=== PATIENT | female | born 1975 | race Caucasian/White ===

== ENCOUNTER → 2018-06-30 | Outpatient (CLI) | payer MEDICAID ==
--- NOTE | 2018-06-30 08:45 | MM ---
Reason for exam: clinical finding. Last mammogram was performed 3 years ago. History: Took hormonal contraceptives for 8 years. Indicated problem(s): lump or thickening in the left breast. Physical Findings: Nurse did not find any significant physical abnormalities on exam. MG 3D Diag Mammo W/Cad PHILLY Bilateral CC, MLO, and XCCL view(s) were taken. Prior study comparison: July 12, 2015, bilateral MG 3d screening mammo w/cad. December 19, 2010, right diagnostic mammogram w/CAD. The breast tissue is heterogeneously dense. This may lower the sensitivity of mammography. There are benign appearing round calcifications bilaterally. There is no discrete abnormality. These results were verbally communicated with the patient and result sheet given to the patient on 06/30/18. ASSESSMENT: Incomplete: need additional imaging evaluation, BI-RAD 0 RECOMMENDATION: Ultrasound of the left breast. (palpable by doctor)
--- NOTE | 2018-06-30 08:47 | USB ---
Reason for exam: clinical finding. History: Took hormonal contraceptives for 8 years. US Breast Limited LT Left limited breast ultrasound including focal area of concern, retroareolar and axilla demonstrates no cystic or solid lesion seen. These results were verbally communicated with the patient and result sheet given to the patient on 06/30/18. ASSESSMENT: Negative, BI-RAD 1 RECOMMENDATION: Routine screening mammogram of both breasts in 1 year. Manage on a clinical basis with regard to left palpable.
== END ==
LOC: RADMAMWWP 06:58
PROVIDERS: ATTEND Family Medicine
DX: N63.10 Unspecified lump in the right breast, unspecified quadrant (principal); N63.20 Unspecified lump in the left breast, unspecified quadrant; R92.8 Other abnormal and inconclusive findings on diagnostic imaging of breast
CPT/HCPCS: 77062; 77066

== ENCOUNTER 2020-04-17 10:20 | Inpatient (IN) | payer MEDICAID, OTHER ==
[2020-04-17] MEDS ORDERED: DEXAMETHASONE SOD PHOSPHATE 10 MG/ML 1 ML VIAL IV STA (10:42)
--- NOTE | 2020-04-17 10:42 | ED ---
General Adult HPI - General Chief complaint: Shortness of Breath Stated complaint: Fever, MAIDA, Chest Pain Time Seen by Provider: 04/17/20 10:29 Source: patient Mode of arrival: ambulatory Limitations: no limitations - History of Present Illness Initial comments: Dictation was produced using [employer] dictation software. please excuse any grammatical, word or spelling errors. This patient was cared for during a federal and state declared state of e mergency secondary to Covid 19 Chief Complaint: 44-year-old female presents to the emergency department for dyspnea History of Present Illness: Is a 44-year-old female. She is in the emergency department for dyspnea. Patient believes that she has Covid. Patient recently returned from [place] where she spent several days in [place]. She has increased fatigue and weakness. She also has fever and shortness of breath. Patient does also complain of palpitations. Patient's past medical history dyslipidemia and hypertension. She does have history of tobacco use. History is limited due to patient's acute dyspnea. She denies any leg pain. No history of DVT. The ROS documented in this emergency department record has been reviewed and confirmed by me. Those systems with pertinent positive or negative responses have been documented in the HPI. All other systems are other negative and/or noncontributory. PHYSICAL EXAM: General Impression: Alert and oriented x3, respiratory distress, tachypneic HEENT: Normocephalic atraumatic, extra-ocular movements intact, pupils equal and reactive to light bilaterally, mucous membranes moist. Cardiovascular: Tachycardic Chest: 2 word sentences, mild retractions, tachypneic, diffuse lung crackles with auscultation of the lungs Abdomen: abdomen soft, non-tender, non-distended, no organomegaly Musculoskeletal: Pulses present and equal in all extremities, no peripheral edema Motor: no focal deficits noted Neurological: CN II-XII grossly intact, no focal motor or sensory deficits noted Skin: Intact with no visualized rashes Psych: Normal affect and mood ED course: 44-year-old female presents to the emergency department for dyspnea. Signs upon arrival shows heart rate of 135, oxygen saturation of 76% on room air. Patient does not use home O2. Patient is toxic appearing due to respiratory distress. She has severe crackles diffusely with auscultation to the lungs. Chest x-ray shows dictation of the complete right hemithorax and left inferior hemithorax. Patient based on BiPAP for respiratory support. suspect covid 19 with ARDS. Laboratory evaluation obtained. Leukocytosis 23.2, neutrophils of 20.8. Coag panel is negative. Metabolic panel obtained. Mild hyponatremia 131, anion gap of 17 with a bicarb of 16. Elevated renal markers. Slight elevation in liver markers. Arterial blood gas shows pH of 7.34, pCO2 of 33, pO2 of 77 with a FiO2 of 60. No lactic acidosis. Troponin is negative. Patient started on broad- spectrum antibiotics. Case is discussed with director prospect Dr. Zarco who is willing to accept patients care to the ICU. Case was also discussed with Dr. Jordan was willing to accept patient's care on behalf of [facility] hospitalist group.Physical concern of sepsis however patient does not have lactic acidosis noted that she have hypertension. Nonetheless given patient's respiratory status she'll be admitted to ICU. EKG interpretation: Ventricular rate 133, sinus tachycardia,. Interval 124, QRS 84, QTC 449. No UT prolongation, no QTC prolongation, no ST or T-wave changes noted. - Related Data Home Medications Medication Instructions Recorded Confirmed Ibuprofen [Motrin] 800 mg PO TID PRN 08/15/18 04/17/20 Montelukast [Singulair] 10 mg PO HS 08/15/18 04/17/20 Simvastatin [Zocor] 20 mg PO HS 08/15/18 04/17/20 Albuterol Sulfate [Albuterol 2 puff PO Q4H PRN 04/17/20 04/17/20 Sulfate Hfa] Fluticasone Nasal [place] [Flonase 1 spray EA NOSTRIL BID 04/17/20 04/17/20 Nasal [place]] Irbesartan [Avapro] 300 mg PO DAILY 04/17/20 04/17/20 Triamterene/Hydrochlorothiazid 1 cap PO DAILY 04/17/20 04/17/20 [Dyazide 37.5-25 Capsule] amLODIPine [Norvasc] 5 mg PO DAILY 04/17/20 04/17/20 Allergies Allergy/AdvReac Type Severity Reaction Status Date / Time codeine AdvReac night Verified 04/17/20 11:44 sweats Review of Systems ROS Statement: Those systems with pertinent positive or pertinent negative responses have been documented in the HPI. ROS Other: All systems not noted in ROS Statement are negative. Past Medical History Past Medical History: Hyperlipidemia, Hypertension Additional Past Medical History / Comment(s): PCOS History of Any Multi-Drug Resistant Organisms: None Reported Past Surgical History: Section, Tubal Ligation Additional Past Surgical History / Comment(s): cyst removal, Past Psychological History: No Psychological Hx Reported Smoking Status: Current every day smoker Past Alcohol Use History: Daily Past Drug Use History: None Reported - Past Family History Father Family Medical History: Diabetes Mellitus Mother Additional Family Medical History / Comment(s): Mother of ETOH abuse at the age of 61 yrs. General Exam Limitations: no limitations Course Vital Signs 04/17/20 04/17/20 04/17/20 10:23 11:09 12:50 Temperature 98.7 F 99.0 F Pulse Rate 135 H 129 H Respiratory 18 22 Rate Blood Pressure 117/71 102/58 O2 Sat by Pulse 76 L 93 L 93 L Oximetry Medical Decision Making - Lab Data Result diagrams: 04/17/20 11:02 04/17/20 11:02 Lab Results 04/17/20 04/17/20 04/17/20 Range/Units 11:02 11:02 11:02 WBC 23.2 H (3.8-10.6) k/uL RBC 4.31 (3.80-5.40) m/uL Hgb 13.6 (11.4-16.0) gm/dL Hct 39.5 (34.0-46.0) % MCV 91.7 (80.0-100.0) fL MCH 31.6 (25.0-35.0) pg MCHC 34.4 (31.0-37.0) g/dL RDW 14.6 (11.5-15.5) % Plt Count 213 (150-450) k/uL MPV 10.7 Neutrophils % (Manual) 59 % Band Neuts % (Manual) 31 % Lymphocytes % (Manual) 1 % Monocytes % (Manual) 3 % Eosinophils % (Manual) 1 % Metamyelocytes % 5 % Myelocytes % 2 % Neutrophils # (Manual) 20.80 H (1.3-7.7) k/uL Lymphocytes # (Manual) 0.23 L (1.0-4.8) k/uL Monocytes # (Manual) 0.70 (0-1.0) k/uL Eosinophils # (Manual) 0.23 (0-0.7) k/uL Metamyelocytes # (Man) 1.16 H (0) k/uL Myelocytes # (Manual) 0.46 H (0) k/uL Nucleated RBCs 0 (0-0) /100 WBC Manual Slide Review Performed Toxic Granulation Present Toxic Vacuolation Present PT (9.0-12.0) sec INR (<1.2) APTT (22.0-30.0) sec Sodium 131 L (137-145) mmol/L Potassium 4.0 (3.5-5.1) mmol/L Chloride 98 (98-107) mmol/L Carbon Dioxide 16 L (22-30) mmol/L Anion Gap 17 mmol/L BUN 42 H (7-17) mg/dL Creatinine 1.65 H (0.52-1.04) mg/dL Est GFR (CKD-EPI)AfAm 43 (>60 ml/min/1.73 sqM) Est GFR (CKD-EPI)NonAf 37 (>60 ml/min/1.73 sqM) Glucose 90 (74-99) mg/dL POC Glucose (mg/dL) (75-99) mg/dL POC Glu Brusher ID Plasma Lactic Acid Abr[place] 1.8 (0.7-2.0) mmol/L Calcium 8.1 L (8.4-10.2) mg/dL Magnesium 1.9 (1.6-2.3) mg/dL Total Bilirubin 0.8 (0.2-1.3) mg/dL AST 150 H (14-36) U/L ALT 57 H (4-34) U/L Alkaline Phosphatase 136 H (38-126) U/L Troponin I (0.000-0.034) ng/mL NT-Pro-B Natriuret Pep pg/mL Total Protein 6.0 L (6.3-8.2) g/dL Albumin 3.1 L (3.5-5.0) g/dL Coronavirus (PCR) (Not Detectd) 04/17/20 04/17/20 04/17/20 Range/Units 11:02 11:02 11:02 WBC (3.8-10.6) k/uL RBC (3.80-5.40) m/uL Hgb (11.4-16.0) gm/dL Hct (34.0-46.0) % MCV (80.0-100.0) fL MCH (25.0-35.0) pg MCHC (31.0-37.0) g/dL RDW (11.5-15.5) % Plt Count (150-450) k/uL MPV Neutrophils % (Manual) % Band Neuts % (Manual) % Lymphocytes % (Manual) % Monocytes % (Manual) % Eosinophils % (Manual) % Metamyelocytes % % Myelocytes % % Neutrophils # (Manual) (1.3-7.7) k/uL Lymphocytes # (Manual) (1.0-4.8) k/uL Monocytes # (Manual) (0-1.0) k/uL Eosinophils # (Manual) (0-0.7) k/uL Metamyelocytes # (Man) (0) k/uL Myelocytes # (Manual) (0) k/uL Nucleated RBCs (0-0) /100 WBC Manual Slide Review Toxic Granulation Toxic Vacuolation PT (9.0-12.0) sec INR (<1.2) APTT (22.0-30.0) sec Sodium (137-145) mmol/L Potassium (3.5-5.1) mmol/L Chloride (98-107) mmol/L Carbon Dioxide (22-30) mmol/L Anion Gap mmol/L BUN (7-17) mg/dL Creatinine (0.52-1.04) mg/dL Est GFR (CKD-EPI)AfAm (>60 ml/min/1.73 sqM) Est GFR (CKD-EPI)NonAf (>60 ml/min/1.73 sqM) Glucose (74-99) mg/dL POC Glucose (mg/dL) (75-99) mg/dL POC Glu Brusher ID Plasma Lactic Acid Abran (0.7-2.0) mmol/L Calcium (8.4-10.2) mg/dL Magnesium (1.6-2.3) mg/dL Total Bilirubin (0.2-1.3) mg/dL AST (14-36) U/L ALT (4-34) U/L Alkaline Phosphatase (38-126) U/L Troponin I <0.012 (0.000-0.034) ng/mL NT-Pro-B Natriuret Pep 275 pg/mL Total Protein (6.3-8.2) g/dL Albumin (3.5-5.0) g/dL Coronavirus (PCR) Not Detected (Not Detectd) 04/17/20 04/17/20 Range/Units 11:33 11:33 WBC (3.8-10.6) k/uL RBC (3.80-5.40) m/uL Hgb (11.4-16.0) gm/dL Hct (34.0-46.0) % MCV (80.0-100.0) fL MCH (25.0-35.0) pg MCHC (31.0-37.0) g/dL RDW (11.5-15.5) % Plt Count (150-450) k/uL MPV Neutrophils % (Manual) % Band Neuts % (Manual) % Lymphocytes % (Manual) % Monocytes % (Manual) % Eosinophils % (Manual) % Metamyelocytes % % Myelocytes % % Neutrophils # (Manual) (1.3-7.7) k/uL Lymphocytes # (Manual) (1.0-4.8) k/uL Monocytes # (Manual) (0-1.0) k/uL Eosinophils # (Manual) (0-0.7) k/uL Metamyelocytes # (Man) (0) k/uL Myelocytes # (Manual) (0) k/uL Nucleated RBCs (0-0) /100 WBC Manual Slide Review Toxic Granulation Toxic Vacuolation PT 10.3 (9.0-12.0) sec INR 1.0 (<1.2) APTT 26.8 (22.0-30.0) sec Sodium (137-145) mmol/L Potassium (3.5-5.1) mmol/L Chloride (98-107) mmol/L Carbon Dioxide (22-30) mmol/L Anion Gap mmol/L BUN (7-17) mg/dL Creatinine (0.52-1.04) mg/dL Est GFR (CKD-EPI)AfAm (>60 ml/min/1.73 sqM) Est GFR (CKD-EPI)NonAf (>60 ml/min/1.73 sqM) Glucose (74-99) mg/dL POC Glucose (mg/dL) 98 (75-99) mg/dL POC Glu Brusher ID Simran Vincent Plasma Lactic Acid Abran (0.7-2.0) mmol/L Calcium (8.4-10.2) mg/dL Magnesium (1.6-2.3) mg/dL Total Bilirubin (0.2-1.3) mg/dL AST (14-36) U/L ALT (4-34) U/L Alkaline Phosphatase (38-126) U/L Troponin I (0.000-0.034) ng/mL NT-Pro-B Natriuret Pep pg/mL Total Protein (6.3-8.2) g/dL Albumin (3.5-5.0) g/dL Coronavirus (PCR) (Not Detectd) Critical Care Time Critical Care Time: Yes Total Critical Care Time: 33 Disposition Clinical Impression: Hypoxia, Respiratory failure Disposition: ADMITTED IP TO THIS [facility] Condition: Critical Decision Time: 13:07
--- NOTE | 2020-04-17 10:45 | XR ---
EXAMINATION TYPE: XR chest 1V portable DATE OF EXAM: 04/17/2020 COMPARISON: NONE HISTORY: Shortness of breath TECHNIQUE: Single frontal view of the chest is obtained. FINDINGS: There is diffuse bilateral airspace disease with near complete opacification of the right and significant consolidation on the left. No sizable pneumothorax. No obvious pleural effusion. IMPRESSION: Bilateral diffuse opacification. Pneumonia favored over pulmonary edema correlate clinic ally.
[2020-04-17] MEDS ORDERED: CEFEPIME 2 GM in SODIUM CHLORIDE 0.9% 100 ML IVPB STA (11:13)
[2020-04-17 11:33] LABS: HCT 39.5 % (34.0-46.0); HGB 13.6 gm/dL (11.4-16.0); MCH 31.6 pg (25.0-35.0); MCHC 34.4 g/dL (31.0-37.0); MCV 91.7 fL (80.0-100.0); Mean Platelet Volume 10.7; Platelet Count 213 k/uL (150-450); RBC 4.31 m/uL (3.80-5.40); RDW 14.6 % (11.5-15.5); WBC 23.2 k/uL (3.8-10.6)
[2020-04-17 11:34] LABS: Glucose,Whole Blood 98 mg/dL (75-99)
[2020-04-17 11:42] LABS: Albumin 3.1 g/dL (3.5-5.0); Calcium 8.1 mg/dL (8.4-10.2); Magnesium 1.9 mg/dL (1.6-2.3); Total Bilirubin 0.8 mg/dL (0.2-1.3)
[2020-04-17 11:46] LABS: Band Neutrophils % 31 %; Eosinophils # (M) 0.23 k/uL (0-0.7); Lymphocytes # (M) 0.23 k/uL (1.0-4.8); Metamyelocytes # (M) 1.16 k/uL (0); Metamyelocytes % 5 %; Myelocytes # (M) 0.46 k/uL (0); Myelocytes % 2 %; Neutrophils % (M) 59 %; Nucleated Red Blood Cells 0 /100 WBC (0-0); Total Cells Counted 200; Toxic Granulation Present; Toxic Vacuolation Present
--- NOTE | 2020-04-17 11:48 | CT ---
EXAMINATION TYPE: CT angio chest DATE OF EXAM: 04/17/2020 11:34 AM COMPARISON: None HISTORY: Shortness of breath and cough for [address] DLP: 414.5 mGycm Automated exposure control for dose reduction was used. CONTRAST: CTA scan of the thorax is performed with IV Contrast, patient injected with 100 mL of Isovue 370, pul monary embolism protocol. . FINDINGS: LUNGS: Diffuse bilateral consolidation greater on the right. Significant artifact limits assessment o f the pulmonary arteries. No pleural effusion or pneumothorax. MEDIASTINUM: There is limited assessment of the pulmonary arteries with extensive artifacts especiall y centrally. Cannot exclude central pulmonary embolism. Numerous areas of artifact are seen. Aorta of normal caliber. Heart size normal. OTHER: Deformity of the sternum on the sagittal image likely related to motion artifact rather than fracture correlate with point tenderness. Hypertrophic and degenerative changes of the spine. IMPRESSION: 1. Near complete consolidation of the right lung and extensive consolidation of the left lung correla te for pneumonia. 2. Severe artifacts results in nondiagnostic assessment for pulmonary embolism centrally. Could not e xclude pulmonary embolism on this exam. Correlate clinically. 3. Deformity of the sternum on the sagittal image most likely related to motion artifact rather than fracture correlate with point tenderness.
[2020-04-17] MEDS ORDERED: SODIUM CHLORIDE 0.9% 1,000 ML IV STA (11:51)
[2020-04-17] MEDS ORDERED: NALOXONE 0.4 MG/ML 1 ML VIAL IV PRN (12:01)
[2020-04-17 12:06] LABS: Partial Thromboplastin Time 26.8 sec (22.0-30.0); Prothrombin Time 10.3 sec (9.0-12.0)
[2020-04-17 12:17] LABS: ABG Base Excess -8.1 mmol/L; ABG HCO3 18 mmol/L (21-25); ABG PCO2 33 mmHg (35-45); ABG PH 7.34 (7.35-7.45); ABG PO2 77 mmHg (83-108); ABG TCO2 19 mmol/L (19-24); Allen Test Performed? Yes
--- NOTE | 2020-04-17 12:34 | P.HPIM ---
History of Present Illness 44-year-old the pleasant female came in with compensative for shortness of breath. General his body aches and fever chills patient symptoms has been going on for about a week patient recently returned from [place] from [place] patient is a unaware of any exposure to sick people although patient was exposed to many people when she visited a [place]. Patient had a chest x-ray and a computed tomography scan of the chest which showed extensive consolidation of the right lung and some consolidation and infiltrate consistent with "on the left side. Covid 19 PCR is still pending. Patient is presently on BiPAP patient is being admitted to intensive care unit Review of Systems REVIEW OF SYSTEMS: CONSTITUTIONAL: As mentioned in HPI HEENT: No recent visual problems or hearing problems. Denied any sore throat. CARDIOVASCULAR: No chest pain, orthopnea, PND, no palpitations, no syncope. PULMONARY: As mentioned in HPI GASTROINTESTINAL: No diarrhea, no nausea, no vomiting, no abdominal pain. NEUROLOGICAL: No headaches, no weakness, no numbness. HEMATOLOGICAL: Denies any bleeding or petechiae. GENITOURINARY: Denies any burning micturition, frequency, or urgency. MUSCULOSKELETAL/RHEUMATOLOGICAL: Denies any joint pain, swelling, or any muscle pain. ENDOCRINE: Denies any polyuria or polydipsia. The rest of the 14-point review of systems is negative. Past Medical History Past Medical History: Hyperlipidemia, Hypertension Additional Past Medical History / Comment(s): PCOS History of Any Multi-Drug Resistant Organisms: None Reported Past Surgical History: Section, Tubal Ligation Additional Past Surgical History / Comment(s): cyst removal, Past Psychological History: No Psychological Hx Reported Smoking Status: Current every day smoker Past Alcohol Use History: Daily Past Drug Use History: None Reported Medications and Allergies Home Medications Medication Instructions Recorded Confirmed Type Ibuprofen [Motrin] 800 mg PO TID PRN 08/15/18 04/17/20 History Montelukast [Singulair] 10 mg PO HS 08/15/18 04/17/20 History Simvastatin [Zocor] 20 mg PO HS 08/15/18 04/17/20 History Albuterol Sulfate [Albuterol 2 puff PO Q4H PRN 04/17/20 04/17/20 History Sulfate Hfa] Fluticasone Nasal [place] [Flonase 1 spray EA NOSTRIL BID 04/17/20 04/17/20 History Nasal [place]] Irbesartan [Avapro] 300 mg PO DAILY 04/17/20 04/17/20 History Triamterene/Hydrochlorothiazid 1 cap PO DAILY 04/17/20 04/17/20 History [Dyazide 37.5-25 Capsule] amLODIPine [Norvasc] 5 mg PO DAILY 04/17/20 04/17/20 History Allergies Allergy/AdvReac Type Severity Reaction Status Date / Time codeine AdvReac night Verified 04/17/20 11:44 sweats Physical Exam Vitals: Vital Signs Temp Pulse Resp BP Pulse Ox 04/17/20 11:09 93 L 04/17/20 10:23 98.7 F 135 H 18 117/71 76 L Intake and Output 04/16/20 04/17/20 04/17/20 22:59 06:59 14:59 Other: Weight 90.718 kg PHYSICAL EXAMINATION: GENERAL: The patient is alert and oriented x3, patient is still in acute distress in spite of her BiPAP. Well developed, well nourished. HEENT: Pupils are round and equally reacting to light. EOMI. No scleral icterus. No conjunctival pallor. Normocephalic, atraumatic. No pharyngeal erythema. No thyromegaly. CARDIOVASCULAR: S1 and S2 present. No murmurs, rubs, or gallops. PULMONARY: Good air entry into bilateral lung morales crackles on entire right p osterior lung morales. ABDOMEN: Soft, nontender, nondistended, normoactive bowel sounds. No palpable organomegaly. MUSCULOSKELETAL: No joint swelling or deformity. EXTREMITIES: No cyanosis, clubbing, or pedal edema. NEUROLOGICAL: Gross neurological examination did not reveal any focal deficits. SKIN: No rashes. Results CBC & Chem 7: 04/17/20 11:02 Labs: Abnormal Lab Results - Last 24 Hours (Table) 04/17/20 04/17/20 Range/Units 11:02 12:10 WBC 23.2 H (3.8-10.6) k/uL Neutrophils # (Manual) 20.80 H (1.3-7.7) k/uL Lymphocytes # (Manual) 0.23 L (1.0-4.8) k/uL Metamyelocytes # (Man) 1.16 H (0) k/uL Myelocytes # (Manual) 0.46 H (0) k/uL ABG pH 7.34 L (7.35-7.45) ABG pCO2 33 L (35-45) mmHg ABG pO2 77 L (83-108) mmHg ABG HCO3 18 L (21-25) mmol/L Assessment and Plan Plan: -Acute hypoxic respiratory failure: Secondary to sepsis and pneumonia which is again secondary to possible Covid 19 infection. Patient was given Decadron patient was also given empiric antibiotics as a secondary bacterial pneumonia cannot be ruled out and considering the severity of her hypoxemia and it's probably reasonable to continue with empiric antibiotics. Patient will be transferred to ICU user experience architect was notified. -Leukocytosis secondary to severe sepsis next and-hypertension hold off antiemesis medications with concerns of hypotension secondary to sepsis -DVT prophylaxis: D-dimer is pending depending on the d-dimer, will decide on the dose of Lovenox. I do not have any basic volley profile available at this time either -Tachycardia secondary to severe sepsis.
[2020-04-17 13:22] LABS: Glucose,Whole Blood 110 mg/dL (75-99)
[2020-04-17] MEDS ORDERED: ALBUTEROL NEBULIZED 2.5 MG/3 ML INHALATION PRN (13:55)
--- NOTE | 2020-04-17 14:10 | P.CNPUL ---
History of Present Illness Consult date: 04/17/20 Requesting physician: Thai Csatro Reason for consult: dyspnea, cough, asthma, hypoxemia, pneumonia, abnormal CXR/CT Chief complaint: Shortness of breath. History of present illness: This is a 44-year-old female that we were asked to see in consultation. The patient has a history of chronic bronchial asthma, hypertension, hyperlipidemia, and palpitations. The patient sees Dr. Jenkins as a primary. The patient has been smoking for about 32 years, and CHF 14. Anyway, the patient went down to [place] recently on vacation. She was irritable right around mid March. She was healthy down there without any major issues. She went down there with her and I note a couple. Nobody was sick or subsequently has gotten sick. In addition, no family members have been held. The patient states that last , she started getting symptoms. This included weakness and fatigu e, shortness of breath, cough, chest tightness, and generally just not feeling well. The shortness of breath got so bad, that she decided to come into the emergency room to be evaluated. There she was seen by Dr. Forbes. The patient initially came in with a heart rate of 135, and saturations on room air was 76%. The patient was placed on oxygen therapy there, had a chest x-ray, I CAT scan, blood work, and was given antibiotics. He call me on the phone because he thought the patient would be best served in the intensive care unit and I agreed. The patient's chest x-ray shows near complete opacification of the right hemithorax, as well as some infiltrate in the left midlung and left lower lobe. The computed tomography scan is very impressive as well. Her rapid antigen test for coronaavirus was negative. A PCR test was ordered. The CAT scan doesn't really look like COVID 19 but rather looks more consolidative like somebody with bacterial pneumonia. The patient was placed on Rocephin, and we added azithromycin. Currently, the patient's in the intensive care unit on BiPAP with settings of IPAP 12, EPAP 6, and 60%. The patient also has a basic IV. We will make sure that she has appropriate orders including albuterol inhaler, and Symbicort 160/4.5, 2 puffs twice a day. If her caronavirus PCR comes back negative, we'll switch her to Pulmicort 1 mg along with formoterol, 20 g, twice a day. We'll also place her on some corticosteroids. We'll add vitamin C, vitamin D3, and zinc. We'll also make sure that she has proper GI and DVT prophylaxis. Finally, we'll make sure that she has blood urine and sputum cultures, and, we will go ahead and order inflammatory markers, as well as mycoplasma IgM antibodies, and a urinary Legionella antigen. Review of Systems REVIEW OF SYSTEMS: CONSTITUTIONAL: Weakness and fatigue CONSTITUTIONAL: Slight fever NEUROLOGIC: [ Negative.] HEENT: [ Negative.] CARDIAC: [Negative.] PULMONARY: Shortness of breath, chest tightness, cough, without phlegm production. GI: [Negative.] : [Negative.] RHEUMATOLOGIC: [ Negative.] IMMUNOLOGIC: [ Negative.] ENDOCRINE: [Negative. ] DERMATOLOGIC: [Negative.] Past Medical History Past Medical History: Hyperlipidemia, Hypertension Additional Past Medical History / Comment(s): PCOS History of Any Multi-Drug Resistant Organisms: None Reported Past Surgical History: Section, Tubal Ligation Additional Past Surgical History / Comment(s): cyst removal, Past Anesthesia/Blood Transfusion Reactions: No Reported Reaction Past Psychological History: No Psychological Hx Reported Smoking Status: Current every day smoker Past Alcohol Use History: Daily Past Drug Use History: None Reported - Past Family History Father Family Medical History: Diabetes Mellitus Mother Additional Family Medical History / Comment(s): Mother of ETOH abuse at the age of 61 yrs. Medications and Allergies Home Medications Medication Instructions Recorded Confirmed Type Ibuprofen [Motrin] 800 mg PO TID PRN 08/15/18 04/17/20 History Montelukast [Singulair] 10 mg PO HS 08/15/18 04/17/20 History Simvastatin [Zocor] 20 mg PO HS 08/15/18 04/17/20 History Albuterol Sulfate [Albuterol 2 puff PO Q4H PRN 04/17/20 04/17/20 History Sulfate Hfa] Fluticasone Nasal [place] [Flonase 1 spray EA NOSTRIL BID 04/17/20 04/17/20 History Nasal [place]] Irbesartan [Avapro] 300 mg PO DAILY 04/17/20 04/17/20 History Triamterene/Hydrochlorothiazid 1 cap PO DAILY 04/17/20 04/17/20 History [Dyazide 37.5-25 Capsule] amLODIPine [Norvasc] 5 mg PO DAILY 04/17/20 04/17/20 History Allergies Allergy/AdvReac Type Severity Reaction Status Date / Time codeine AdvReac night Verified 04/17/20 11:44 sweats Physical Exam Osteopathic Statement: *. No significant issues noted on an osteopathic structural exam other than those noted in the History and Physical/Consult. Vitals: Vital Signs Temp Pulse Resp BP Pulse Ox 04/17/20 12:50 99.0 F 129 H 22 102/58 93 L 04/17/20 11:09 93 L 04/17/20 10:23 98.7 F 135 H 18 117/71 76 L Intake and Output 04/16/20 04/17/20 04/17/20 22:59 06:59 14:59 Other: Weight 90.718 kg Currently on BiPAP, conversational dyspnea present, no audible wheezing, no use of accessory muscles. Patient able to speak in full sentences. HEENT examination is grossly unremarkable. Mucous membranes are moist. BiPAP mask in place. Neck supple. Full range of motion. No adenopathy thyromegaly or neck vein distention. Cardiovascular examination reveals regular rhythm rate. S1-S2 normal. No S3 or S4. No discernible murmur noted. Heart sounds distant. Heart rate about 124 bpm. Lungs reveal diffuse coarse rhonchi. No wheezes or crackles. Breath sounds equal but diminished throughout. Abdomen soft bowel sounds are heard. No masses or tenderness. Extremities are intact. No cyanosis clubbing or edema. Skin is without rash or lesion. Neurologic examination is brief but nonfocal. Results - Laboratory Findings CBC and BMP: 04/17/20 11:02 04/17/20 11:02 ABG ABG pH 7.34 (7.35-7.45) L 04/17/20 12:10 ABG pCO2 33 mmHg (35-45) L 04/17/20 12:10 ABG pO2 77 mmHg (83-108) L 04/17/20 12:10 ABG O2 Saturation 95.0 % (94-97) 04/17/20 12:10 PT/INR, D-dimer PT 10.3 sec (9.0-12.0) 04/17/20 11:33 INR 1.0 (<1.2) 04/17/20 11:33 Abnormal lab findings: Abnormal Labs 04/17/20 04/17/20 04/17/20 11:02 11:02 12:10 WBC 23.2 H Neutrophils # (Manual) 20.80 H Lymphocytes # (Manual) 0.23 L Metamyelocytes # (Man) 1.16 H Myelocytes # (Manual) 0.46 H ABG pH 7.34 L ABG pCO2 33 L ABG pO2 77 L ABG HCO3 18 L Sodium 131 L Carbon Dioxide 16 L BUN 42 H Creatinine 1.65 H POC Glucose (mg/dL) Calcium 8.1 L AST 150 H ALT 57 H Alkaline Phosphatase 136 H C-Reactive Protein 608.0 H Total Protein 6.0 L Albumin 3.1 L 04/17/20 13:20 WBC Neutrophils # (Manual) Lymphocytes # (Manual) Metamyelocytes # (Man) Myelocytes # (Manual) ABG pH ABG pCO2 ABG pO2 ABG HCO3 Sodium Carbon Dioxide BUN Creatinine POC Glucose (mg/dL) 110 H Calcium AST ALT Alkaline Phosphatase C-Reactive Protein Total Protein Albumin - Diagnostic Findings Chest x-ray: image reviewed CT scan - chest: image reviewed Assessment and Plan Assessment: Extensive bilateral, right greater than left, pneumonia, thought to be community acquired. COVID 19 not ruled out at this point. Acute hypoxemic respiratory failure secondary to extensive consolidative pneumonia bilaterally. History of asthma. History of hypertension. History of hyperlipidemia. History of chronic tobacco use with nicotine addiction, having smoked for 32 years, rule out COPD. Mild metabolic acidosis. Rule out acute kidney injury. History of palpitations. Plan: Plan dated 04/17/2020. The patient is being maintained on BiPAP, with IPAP of 12, EPAP 6, and 60%. With that, her saturations are in the low 90s. The patient also has a basic IV in place. The patient was started on Rocephin and azithromycin for community- acquired pneumonia. Her rapid COVID test was negative. The confirmatory PCR test was also ordered. We will get blood urine and sputum sampling on her. In addition, she is given an albuterol inhaler, and Symbicort 160/4.5, 2 puffs twice a day. If her PCR comes back negative, we will switch her to DuoNeb, along with Pulmicort 1 mg, and formoterol 20 g twice a day. In addition, we will give her vitamin C, vitamin D3, and zinc a usual doses, and order inflammatory markers. We also order pro-calcitonin level. Her labs are reviewed. I count 23.2, he will 13.6, hematocrit 39.5, and platelet count 213,000. PT/INR and PTT are normal. A d-dimer will be ordered. Arterial blood gases on 60% show a PaO2 of 77, PaCO2 of 33, and a pH of 7.34. His blood gases consistent with hypoxemia, and a mild metabolic acidosis. The acidosis is an anion gap metabolic acidosis. Sodium 131, potassium 4, chloride 98, CO2 16, anion gap 17, BUN 42, and creatinine 1.65. Lactic acid initially was 1.8. Alkaline phosphatase 136, ALT was 57. Albumin 3.1. C-reactive protein 608. The patient will also have a urine antigen for Legionella, as well as mycoplasma IgM antibodies. Additional recommendations and suggestions are forthcoming. Prognosis is guarded. We are hoping that she responds to therapy and does not e nd up on mechanical ventilation. Time with Patient: Greater than 30
[2020-04-17] MEDS: SODIUM CHLORIDE 0.9% 1,000 ML IV SCH ×2 (16:03→20:49)
[2020-04-17] MEDS: ENOXAPARIN 40 MG/0.4 ML SYRINGE SQ SCH (16:04)
[2020-04-17] MEDS: methylPREDNISolone SOD SUCCI 40 MG/ML 1 ML VIAL IV SCH ×2 (16:05→23:36)
[2020-04-17] MEDS: FAMOTIDINE 20 MG/2 ML VIAL IV SCH (16:06)
[2020-04-17] MEDS: AZITHROMYCIN 500 MG in SODIUM CHLORIDE 0.9% 250 ML IVPB SCH (16:06)
[2020-04-17] MEDS: SYMBICORT 160-4.5 MCG INHALER INHALATION SCH (20:25)
[2020-04-17] MEDS: MONTELUKAST 10 MG TAB PO SCH (20:40)
[2020-04-17] MEDS: MELATONIN 5 MG TABLET PO SCH (20:40)
[2020-04-17] MEDS: ATORVASTATIN 10 MG TAB PO SCH (20:40)
[2020-04-17] MEDS: ASCORBIC ACID 500 MG TAB PO SCH (20:40)
[2020-04-17] MEDS: ACETAMINOPHEN TAB 325 MG TAB PO PRN (23:36)
[2020-04-18 04:27] LABS: Basophils # (A) 0.1 k/uL (0-0.2); Basophils % (A) 0 %; Eosinophils % (A) 0 %; HCT 35.4 % (34.0-46.0); HGB 11.9 gm/dL (11.4-16.0); Lymphocytes % (A) 4 %; MCH 31.5 pg (25.0-35.0); MCHC 33.7 g/dL (31.0-37.0); MCV 93.5 fL (80.0-100.0); Mean Platelet Volume 9.4; Monocytes # (A) 0.3 k/uL (0-1.0); Monocytes % (A) 2 %; Neutrophils # (A) 20.6 k/uL (1.3-7.7); Neutrophils % (A) 93 %; Platelet Count 179 k/uL (150-450); RBC 3.79 m/uL (3.80-5.40); RDW 14.1 % (11.5-15.5); WBC 22.1 k/uL (3.8-10.6)
[2020-04-18 04:41] LABS: Albumin 2.6 g/dL (3.5-5.0); Calcium 7.5 mg/dL (8.4-10.2); Potassium 3.6 mmol/L (3.5-5.1); Total Bilirubin 0.4 mg/dL (0.2-1.3); Total Protein 5.1 g/dL (6.3-8.2)
[2020-04-18] MEDS ORDERED: Potassium Replacement Protocol 1 EACH MISC MISCELLANE PRN (04:52)
[2020-04-18] MEDS: POTASSIUM CHLORIDE 10 MEQ in WATER FOR INJECTION 1 100ML.BAG IVPB SCH ×2 (04:56→06:03)
[2020-04-18] MEDS: SODIUM CHLORIDE 0.9% 1,000 ML IV SCH ×2 (06:03→14:24)
--- NOTE | 2020-04-18 06:51 | XR ---
EXAMINATION TYPE: XR chest 1V portable DATE OF EXAM: 04/18/2020 CLINICAL HISTORY: Difficulty breathing and pneumonia progress study. TECHNIQUE: Single AP portable upright view of the chest is obtained. COMPARISON: Chest x-ray and CTA chest from one day earlier and older studies. FINDINGS: Diffuse right lung opacity with central air bronchograms is redemonstrated. There is left mid to lower lung probably peripheral opacity/consolidation redemonstrated mostly localized to the li ngula. No mediastinal shift. Cardiac silhouette size remains within normal limits. Osseous structures are intact. IMPRESSION: Multiple focal right lung consolidations and peripheral left lingular consolidation consi stent with bilateral multifocal pneumonia. No significant change from one day earlier.
[2020-04-18] MEDS: SYMBICORT 160-4.5 MCG INHALER INHALATION SCH ×2 (08:47→19:42)
[2020-04-18] MEDS: ALBUTEROL HFA INHALER INHALATION PRN ×3 (08:47→19:42)
[2020-04-18] MEDS ORDERED: DEXAMETHASONE SOD PHOSPHATE 10 MG/ML 1 ML VIAL IV SCH (09:00)
[2020-04-18] MEDS: ACETAMINOPHEN TAB 325 MG TAB PO PRN ×4 (09:41→23:52)
[2020-04-18] MEDS: ZINC SULFATE 220 MG CAP PO SCH (09:41)
[2020-04-18] MEDS: CHOLECALCIFEROL 25 MCG (1000 IU) TABLET PO SCH (09:41)
[2020-04-18] MEDS: ASCORBIC ACID 500 MG TAB PO SCH ×2 (09:41→20:49)
[2020-04-18] MEDS: methylPREDNISolone SOD SUCCI 40 MG/ML 1 ML VIAL IV SCH ×3 (09:41→23:52)
[2020-04-18] MEDS: FAMOTIDINE 20 MG/2 ML VIAL IV SCH (09:42)
[2020-04-18] MEDS: amLODIPine 5 MG TAB PO SCH (09:42)
[2020-04-18] MEDS: ENOXAPARIN 40 MG/0.4 ML SYRINGE SQ SCH (09:42)
[2020-04-18 09:49] LABS: Ferritin 1720.2 ng/mL (10.0-291.0)
--- NOTE | 2020-04-18 09:51 | P.PN ---
Subjective Progress Note Date: 04/18/20 Principal diagnosis: Dyspnea, fever This is a 44-year-old female that we were asked to see in consultation. The patient has a history of chronic bronchial asthma, hypertension, hyperlipidemia, and palpitations. The patient sees Dr. Jenkins as a primary. The patient has been smoking for about 32 years, and CHF 14. Anyway, the patient went down to [place] recently on vacation. She was irritable right around mid March. She was healthy down there without any major issues. She went down there with her and I note a couple. Nobody was sick or subsequently has gotten sick. In addition, no family members have been held. The patient states that last , she started getting symptoms. This included weakness and fatigue, shortness of breath, cough, chest tightness, and generally just not feeling well. The shortness of breath got so bad, that she decided to come into the emergency room to be evaluated. There she was seen by Dr. Forbes. The patient initially came in with a heart rate of 135, and saturations on room air was 76%. The patient was placed on oxygen therapy there, had a chest x-ray, I CAT scan, blood work, and was given antibiotics. He call me on the phone because he thought the patient would be best served in the intensive care unit and I agreed. The patient's chest x-ray shows near complete opacification of the right hemithorax, as well as some infiltrate in the left midlung and left lower lobe. The computed tomography scan is very impressive as well. Her rapid antigen test for coronaavirus was negative. A PCR test was ordered. The CAT scan doesn't really look like COVID 19 but rather looks more consolidative like somebody with bacterial pneumonia. The patient was placed on Rocephin, and we added azithromycin. Currently, the patient's in the intensive care unit on BiPAP with settings of IPAP 12, EPAP 6, and 60%. The patient also has a basic IV. We will make sure that she has appropriate orders including albuterol inhaler, and Symbicort 160/4.5, 2 puffs twice a day. If her caronavirus PCR comes back negative, we'll switch her to Pulmicort 1 mg along with formoterol, 20 g, twice a day. We'll also place her on some corticosteroids. We'll add vitamin C, vitamin D3, and zinc. We'll also make sure that she has proper GI and DVT prophylaxis. Finally, we'll make sure that she has blood urine and spu geri cultures, and, we will go ahead and order inflammatory markers, as well as mycoplasma IgM antibodies, and a urinary Legionella antigen. On 04/18/2020 patient seen in follow-up in intensive care unit, she has remained on BiPAP support most of the night, currently with pressures of 12 and 6 and F iO2 of 60%. Her pulse ox is 88-89%, patient is tachycardic, with a rate of 117, in sinus mechanism, she was febrile last night, and the T-max in the last 24 hours was 101.5F. She is on antibiotics in the form of azithromycin and Rocephin. Repeat COVID PCR was negative. Repeat chest x-ray today showed multiple focal right lung consolidations in peripheral left lingular consolidation consistent with bilateral multifocal pneumonia. Today's labs have been reviewed, showing leukocytosis, neutrophilic, with a white blood cell count of 22.1, sodium is 136, potassium 3.6, CO2 was 18, BUN is 33 and creatinine is 1.04. Renal profile has improved since yesterday. Blood and sputum cultures have been sent, and are pending at this time. She is on GI and DVT prophylaxis, her maintenance IV fluids are infusing at a rate of 110/h, she is on inhaled bronchodilators, and IV steroids 40 mg every 8 hours. Patient is short of breath at rest, but no acute distress, no chest pain or hemoptysis. No altered mentation, she is answering questions appropriately. Lung sounds reveal diminished breath sounds. Objective - Vital Signs Vital signs: Vital Signs Temp 98.9 F 04/18/20 04:00 Pulse 117 H 04/18/20 07:00 Resp 32 H 04/18/20 07:00 BP 121/80 04/18/20 07:00 Pulse Ox 89 L 04/18/20 07:00 Intake & Output 04/17/20 04/18/20 04/18/20 18:59 06:59 18:59 Intake Total 1190 110 Output Total 1900 1350 100 Balance -1900 -160 10 Weight 90.718 kg 92.6 kg Intake: IV 1190 110 Potassium Chloride 10 meq 200 In Water For Injection 1 100ml.bag @ 100 mls/hr IVPB Q1H [facility] Rx#: [id number] Sodium Chloride 0.9% 1, 990 110 000 ml @ 110 mls/hr IV . Q9H6M [facility] Rx#:[id number] Output: Urine 1900 1350 100 Other: Voiding Method Bedside Commode Indwelling Catheter - Exam GENERAL EXAM: Alert, very pleasant, 44-year-old white female, on BiPAP support with pressures of 12/6-60%, tachypnea, satting about 80-89% comfortable in no apparent distress. HEAD: Normocephalic/atraumatic. EYES: Normal reaction of pupils, equal size. Conjunctiva pink, sclera white. NOSE: Clear with pink turbinates. THROAT: No erythema or exudates. NECK: No masses, no JVD, no thyroid enlargement, no adenopathy. CHEST: No chest wall deformity. Symmetrical expansion. LUNGS: Equal air entry with no crackles, wheeze, rhonchi or dullness. CVS: Regular rate and rhythm, normal S1 and S2, no gallops, no murmurs, no rubs ABDOMEN: Soft, nontender. No hepatosplenomegaly, normal bowel sounds, no guarding or rigidity. EXTREMITIES: No clubbing, no edema, no cyanosis, 2+ pulses and upper and lower extremities. MUSCULOSKELETAL: Muscle strength and tone normal. SPINE: No scoliosis or deformity SKIN: No rashes CENTRAL NERVOUS SYSTEM: Alert and oriented -3. No focal deficits, tone is normal in all 4 extremities. PSYCHIATRIC: Alert and oriented -3. Appropriate affect. Intact judgment and insight. - Labs CBC & Chem 7: 04/18/20 03:54 04/18/20 03:54 Labs: Abnormal Lab Results - Last 24 Hours (Table) 04/17/20 04/17/20 04/17/20 Range/Units 11:02 11:02 11:33 WBC 23.2 H (3.8-10.6) k/uL RBC (3.80-5.40) m/uL Neutrophils # (1.3-7.7) k/uL Neutrophils # (Manual) 20.80 H (1.3-7.7) k/uL Lymphocytes # (Manual) 0.23 L (1.0-4.8) k/uL Metamyelocytes # (Man) 1.16 H (0) k/uL Myelocytes # (Manual) 0.46 H (0) k/uL D-Dimer 5.24 H (<0.60) mg/L FEU ABG pH (7.35-7.45) ABG pCO2 (35-45) mmHg ABG pO2 (83-108) mmHg ABG HCO3 (21-25) mmol/L Sodium 131 L (137-145) mmol/L Carbon Dioxide 16 L (22-30) mmol/L BUN 42 H (7-17) mg/dL Creatinine 1.65 H (0.52-1.04) mg/dL Glucose (74-99) mg/dL POC Glucose (mg/dL) (75-99) mg/dL Calcium 8.1 L (8.4-10.2) mg/dL AST 150 H (14-36) U/L ALT 57 H (4-34) U/L Alkaline Phosphatase 136 H (38-126) U/L Lactate Dehydrogenase (313-618) U/L C-Reactive Protein 608.0 H (<10.0) mg/L Total Protein 6.0 L (6.3-8.2) g/dL Albumin 3.1 L (3.5-5.0) g/dL 04/17/20 04/17/20 04/17/20 Range/Units 12:10 13:20 16:03 WBC (3.8-10.6) k/uL RBC (3.80-5.40) m/uL Neutrophils # (1.3-7.7) k/uL Neutrophils # (Manual) (1.3-7.7) k/uL Lymphocytes # (Manual) (1.0-4.8) k/uL Metamyelocytes # (Man) (0) k/uL Myelocytes # (Manual) (0) k/uL D-Dimer (<0.60) mg/L FEU ABG pH 7.34 L (7.35-7.45) ABG pCO2 33 L (35-45) mmHg ABG pO2 77 L (83-108) mmHg ABG HCO3 18 L (21-25) mmol/L Sodium (137-145) mmol/L Carbon Dioxide (22-30) mmol/L BUN (7-17) mg/dL Creatinine (0.52-1.04) mg/dL Glucose (74-99) mg/dL POC Glucose (mg/dL) 110 H (75-99) mg/dL Calcium (8.4-10.2) mg/dL AST (14-36) U/L ALT (4-34) U/L Alkaline Phosphatase (38-126) U/L Lactate Dehydrogenase 1169 H (313-618) U/L C-Reactive Protein (<10.0) mg/L Total Protein (6.3-8.2) g/dL Albumin (3.5-5.0) g/dL 04/18/20 04/18/20 Range/Units 03:54 03:54 WBC 22.1 H (3.8-10.6) k/uL RBC 3.79 L (3.80-5.40) m/uL Neutrophils # 20.6 H (1.3-7.7) k/uL Neutrophils # (Manual) (1.3-7.7) k/uL Lymphocytes # (Manual) (1.0-4.8) k/uL Metamyelocytes # (Man) (0) k/uL Myelocytes # (Manual) (0) k/uL D-Dimer (<0.60) mg/L FEU ABG pH (7.35-7.45) ABG pCO2 (35-45) mmHg ABG pO2 (83-108) mmHg ABG HCO3 (21-25) mmol/L Sodium 136 L (137-145) mmol/L Carbon Dioxide 18 L (22-30) mmol/L BUN 33 H (7-17) mg/dL Creatinine (0.52-1.04) mg/dL Glucose 164 H (74-99) mg/dL POC Glucose (mg/dL) (75-99) mg/dL Calcium 7.5 L (8.4-10.2) mg/dL AST 123 H (14-36) U/L ALT 55 H (4-34) U/L Alkaline Phosphatase (38-126) U/L Lactate Dehydrogenase (313-618) U/L C-Reactive Protein (<10.0) mg/L Total Protein 5.1 L (6.3-8.2) g/dL Albumin 2.6 L (3.5-5.0) g/dL Microbiology - Last 24 Hours (Table) 04/17/20 19:00 Sputum Culture - Preliminary Sputum 04/17/20 14:46 Urine Culture - Preliminary Urine,Voided Assessment and Plan Plan: Assessment: Extensive bilateral, right greater than left, pneumonia, thought to be community acquired. COVID 19 PCR was negative 2, COVID 19 is thought to be less likely at this time to be the cause of pneumonia Acute hypoxemic respiratory failure secondary to extensive consolidative pneumonia bilaterally. History of asthma. History of hypertension. History of hyperlipidemia. History of chronic tobacco use with nicotine addiction, having smoked for 32 years, rule out COPD. Mild metabolic acidosis. Rule out acute kidney injury. History of palpitations. Elevated liver enzymes possibly related to Legionella pneumonia Plan: Continue current medical treatment, will give the patient and break off the BiPAP and place her on high flow oxygen airflow per [employer], awaiting results of the women's sputum cultures, Legionella urine antigen, mycoplasma pneumonia titers, continue steroids, breathing treatments, COVID 19 PCR came back nega tive, and COVID 19 infection is thought to be unlikely at this time. Continue GI and DVT prophylaxis, continue IV fluids, renal profile and liver enzymes have improved on today's labs. We'll continue to closely follow the patient in the intensive care unit. I performed a history & physical examination of the patient and discussed their management with my nurse practitioner, Damaris Sheldon. I reviewed the nurse practitioner's note and agree with the documented findings and plan of care. Lung sounds are positive for diminished breath sounds The findings and the impression was discussed with the patient. I attest to the documentation by the nurse practitioner. Time with Patient: Greater than 30
--- NOTE | 2020-04-18 12:13 | P.PN ---
Subjective 44-year-old the pleasant female came in with compensative for shortness of breath. General his body aches and fever chills patient symptoms has been going on for about a week patient recently returned from [place] from [place] patient is a unaware of any exposure to sick people although patient was exposed to many people when she visited a [place]. Patient had a chest x-ray and a computed tomography scan of the chest which showed extensive consolidation of the right lung and some consolidation and infiltrate consistent with "on the left side. Covid 19 PCR is still pending. Patient is presently on BiPAP patient is being admitted to intensive care unit 04/18/2020 Patient is negative for Covid. Patient appears to have come in today quite pneumonia extensive pneumonia on the right side. Patient Covid 19 PCR was negative. Patient is presently on Airvo, can use to have fevers of 101.5 patient is presently on Rocephin and azithromycin. Constitutional: Denied any fatigue denied any fever. Cardio vascular: denied any chest pain, palpitations Gastrointestinal denied any nausea vomiting Pulmonary: Not short of breath on aivo Neurologic denied any new focal deficits All inpatient medications were reviewed and appropriate changes in these medications as dictated in the interval history and assessment and plan. Objective - Vital Signs Vital signs: Vital Signs Temp 98.9 F 04/18/20 09:00 Pulse 128 H 04/18/20 10:00 Resp 34 H 04/18/20 10:00 BP 127/77 04/18/20 10:00 Pulse Ox 90 L 04/18/20 10:00 Intake & Output 04/17/20 04/18/20 04/18/20 18:59 06:59 18:59 Intake Total 1190 330 Output Total 1900 1350 350 Balance -1900 -160 -20 Weight 90.718 kg 92.6 kg Intake: IV 1190 330 Potassium Chloride 10 meq 200 In Water For Injection 1 100ml.bag @ 100 mls/hr IVPB Q1H [facility] Rx#: [id number] Sodium Chloride 0.9% 1, 990 330 000 ml @ 110 mls/hr IV . Q9H6M [facility] Rx#:[id number] Output: Urine 1900 1350 350 Other: Voiding Method Bedside Commode Indwelling Catheter Indwelling Catheter - Exam PHYSICAL EXAMINATION: GENERAL: The patient is alert and oriented x3, patient is on Airvo. Well developed, well nourished. HEENT: Pupils are round and equally reacting to light. EOMI. No scleral icterus. No conjunctival pallor. Normocephalic, atraumatic. No pharyngeal erythema. No thyromegaly. CARDIOVASCULAR: S1 and S2 present. No murmurs, rubs, or gallops. PULMONARY: Good air entry into bilateral lung morales crackles on entire right posterior lung morales. ABDOMEN: Soft, nontender, nondistended, normoactive bowel sounds. No palpable organomegaly. MUSCULOSKELETAL: No joint swelling or deformity. EXTREMITIES: No cyanosis, clubbing, or pedal edema. NEUROLOGICAL: Gross neurological examination did not reveal any focal deficits. SKIN: No rashes. - Labs CBC & Chem 7: 04/18/20 03:54 04/18/20 03:54 Labs: Abnormal Lab Results - Last 24 Hours (Table) 04/17/20 04/17/20 04/17/20 Range/Units 11:02 11:33 12:10 WBC (3.8-10.6) k/uL RBC (3.80-5.40) m/uL Neutrophils # (1.3-7.7) k/uL D-Dimer 5.24 H (<0.60) mg/L FEU ABG pH 7.34 L (7.35-7.45) ABG pCO2 33 L (35-45) mmHg ABG pO2 77 L (83-108) mmHg ABG HCO3 18 L (21-25) mmol/L Sodium 131 L (137-145) mmol/L Carbon Dioxide 16 L (22-30) mmol/L BUN 42 H (7-17) mg/dL Creatinine 1.65 H (0.52-1.04) mg/dL Glucose (74-99) mg/dL POC Glucose (mg/dL) (75-99) mg/dL Calcium 8.1 L (8.4-10.2) mg/dL Ferritin (10.0-291.0) ng/mL AST 150 H (14-36) U/L ALT 57 H (4-34) U/L Alkaline Phosphatase 136 H (38-126) U/L Lactate Dehydrogenase (313-618) U/L C-Reactive Protein 608.0 H (<10.0) mg/L Total Protein 6.0 L (6.3-8.2) g/dL Albumin 3.1 L (3.5-5.0) g/dL 04/17/20 04/17/20 04/18/20 Range/Units 13:20 16:03 03:54 WBC 22.1 H (3.8-10.6) k/uL RBC 3.79 L (3.80-5.40) m/uL Neutrophils # 20.6 H (1.3-7.7) k/uL D-Dimer (<0.60) mg/L FEU ABG pH (7.35-7.45) ABG pCO2 (35-45) mmHg ABG pO2 (83-108) mmHg ABG HCO3 (21-25) mmol/L Sodium (137-145) mmol/L Carbon Dioxide (22-30) mmol/L BUN (7-17) mg/dL Creatinine (0.52-1.04) mg/dL Glucose (74-99) mg/dL POC Glucose (mg/dL) 110 H (75-99) mg/dL Calcium (8.4-10.2) mg/dL Ferritin 1720.2 H (10.0-291.0) ng/mL AST (14-36) U/L ALT (4-34) U/L Alkaline Phosphatase (38-126) U/L Lactate Dehydrogenase 1169 H (313-618) U/L C-Reactive Protein (<10.0) mg/L Total Protein (6.3-8.2) g/dL Albumin (3.5-5.0) g/dL 04/18/20 Range/Units 03:54 WBC (3.8-10.6) k/uL RBC (3.80-5.40) m/uL Neutrophils # (1.3-7.7) k/uL D-Dimer (<0.60) mg/L FEU ABG pH (7.35-7.45) ABG pCO2 (35-45) mmHg ABG pO2 (83-108) mmHg ABG HCO3 (21-25) mmol/L Sodium 136 L (137-145) mmol/L Carbon Dioxide 18 L (22-30) mmol/L BUN 33 H (7-17) mg/dL Creatinine (0.52-1.04) mg/dL Glucose 164 H (74-99) mg/dL POC Glucose (mg/dL) (75-99) mg/dL Calcium 7.5 L (8.4-10.2) mg/dL Ferritin (10.0-291.0) ng/mL AST 123 H (14-36) U/L ALT 55 H (4-34) U/L Alkaline Phosphatase (38-126) U/L Lactate Dehydrogenase (313-618) U/L C-Reactive Protein (<10.0) mg/L Total Protein 5.1 L (6.3-8.2) g/dL Albumin 2.6 L (3.5-5.0) g/dL Microbiology - Last 24 Hours (Table) 04/17/20 19:00 Gram Stain - Final Sputum Sputum Culture - Final 04/17/20 14:46 Urine Culture - Preliminary Urine,Voided Assessment and Plan Plan: -Acute hypoxic respiratory failure: Secondary to pneumonia come in today quite extensive consolidation of right lung, patient will be continued on present antibiotics. Patient is negative for Covid 19 and has pneumonia on the left side as well -Sepsis secondary to community-acquired pneumonia -Leukocytosis secondary to severe sepsis next and-hypertension hold off antiemesis medications with concerns of hypotension secondary to sepsis --Hypertension -Hyperlipidemia -Tachycardia secondary to severe sepsis. Continue with IV fluids
[2020-04-18] MEDS: AZITHROMYCIN 500 MG in SODIUM CHLORIDE 0.9% 250 ML IVPB SCH (14:24)
[2020-04-18] MEDS: MELATONIN 5 MG TABLET PO SCH (20:49)
[2020-04-18] MEDS: MONTELUKAST 10 MG TAB PO SCH (20:49)
[2020-04-18] MEDS: ATORVASTATIN 10 MG TAB PO SCH (20:49)
[2020-04-19] MEDS: SODIUM CHLORIDE 0.9% 1,000 ML IV SCH ×3 (02:30→17:18)
[2020-04-19 04:06] LABS: HCT 36.9 % (34.0-46.0); MCH 31.1 pg (25.0-35.0); MCHC 32.5 g/dL (31.0-37.0); MCV 95.8 fL (80.0-100.0); Mean Platelet Volume 9.9; Platelet Count 194 k/uL (150-450); RBC 3.85 m/uL (3.80-5.40); RDW 14.5 % (11.5-15.5)
[2020-04-19 04:18] LABS: ALT 47 U/L (4-34); AST 100 U/L (14-36); African American GFR (CKD) >90 (>60 ml/min/1.73 sqM); Albumin 2.8 g/dL (3.5-5.0); Alkaline Phosphatase 148 U/L (38-126); Anion Gap 13 mmol/L; Blood Urea Nitrogen 25 mg/dL (7-17); Calcium 7.8 mg/dL (8.4-10.2); Carbon Dioxide 20 mmol/L (22-30); Chloride 108 mmol/L (98-107); Glucose 151 mg/dL (74-99); Non-African American GFR(CKD) 85 (>60 ml/min/1.73 sqM); Potassium 4.1 mmol/L (3.5-5.1); Sodium 141 mmol/L (137-145); Total Bilirubin 0.4 mg/dL (0.2-1.3); Total Protein 5.6 g/dL (6.3-8.2)
[2020-04-19 04:27] LABS: Band Neutrophils % 11 %; Lymphocytes # (M) 1.02 k/uL (1.0-4.8); Metamyelocytes # (M) 0.34 k/uL (0); Metamyelocytes % 1 %; Monocytes # (M) 0.68 k/uL (0-1.0); Neutrophils % (M) 84 %; Nucleated Red Blood Cells 0 /100 WBC (0-0); Total Cells Counted 200
[2020-04-19 04:28] LABS: Toxic Granulation Present
[2020-04-19 05:23] LABS: Mycoplasma IgG Antibody (EIA) 1.55 INDEX (<=0.90); Mycoplasma IgM Antibody 0.28 INDEX (<=0.90)
--- NOTE | 2020-04-19 07:14 | XR ---
EXAMINATION TYPE: XR chest 1V portable DATE OF EXAM: 04/19/2020 COMPARISON: 04/18/2020 HISTORY: Pneumonia TECHNIQUE: Single frontal view of the chest is obtained. FINDINGS: Diffuse airspace disease persists without significant interval change. The cardiac silhouette size is within normal limits. The osseous structures are intact. IMPRESSION: 1. Diffuse airspace disease persists without significant interval change.
[2020-04-19 08:10] LABS: ABG Base Excess -4.5 mmol/L; ABG HCO3 24 mmol/L (21-25); ABG Oxygen Saturation 87.2 % (94-97); ABG PCO2 65 mmHg (35-45); ABG PO2 65 mmHg (83-108); ABG TCO2 26 mmol/L (19-24); Allen Test Performed? Yes
[2020-04-19] MEDS ORDERED: propofoL 100 ML IV ONE (08:18)
[2020-04-19] MEDS ORDERED: SUCCINYLCHOLINE CHLORIDE VIAL 200 MG/10 ML VIAL IV ONE (08:30)
[2020-04-19] MEDS ORDERED: PROPOFOL 10 MG/ML 20 ML VIAL IV ONE (08:30)
[2020-04-19] MEDS ORDERED: CISATRACURIUM 2 MG/ML 5 ML VIAL IV ONE (08:56)
[2020-04-19 09:01] LABS: ABG PH 7.17 (7.35-7.45)
[2020-04-19 09:56] LABS: ABG HCO3 24 mmol/L (21-25); ABG TCO2 26 mmol/L (19-24); Allen Test Performed? Yes
[2020-04-19 10:00] LABS: ABG PH 7.14 (7.35-7.45)
[2020-04-19 10:01] LABS: ABG PCO2 71 mmHg (35-45); ABG PO2 56 mmHg (83-108)
[2020-04-19] MEDS: methylPREDNISolone SOD SUCCI 40 MG/ML 1 ML VIAL IV SCH ×3 (10:22→23:52)
[2020-04-19] MEDS: ENOXAPARIN 40 MG/0.4 ML SYRINGE SQ SCH (10:22)
[2020-04-19] MEDS: CHLORHEXIDINE GLUCONATE 15 ML CUP MUCOUS MEM SCH ×2 (10:22→22:33)
[2020-04-19] MEDS: amLODIPine 5 MG TAB PO SCH (10:23)
[2020-04-19] MEDS: CHOLECALCIFEROL 25 MCG (1000 IU) TABLET PO SCH (10:23)
[2020-04-19] MEDS: ASCORBIC ACID 500 MG TAB PO SCH ×2 (10:23→22:33)
[2020-04-19] MEDS: ZINC SULFATE 220 MG CAP PO SCH (10:23)
--- NOTE | 2020-04-19 10:39 | XR ---
EXAMINATION TYPE: XR chest 1V portable DATE OF EXAM: 04/19/2020 COMPARISON: Earlier in the day HISTORY: Line placement TECHNIQUE: Single frontal view of the chest is obtained. FINDINGS: Endotracheal tube is approximately 4.7 cm from the corrine. Left IJ central venous line is within the SVC. No evidence for pneumothorax. NG tube is seen coursing into the stomach. Diffuse airspace infiltrates right greater than left persist without significant change. Cardiomediastinal silhouette is unremarkable. IMPRESSION: 1. Indwelling tubes and catheters as noted. 2. Diffuse bilateral pneumonia is stable.
--- NOTE | 2020-04-19 10:42 | P.PN ---
Subjective Progress Note Date: 04/19/20 Principal diagnosis: Pneumonia. This is a 44-year-old female that we were asked to see in consultation. The patient has a history of chronic bronchial asthma, hypertension, hyperlipidemia, and palpitations. The patient sees Dr. Jenkins as a primary. The patient has been smoking for about 32 years, and CHF 14. Anyway, the patient went down to [place] recently on vacation. She was irritable right around mid March. She was healthy down there without any major issues. She went down there with her and I note a couple. Nobody was sick or subsequently has gotten sick. In addition, no family members have been held. The patient states that last , she started getting symptoms. This included weakness and fatigue, shortness of breath, cough, chest tightness, and generally just not feeling well. The shortness of breath got so bad, that she decided to come into the emergency room to be evaluated. There she was seen by Dr. Forbes. The patient initially came in with a heart rate of 135, and saturations on room air was 76%. The patient was placed on oxygen therapy there, had a chest x-ray, I CAT scan, blood work, and was given antibiotics. He call me on the phone because he thought the patient would be best served in the intensive care unit and I agreed. The patient's chest x-ray shows near complete opacification of the right hemithorax, as well as some infiltrate in the left midlung and left lower lobe. The computed tomography scan is very impressive as well. Her rapid antigen test for coronaavirus was negative. A PCR test was ordered. The CAT scan doesn't really look like COVID 19 but rather looks more consolidative like somebody with bacterial pneumonia. The patient was placed on Rocephin, and we added azithromycin. Currently, the patient's in the intensive care unit on BiPAP with settings of IPAP 12, EPAP 6, and 60%. The patient also has a basic IV. We will make sure that she has appropriate orders including albuterol inhaler, and Symbicort 160/4.5, 2 puffs twice a day. If her caronavirus PCR comes back negative, we'll switch her to Pulmicort 1 mg along with formoterol, 20 g, twice a day. We'll also place her on some corticosteroids. We'll add vitamin C, vitamin D3, and zinc. We'll also make sure that she has proper GI and DVT prophylaxis. Finally, we'll make sure that she has blood urine and sputum cultures, and, we will go ahead and order inflammatory markers, as well as mycoplasma IgM antibodies, and a urinary Legionella antigen. On 04/18/2020 patient seen in follow-up in intensive care unit, she has remained on BiPAP support most of the night, currently with pressures of 12 and 6 and FiO2 of 60%. Her pulse ox is 88-89%, patient is tachycardic, with a rate of 117, in sinus mechanism, she was febrile last night, and the T-max in the last 24 hours was 101.5F. She is on antibiotics in the form of azithromycin and Rocephin. Repeat COVID PCR was negative. Repeat chest x-ray today showed multiple focal right lung consolidations in peripheral left lingular consolidation consistent with bilateral multifocal pneumonia. Today's labs have been reviewed, showing leukocytosis, neutrophilic, with a white blood cell count of 22.1, sodium is 136, potassium 3.6, CO2 was 18, BUN is 33 and creatinine is 1.04. Renal profile has improved since yesterday. Blood and sputum cultures have been sent, and are pending at this time. She is on GI and DVT prophylaxis, her maintenance IV fluids are infusing at a rate of 110/h, she is on inhaled bronchodilators, and IV steroids 40 mg every 8 hours. Patient is short of breath at rest, but no acute distress, no chest pain or hemoptysis. No altered mentation, she is answering questions appropriately. Lung sounds reveal diminished breath sounds. Progress note dated 04/19/2020. 44-year-old female seen in consultation 2 days ago. The patient was admitted with a diagnosis of bilateral pneumonia, right greater than left. The patient was on BiPAP yesterday. Her BiPAP settings were IPAP 12, EPAP 6, and 60%. Somewhere last night, early in the morning, her saturations and respiratory status worsened, and she was increased up to 100% on the BiPAP. I was not informed. This morning, she was found to be in significant distress. We had anesthesia intubate the patient after a blood gas was obtained. Next, we put in a right radial arterial line, and a left internal jugular triple-lumen catheter. She tolerated both procedures well. Her current vent settings are volume assist control, rate is 30, tidal volume 350, FiO2 100%, and PEEP of 15. A repeat blood gas will be done. One of the ports of the central line will be used for a CVP monitor. The patient's on Rocephin and azithromycin. Also, her urinary antigen for Legionella and quinolones are the drugs of choice. She has been on azithromycin and ceftriaxone from the beginning. Today's white blood count is 34,000, hemoglobin 12, hematocrit 36.9, and platelet count 194,000. Her blood gases, before intubation, had a PaO2 of 65, a pCO2 of 65, pH 7.17. After intubation, on the same settings as before, but only a PEEP of 8, her pO2 was 56, PaCO2 of 71, pH was 7.14. After these second blood gases, the PEEP was increased to 15. She is also heavily sedated on propofol, and we did give her some Nimbex. She may need to be paralyzed over the next few days. Currently, she's getting propofol at 75 mcg/kg/m. We gave her 15 mg of Nimbex for the central line and art line. Sodium is 141, potassium 4.1, chlorides 108, CO2 20, anion gap is 13, BUN is 25, and creatinine 0.83. Cultures, blood urine and sputum, thus far all negative for pending. Mycoplasma IgM antibodies are negative. Chest x-ray shows worsening bilateral infiltrates. Objective - Vital Signs Vital signs: Vital Signs Temp 98.7 F 04/19/20 08:00 Pulse 112 H 04/19/20 10:00 Resp 30 H 04/19/20 10:00 BP 115/74 04/19/20 10:00 Pulse Ox 80 L 04/19/20 10:00 Intake & Output 04/18/20 04/19/20 04/19/20 18:59 06:59 18:59 Intake Total 1380 1210 476.426 Output Total 1200 1125 485 Balance 180 85 -8.574 Weight 93.4 kg Intake: IV 1180 1210 440 Sodium Chloride 0.9% 1, 1180 1210 440 000 ml @ 110 mls/hr IV . Q9H6M [facility] Rx#:[id number] Intake, IV Titration 36.426 Amount propofoL 500 mg In Empty 36.426 Bag 1 bag @ Titrate IV . Q0M [facility] Rx#:[id number] Oral 200 Output: Urine 1200 1125 485 Other: Voiding Method Indwelling Catheter Indwelling Catheter ABP, PAP, CO, CI - Last Documented Arterial Blood Pressure 116/57 - Exam GENERAL EXAM: Currently sedated and paralyzed, with an orally placed endotrac heal tube and NG tube. HEAD: Normocephalic/atraumatic. EYES: Normal reaction of pupils, equal size. Conjunctiva pink, sclera white. NOSE: Clear with pink turbinates. THROAT: An orally placed endotracheal tube has been inserted. NECK: No masses, no JVD, no thyroid enlargement, no adenopathy. CHEST: No chest wall deformity. Symmetrical expansion. LUNGS: Diffuse bilateral coarse rhonchi are noted. Rest sounds equal bilaterally. No crackles or wheezes. CVS: Regular rate and rhythm, normal S1 and S2, no gallops, no murmurs, no rubs. Heart rate is 112 bpm. ABDOMEN: Soft, nontender. No hepatosplenomegaly, no bowel sounds, no guarding or rigidity. EXTREMITIES: No clubbing, no edema, no cyanosis, 2+ pulses and upper and lower extremities. MUSCULOSKELETAL: Muscle strength and tone normal. SPINE: No scoliosis or deformity SKIN: No rashes CENTRAL NERVOUS SYSTEM: Sedated and paralyzed. PSYCHIATRIC: Could not be evaluated appropriately. - Labs CBC & Chem 7: 04/19/20 03:13 04/19/20 03:13 Labs: Abnormal Lab Results - Last 24 Hours (Table) 04/17/20 04/17/20 04/17/20 Range/Units 11:33 11:33 14:46 WBC (3.8-10.6) k/uL Neutrophils # (Manual) (1.3-7.7) k/uL Metamyelocytes # (Man) (0) k/uL ABG pH (7.35-7.45) ABG pCO2 (35-45) mmHg ABG pO2 (83-108) mmHg ABG Total CO2 (19-24) mmol/L ABG O2 Saturation (94-97) % Chloride (98-107) mmol/L Carbon Dioxide (22-30) mmol/L BUN (7-17) mg/dL Glucose (74-99) mg/dL Calcium (8.4-10.2) mg/dL AST (14-36) U/L ALT (4-34) U/L Alkaline Phosphatase (38-126) U/L Total Protein (6.3-8.2) g/dL Albumin (3.5-5.0) g/dL Procalcitonin 7.28 H (0.02-0.09) ng/mL Urine Legionella Ag Positive A (Negative) Mycoplasma pneumon IgG 1.55 H (<=0.90) INDEX 04/19/20 04/19/20 04/19/20 Range/Units 03:13 03:13 08:08 WBC 34.0 H (3.8-10.6) k/uL Neutrophils # (Manual) 32.30 H (1.3-7.7) k/uL Metamyelocytes # (Man) 0.34 H (0) k/uL ABG pH 7.17 L* (7.35-7.45) ABG pCO2 65 H (35-45) mmHg ABG pO2 65 L (83-108) mmHg ABG Total CO2 26 H (19-24) mmol/L ABG O2 Saturation 87.2 L (94-97) % Chloride 108 H (98-107) mmol/L Carbon Dioxide 20 L (22-30) mmol/L BUN 25 H (7-17) mg/dL Glucose 151 H (74-99) mg/dL Calcium 7.8 L (8.4-10.2) mg/dL AST 100 H (14-36) U/L ALT 47 H (4-34) U/L Alkaline Phosphatase 148 H (38-126) U/L Total Protein 5.6 L (6.3-8.2) g/dL Albumin 2.8 L (3.5-5.0) g/dL Procalcitonin (0.02-0.09) ng/mL Urine Legionella Ag (Negative) Mycoplasma pneumon IgG (<=0.90) INDEX 04/19/20 Range/Units 09:54 WBC (3.8-10.6) k/uL Neutrophils # (Manual) (1.3-7.7) k/uL Metamyelocytes # (Man) (0) k/uL ABG pH 7.14 L* (7.35-7.45) ABG pCO2 71 H* (35-45) mmHg ABG pO2 56 L* (83-108) mmHg ABG Total CO2 26 H (19-24) mmol/L ABG O2 Saturation 80.0 L (94-97) % Chloride (98-107) mmol/L Carbon Dioxide (22-30) mmol/L BUN (7-17) mg/dL Glucose (74-99) mg/dL Calcium (8.4-10.2) mg/dL AST (14-36) U/L ALT (4-34) U/L Alkaline Phosphatase (38-126) U/L Total Protein (6.3-8.2) g/dL Albumin (3.5-5.0) g/dL Procalcitonin (0.02-0.09) ng/mL Urine Legionella Ag (Negative) Mycoplasma pneumon IgG (<=0.90) INDEX Microbiology - Last 24 Hours (Table) 04/17/20 14:46 Urine Culture - Final Urine,Voided 04/17/20 10:58 Blood Culture - Preliminary Blood No Growth after 24 hours 04/17/20 11:02 Blood Culture - Preliminary Blood No Growth after 24 hours 04/17/20 19:00 Gram Stain - Final Sputum Sputum Culture - Final Assessment and Plan Assessment: Acute hypoxemic respiratory failure, with intubation and mechanical ventilation on 04/19/2020. Extensive bilateral, right greater than left, pneumonia, thought to be community acquired. Legionnaires' disease. Acute hypoxemic respiratory failure secondary to extensive consolidative pneumonia bilaterally. History of asthma. History of hypertension. History of hyperlipidemia. History of chronic tobacco use with nicotine addiction, having smoked for 32 years, rule out COPD. Mild metabolic acidosis. Rule out acute kidney injury. History of palpitations. Plan: Plan dated 04/19/2020. The patient tested positive for Legionnaires disease. Her urine Legionella antigen test was positive. She has been on azithromycin, and ceftriaxone from the very beginning. Unfortunately, today, she developed acute hypoxemic respiratory failure, which required intubation and mechanical ventilation. The patient's currently sedated and may need paralysis. A right radial arterial line was placed as well as a left internal jugular triple-lumen catheter. Her overall prognosis remains very guarded at this point. Medications are reviewed. Adjustments will be made. Additional recommendations and suggestions are forthcoming. Her coronavirus testing was negative 2. Currently, she is on the volume assist control mode, rate is 30, tidal volume is 350, FiO2 100%, and PEEP is 15. Repeat blood gases pending. We will continue to follow. Additional recommendations are pending Time with Patient: Greater than 30
[2020-04-19] MEDS ORDERED: IPRATROPIUM-ALBUTEROL 3 ML NEB INHALATION PRN (10:46)
--- NOTE | 2020-04-19 10:48 | PCN ---
PROCEDURE NOTE PULMONARY/CRITICAL CARE PROCEDURE: PROCEDURE: Right radial arterial line. PREOPERATIVE DIAGNOSIS: Frequent blood draws and blood gas monitoring. POSTOPERATIVE DIAGNOSIS: Frequent blood draws and blood gas monitoring. OPERATORS: Dr. Zarco and Dr. Hull. ARTERIAL LINE PLACEMENT: Indications: Hemodynamic monitoring. A time-out was completed verifying correct patient, procedure, site, positioning, and implant(s) or special equipment if applicable. Ole's test was performed to ensure adequate perfusion. The patient's right wrist was prepped and draped in sterile fashion. 1% Lidocaine was used to anesthetize the area. An 18G Arrow arterial line was introduced into the right radial artery. The catheter was threaded over the guide wire and the needle was removed with appropriate pulsatile blood return. Blood loss was minimal. The catheter was then sutured in place to the skin and a sterile dressing applied. Perfusion to the extremity distal to the point of catheter insertion was checked and found to be adequate. The patient tolerated the procedure well and there were no complications. There was informed consent and universal timeout. The right radial art line was done. The patient tolerated the procedure well. There was good waveform and blood pressure reading. The catheter was sutured in place. There was no immediate complication. A sterile dressing was applied by the nurse. We used a right radial arterial site. MMODL / IJN: [id number] /
--- NOTE | 2020-04-19 10:48 | PCN ---
PROCEDURE NOTE PULMONARY/CRITICAL CARE PROCEDURE: PROCEDURE: Left internal jugular triple lumen catheter. OPERATORS: Dr. Zarco and Dr. Hull. TRIPLE LUMEN CATHETER PLACEMENT: Indication: Hemodynamic monitoring/Intravenous access. A time-out was completed verifying correct patient, procedure, site, positioning, and implant(s) or special equipment if applicable. The patient was placed in a dependent position appropriate for triple lumen catheter placement based on the vein to be cannulated. The patient's left neck was prepped and draped in sterile fashion. 1% Lidocaine was used to anesthetize the surrounding skin area. A triple lumen 9F Cordis catheter was introduced into the left internal jugular vein using Seldinger technique. The catheter was threaded smoothly over the guide wire and appropriate blood return was obtained. Each lumen of the catheter was evacuated of air and flushed with sterile saline. The catheter was then sutured in place to the skin and a sterile dressing applied. Perfusion to the extremity distal to the point of catheter insertion was checked and found to be adequate. There was no immediate complication. We used a posterior approach on the left internal jugular vein. There was good blood return from all 3 ports. The patient tolerated the procedure well. The catheter was sutured in place. Sterile dressing was applied by the nurse. The tip of the catheter was seen in the right atrium. There was no immediate complication. Sterile dressing was applied by the nurse. The chest x-ray was ordered. MMODL / IJN: [id number] /
[2020-04-19 11:20] LABS: Glucose,Whole Blood 173 mg/dL (75-99)
[2020-04-19 11:21] LABS: ABG Base Excess -4.5 mmol/L; ABG HCO3 23 mmol/L (21-25); ABG Oxygen Saturation 89.5 % (94-97); ABG PCO2 55 mmHg (35-45); ABG PH 7.23 (7.35-7.45); ABG PO2 64 mmHg (83-108); ABG TCO2 25 mmol/L (19-24); Allen Test Performed? Yes
[2020-04-19] MEDS: SYMBICORT 160-4.5 MCG INHALER INHALATION SCH (11:29)
[2020-04-19] MEDS: IPRATROPIUM-ALBUTEROL 3 ML NEB INHALATION SCH ×3 (11:30→22:01)
[2020-04-19] MEDS: CISATRACURIUM 200 MG in SODIUM CHLORIDE 0.9% 180 ML IV SCH (12:06)
[2020-04-19] MEDS: ARTIFICIAL TEARS-HYPROMELLOSE DROPS 15 ML BTL BOTH EYES SCH ×4 (12:58→23:51)
[2020-04-19 13:03] LABS: Glucose,Whole Blood 156 mg/dL (75-99)
[2020-04-19] MEDS: INSULIN ASPART (NovoLOG) 100 UNIT/ML VIAL SQ SCH ×3 (13:12→23:52)
[2020-04-19 14:16] LABS: Magnesium 2.4 mg/dL (1.6-2.3)
[2020-04-19 15:24] LABS: C Reactive Protein 346.3 mg/L (<10.0)
--- NOTE | 2020-04-19 16:25 | P.PN ---
Subjective 44-year-old the pleasant female came in with compensative for shortness of breath. General his body aches and fever chills patient symptoms has been going on for about a week patient recently returned from [place] from [place] patient is a unaware of any exposure to sick people although patient was exposed to many people when she visited a [place]. Patient had a chest x-ray and a computed tomography scan of the chest which showed extensive consolidation of the right lung and some consolidation and infiltrate consistent with "on the left side. Covid 19 PCR is still pending. Patient is presently on BiPAP patient is being admitted to intensive care unit 04/18/2020 Patient is negative for Covid. Patient appears to have come in today quite pneumonia extensive pneumonia on the right side. Patient Covid 19 PCR was negative. Patient is presently on Airvo, can use to have fevers of 101.5 patient is presently on Rocephin and azithromycin. 04/19/2020 Patient was pretty status worsened was intubated patient is a presently on 100% FiO2 patient had hypoxic as well as hypercapnic respiratory failure with the extremely low pH. Patient is on propofol very high-dose at this time. Patient remains on ceftriaxone and azithromycin and has central venous line right radial arterial line Review of systems: Unable to obtain due to her clinical condition patient is intubated All inpatient medications were reviewed and appropriate changes in these medications as dictated in the interval history and assessment and plan. Objective - Vital Signs Vital signs: Vital Signs Temp 98.7 F 04/19/20 12:00 Pulse 100 04/19/20 15:42 Resp 34 H 04/19/20 15:00 BP 87/56 04/19/20 15:00 Pulse Ox 95 04/19/20 15:00 Intake & Output 04/18/20 04/19/20 04/19/20 18:59 06:59 18:59 Intake Total 1380 1210 1232.665 Output Total 1200 1125 780 Balance 180 85 452.665 Weight 93.4 kg 93.4 kg Intake: IV 1180 1210 1040 Sodium Chloride 0.9% 1, 1180 1210 990 000 ml @ 110 mls/hr IV . Q9H6M [facility] Rx#:[id number] cefTRIAXone 2 gm In 50 Sodium Chloride 0.9% 50 ml @ 100 mls/hr IVPB Q24HR [facility] Rx#:[id number] Intake, IV Titration 172.665 Amount Cisatracurium 200 mg In 8.686 Sodium Chloride 0.9% 180 ml @ 2 MCG/KG/MIN 11.208 mls/hr IV .[id number] [facility] Rx #:[id number] propofoL 500 mg In Empty 163.979 Bag 1 bag @ Titrate IV . Q0M [facility] Rx#:[id number] Oral 200 Tube Feeding 20 Output: Urine 1200 1125 780 Other: Voiding Method Indwelling Catheter Indwelling Catheter Indwelling Catheter ABP, PAP, CO, CI - Last Documented Arterial Blood Pressure 83/48 - Exam PHYSICAL EXAMINATION: GENERAL: Intubated sedated HEENT: Pupils are round and equally reacting to light. EOMI. No scleral icterus. No conjunctival pallor. Normocephalic, atraumatic. No pharyngeal erythema. No thyromegaly. CARDIOVASCULAR: S1 and S2 present. No murmurs, rubs, or gallops. PULMONARY: Good air entry into bilateral lung morales crackles on entire right posterior lung morales. ABDOMEN: Soft, nontender, nondistended, normoactive bowel sounds. No palpable organomegaly. MUSCULOSKELETAL: No joint swelling or deformity. EXTREMITIES: No cyanosis, clubbing, or pedal edema. NEUROLOGICAL: Patient is sedated SKIN: No rashes. - Labs CBC & Chem 7: 04/19/20 03:13 04/19/20 03:13 Labs: Abnormal Lab Results - Last 24 Hours (Table) 04/17/20 04/17/20 04/17/20 Range/Units 11:33 11:33 14:46 WBC (3.8-10.6) k/uL Neutrophils # (Manual) (1.3-7.7) k/uL Metamyelocytes # (Man) (0) k/uL D-Dimer (<0.60) mg/L FEU ABG pH (7.35-7.45) ABG pCO2 (35-45) mmHg ABG pO2 (83-108) mmHg ABG Total CO2 (19-24) mmol/L ABG O2 Saturation (94-97) % Chloride (98-107) mmol/L Carbon Dioxide (22-30) mmol/L BUN (7-17) mg/dL Glucose (74-99) mg/dL POC Glucose (mg/dL) (75-99) mg/dL Calcium (8.4-10.2) mg/dL Magnesium (1.6-2.3) mg/dL AST (14-36) U/L ALT (4-34) U/L Alkaline Phosphatase (38-126) U/L Lactate Dehydrogenase (313-618) U/L C-Reactive Protein (<10.0) mg/L Total Protein (6.3-8.2) g/dL Albumin (3.5-5.0) g/dL Procalcitonin 7.28 H (0.02-0.09) ng/mL Urine Legionella Ag Positive A (Negative) Mycoplasma pneumon IgG 1.55 H (<=0.90) INDEX 04/19/20 04/19/20 04/19/20 Range/Units 03:13 03:13 08:08 WBC 34.0 H (3.8-10.6) k/uL Neutrophils # (Manual) 32.30 H (1.3-7.7) k/uL Metamyelocytes # (Man) 0.34 H (0) k/uL D-Dimer (<0.60) mg/L FEU ABG pH 7.17 L* (7.35-7.45) ABG pCO2 65 H (35-45) mmHg ABG pO2 65 L (83-108) mmHg ABG Total CO2 26 H (19-24) mmol/L ABG O2 Saturation 87.2 L (94-97) % Chloride 108 H (98-107) mmol/L Carbon Dioxide 20 L (22-30) mmol/L BUN 25 H (7-17) mg/dL Glucose 151 H (74-99) mg/dL POC Glucose (mg/dL) (75-99) mg/dL Calcium 7.8 L (8.4-10.2) mg/dL Magnesium (1.6-2.3) mg/dL AST 100 H (14-36) U/L ALT 47 H (4-34) U/L Alkaline Phosphatase 148 H (38-126) U/L Lactate Dehydrogenase (313-618) U/L C-Reactive Protein (<10.0) mg/L Total Protein 5.6 L (6.3-8.2) g/dL Albumin 2.8 L (3.5-5.0) g/dL Procalcitonin (0.02-0.09) ng/mL Urine Legionella Ag (Negative) Mycoplasma pneumon IgG (<=0.90) INDEX 04/19/20 04/19/20 04/19/20 Range/Units 09:54 11:19 11:19 WBC (3.8-10.6) k/uL Neutrophils # (Manual) (1.3-7.7) k/uL Metamyelocytes # (Man) (0) k/uL D-Dimer (<0.60) mg/L FEU ABG pH 7.14 L* 7.23 L (7.35-7.45) ABG pCO2 71 H* 55 H (35-45) mmHg ABG pO2 56 L* 64 L (83-108) mmHg ABG Total CO2 26 H 25 H (19-24) mmol/L ABG O2 Saturation 80.0 L 89.5 L (94-97) % Chloride (98-107) mmol/L Carbon Dioxide (22-30) mmol/L BUN (7-17) mg/dL Glucose (74-99) mg/dL POC Glucose (mg/dL) 173 H (75-99) mg/dL Calcium (8.4-10.2) mg/dL Magnesium (1.6-2.3) mg/dL AST (14-36) U/L ALT (4-34) U/L Alkaline Phosphatase (38-126) U/L Lactate Dehydrogenase (313-618) U/L C-Reactive Protein (<10.0) mg/L Total Protein (6.3-8.2) g/dL Albumin (3.5-5.0) g/dL Procalcitonin (0.02-0.09) ng/mL Urine Legionella Ag (Negative) Mycoplasma pneumon IgG (<=0.90) INDEX 04/19/20 04/19/20 04/19/20 Range/Units 13:01 13:10 13:10 WBC (3.8-10.6) k/uL Neutrophils # (Manual) (1.3-7.7) k/uL Metamyelocytes # (Man) (0) k/uL D-Dimer 2.99 H (<0.60) mg/L FEU ABG pH (7.35-7.45) ABG pCO2 (35-45) mmHg ABG pO2 (83-108) mmHg ABG Total CO2 (19-24) mmol/L ABG O2 Saturation (94-97) % Chloride (98-107) mmol/L Carbon Dioxide (22-30) mmol/L BUN (7-17) mg/dL Glucose (74-99) mg/dL POC Glucose (mg/dL) 156 H (75-99) mg/dL Calcium (8.4-10.2) mg/dL Magnesium 2.4 H (1.6-2.3) mg/dL AST (14-36) U/L ALT (4-34) U/L Alkaline Phosphatase (38-126) U/L Lactate Dehydrogenase 1908 H (313-618) U/L C-Reactive Protein 346.3 H (<10.0) mg/L Total Protein (6.3-8.2) g/dL Albumin (3.5-5.0) g/dL Procalcitonin (0.02-0.09) ng/mL Urine Legionella Ag (Negative) Mycoplasma pneumon IgG (<=0.90) INDEX Microbiology - Last 24 Hours (Table) 04/19/20 08:55 Sputum Culture - Preliminary Sputum 04/19/20 08:55 Legionella Culture - Preliminary Sputum 04/17/20 10:58 Blood Culture - Preliminary Blood No Growth after 48 hours 04/17/20 11:02 Blood Culture - Preliminary Blood No Growth after 48 hours 04/17/20 14:46 Urine Culture - Final Urine,Voided Assessment and Plan Plan: -Acute hypoxic respiratory failure: Secondary to pneumonia come in today quite extensive consolidation of right lung, patient will be continued on present antibiotics. Patient is negative for Covid 19 and has pneumonia on the left side as well. Patient is intubated now -Sepsis secondary to community-acquired pneumonia -Leukocytosis secondary to severe sepsis next and-hypertension hold off antiemesis medications with concerns of hypotension secondary to sepsis --Hypertension -Hyperlipidemia -Tachycardia secondary to severe sepsis. Continue with IV fluids
[2020-04-19] MEDS: AZITHROMYCIN 500 MG in SODIUM CHLORIDE 0.9% 250 ML IVPB SCH (16:28)
[2020-04-19 17:08] LABS: Glucose,Whole Blood 146 mg/dL (75-99)
[2020-04-19 17:10] LABS: ABG Base Excess -5.4 mmol/L; ABG HCO3 22 mmol/L (21-25); ABG Oxygen Saturation 98.9 % (94-97); ABG PCO2 53 mmHg (35-45); ABG PH 7.23 (7.35-7.45); ABG PO2 124 mmHg (83-108); ABG TCO2 24 mmol/L (19-24); Allen Test Performed? Yes
[2020-04-19] MEDS: BUDESONIDE 1 MG/2 ML NEBU INHALATION SCH (22:01)
[2020-04-19] MEDS: FORMOTEROL FUMARATE 20 MCG/2 ML NEBU INHALATION SCH (22:01)
[2020-04-19] MEDS: ATORVASTATIN 10 MG TAB PO SCH (22:33)
[2020-04-19] MEDS: MONTELUKAST 10 MG TAB PO SCH (22:34)
[2020-04-19 23:49] LABS: Glucose,Whole Blood 168 mg/dL (75-99)
[2020-04-20] MEDS: IPRATROPIUM-ALBUTEROL 3 ML NEB INHALATION SCH ×6 (00:19→20:39)
[2020-04-20 02:37] LABS: Ferritin 2931.2 ng/mL (10.0-291.0)
[2020-04-20] MEDS: SODIUM CHLORIDE 0.9% 1,000 ML IV SCH (03:44)
[2020-04-20] MEDS: ARTIFICIAL TEARS-HYPROMELLOSE DROPS 15 ML BTL BOTH EYES SCH ×6 (03:44→23:45)
[2020-04-20 03:58] LABS: HCT 33.4 % (34.0-46.0); MCH 31.6 pg (25.0-35.0); MCV 95.7 fL (80.0-100.0); Platelet Count 190 k/uL (150-450); RBC 3.49 m/uL (3.80-5.40); RDW 15.3 % (11.5-15.5); WBC 32.2 k/uL (3.8-10.6)
[2020-04-20 04:23] LABS: ALT 39 U/L (4-34); AST 78 U/L (14-36); African American GFR (CKD) >90 (>60 ml/min/1.73 sqM); Albumin 2.4 g/dL (3.5-5.0); Alkaline Phosphatase 137 U/L (38-126); Anion Gap 6 mmol/L; Blood Urea Nitrogen 25 mg/dL (7-17); Calcium 7.8 mg/dL (8.4-10.2); Carbon Dioxide 25 mmol/L (22-30); Chloride 115 mmol/L (98-107); Glucose 186 mg/dL (74-99); Non-African American GFR(CKD) >90 (>60 ml/min/1.73 sqM); Potassium 4.4 mmol/L (3.5-5.1); Sodium 146 mmol/L (137-145); Total Bilirubin 0.3 mg/dL (0.2-1.3); Total Protein 4.8 g/dL (6.3-8.2)
[2020-04-20 05:32] LABS: Band Neutrophils % 11 %; Lymphocytes # (M) 0.64 k/uL (1.0-4.8); Metamyelocytes # (M) 0.32 k/uL (0); Metamyelocytes % 1 %; Monocytes # (M) 0.64 k/uL (0-1.0); Myelocytes # (M) 0.32 k/uL (0); Myelocytes % 1 %; Neutrophils % (M) 85 %; Nucleated Red Blood Cells 0 /100 WBC (0-0); Total Cells Counted 200; Toxic Granulation Present
[2020-04-20 05:42] LABS: Glucose,Whole Blood 185 mg/dL (75-99)
[2020-04-20 05:43] LABS: ABG Base Excess -4.4 mmol/L; ABG HCO3 23 mmol/L (21-25); ABG Oxygen Saturation 99.1 % (94-97); ABG PCO2 53 mmHg (35-45); ABG PH 7.24 (7.35-7.45); ABG PO2 141 mmHg (83-108); ABG TCO2 25 mmol/L (19-24); Allen Test Performed? Yes
[2020-04-20] MEDS: INSULIN ASPART (NovoLOG) 100 UNIT/ML VIAL SQ SCH ×4 (05:45→23:44)
[2020-04-20] MEDS: CISATRACURIUM 200 MG in SODIUM CHLORIDE 0.9% 180 ML IV SCH ×2 (05:46→23:17)
--- NOTE | 2020-04-20 06:42 | XR ---
EXAMINATION TYPE: XR chest 1V portable DATE OF EXAM: 04/20/2020 CLINICAL HISTORY: Difficulty breathing progress study. TECHNIQUE: Single AP portable upright view of the chest is obtained. COMPARISON: Chest x-ray from one day earlier and older studies. FINDINGS: Stable endotracheal and orogastric tubes. Stable left internal jugular central venous cath eter. Multifocal increased opacities bilaterally remain present. Some improved aeration upper lungs i s thought product of change in technique from semiupright upright positioning. Most dense consolidati on right mid to lower lung remains present silhouetting the right hemidiaphragm. Cardiac silhouette s ize stable and within normal limits. Osseous structures are intact. IMPRESSION: Persistent bilateral multifocal multilobar infiltrates. No significant change from one da y earlier.
[2020-04-20] MEDS: amLODIPine 5 MG TAB PO SCH (08:34)
[2020-04-20] MEDS: CHLORHEXIDINE GLUCONATE 15 ML CUP MUCOUS MEM SCH ×2 (08:34→20:17)
[2020-04-20] MEDS: methylPREDNISolone SOD SUCCI 40 MG/ML 1 ML VIAL IV SCH ×3 (08:34→23:44)
[2020-04-20] MEDS: ENOXAPARIN 40 MG/0.4 ML SYRINGE SQ SCH (08:34)
[2020-04-20] MEDS: FAMOTIDINE 20 MG TAB PO SCH (08:34)
[2020-04-20] MEDS: ASCORBIC ACID 500 MG TAB PO SCH ×2 (08:34→20:17)
[2020-04-20] MEDS: ZINC SULFATE 220 MG CAP PO SCH (08:34)
[2020-04-20] MEDS: CHOLECALCIFEROL 25 MCG (1000 IU) TABLET PO SCH (08:34)
--- NOTE | 2020-04-20 08:54 | P.PN ---
Subjective Progress Note Date: 04/20/20 Principal diagnosis: Pneumonia. This is a 44-year-old female that we were asked to see in consultation. The patient has a history of chronic bronchial asthma, hypertension, hyperlipidemia, and palpitations. The patient sees Dr. Jenkins as a primary. The patient has been smoking for about 32 years, and CHF 14. Anyway, the patient went down to [place] recently on vacation. She was irritable right around mid March. She was healthy down there without any major issues. She went down there with her and I note a couple. Nobody was sick or subsequently has gotten sick. In addition, no family members have been held. The patient states that last , she started getting symptoms. This included weakness and fatigue, shortness of breath, cough, chest tightness, and generally just not feeling well. The shortness of breath got so bad, that she decided to come into the emergency room to be evaluated. There she was seen by Dr. Forbes. The patient initially came in with a heart rate of 135, and saturations on room air was 76%. The patient was placed on oxygen therapy there, had a chest x-ray, I CAT scan, blood work, and was given antibiotics. He call me on the phone because he thought the patient would be best served in the intensive care unit and I agreed. The patient's chest x-ray shows near complete opacification of the right hemithorax, as well as some infiltrate in the left midlung and left lower lobe. The computed tomography scan is very impressive as well. Her rapid antigen test for coronaavirus was negative. A PCR test was ordered. The CAT scan doesn't really look like COVID 19 but rather looks more consolidative like somebody with bacterial pneumonia. The patient was placed on Rocephin, and we added azithromycin. Currently, the patient's in the intensive care unit on BiPAP with settings of IPAP 12, EPAP 6, and 60%. The patient also has a basic IV. We will make sure that she has appropriate orders including albuterol inhaler, and Symbicort 160/4.5, 2 puffs twice a day. If her caronavirus PCR comes back negative, we'll switch her to Pulmicort 1 mg along with formoterol, 20 g, twice a day. We'll also place her on some corticosteroids. We'll add vitamin C, vitamin D3, and zinc. We'll also make sure that she has proper GI and DVT prophylaxis. Finally, we'll make sure that she has blood urine and sputum cultures, and, we will go ahead and order inflammatory markers, as well as mycoplasma IgM antibodies, and a urinary Legionella antigen. On 04/18/2020 patient seen in follow-up in intensive care unit, she has remained on BiPAP support most of the night, currently with pressures of 12 and 6 and FiO2 of 60%. Her pulse ox is 88-89%, patient is tachycardic, with a rate of 117, in sinus mechanism, she was febrile last night, and the T-max in the last 24 hours was 101.5F. She is on antibiotics in the form of azithromycin and Rocephin. Repeat COVID PCR was negative. Repeat chest x-ray today showed multiple focal right lung consolidations in peripheral left lingular consolidation consistent with bilateral multifocal pneumonia. Today's labs have been reviewed, showing leukocytosis, neutrophilic, with a white blood cell count of 22.1, sodium is 136, potassium 3.6, CO2 was 18, BUN is 33 and creatinine is 1.04. Renal profile has improved since yesterday. Blood and sputum cultures have been sent, and are pending at this time. She is on GI and DVT prophylaxis, her maintenance IV fluids are infusing at a rate of 110/h, she is on inhaled bronchodilators, and IV steroids 40 mg every 8 hours. Patient is short of breath at rest, but no acute distress, no chest pain or hemoptysis. No altered mentation, she is answering questions appropriately. Lung sounds reveal diminished breath sounds. Progress note dated 04/19/2020. 44-year-old female seen in consultation 2 days ago. The patient was admitted with a diagnosis of bilateral pneumonia, right greater than left. The patient was on BiPAP yesterday. Her BiPAP settings were IPAP 12, EPAP 6, and 60%. Somewhere last night, early in the morning, her saturations and respiratory status worsened, and she was increased up to 100% on the BiPAP. I was not informed. This morning, she was found to be in significant distress. We had anesthesia intubate the patient after a blood gas was obtained. Next, we put in a right radial arterial line, and a left internal jugular triple-lumen catheter. She tolerated both procedures well. Her current vent settings are volume assist control, rate is 30, tidal volume 350, FiO2 100%, and PEEP of 15. A repeat blood gas will be done. One of the ports of the central line will be used for a CVP monitor. The patient's on Rocephin and azithromycin. Also, her urinary antigen for Legionella and quinolones are the drugs of choice. She has been on azithromycin and ceftriaxone from the beginning. Today's white blood count is 34,000, hemoglobin 12, hematocrit 36.9, and platelet count 194,000. Her blood gases, before intubation, had a PaO2 of 65, a pCO2 of 65, pH 7.17. After intubation, on the same settings as before, but only a PEEP of 8, her pO2 was 56, PaCO2 of 71, pH was 7.14. After these second blood gases, the PEEP was increased to 15. She is also heavily sedated on propofol, and we did give her some Nimbex. She may need to be paralyzed over the next few days. Currently, she's getting propofol at 75 mcg/kg/m. We gave her 15 mg of Nimbex for the central line and art line. Sodium is 141, potassium 4.1, chlorides 108, CO2 20, anion gap is 13, BUN is 25, and creatinine 0.83. Cultures, blood urine and sputum, thus far all negative for pending. Mycoplasma IgM antibodies are negative. Chest x-ray shows worsening bilateral infiltrates. Progress note dated 04/20/2020. 44-year-old female seen in consultation 3 days ago. She was admitted with a diagnosis of community-acquired pneumonia. Her urinary test for Legionella was positive. The patient has been on azithromycin and Rocephin from the beginning. Unfortunately, yesterday, she developed worsening hypoxemic respiratory failure and required intubation and mechanical ventilation. Currently, she is on the volume assist control mode, rate 34, tidal volume 350, FiO2 70%, and a PEEP of 18. Blood gases on 80%, show a PaO2 of 141, PaCO2 of 53, and a pH of 7.24. I told her respiratory therapist to continue to wean the FiO2, as long as his saturations are 90% or higher. The patient is on IV of half normal saline at 75 mL an hour, Nimbex at 1 mcg/kg/m, propofol at 25 mcg/kg/m, and vital high protein at goal, which is 20 mL an hour. Her prior IV was saline at 110 mL an hour. Her chest x-ray today shows improvement. White count is 32.2, hemoglobin 11, hematocrit 33.4, and platelet count 190,000. Sodium is 146, potassium 4.4, chlorides 1:15, CO2 25, anion gap 6, BUN 25, and creatinine 0.73. AST is 78, ALT is 39, and alkaline phosphatase is 137. Coronavirus testing 2 was negative. Thus far, all microbiology including blood urine and sputum are negative. A central line and arterial line were placed yesterday. Objective - Vital Signs Vital signs: Vital Signs Temp 98.0 F 04/20/20 04:00 Pulse 88 04/20/20 07:00 Resp 34 H 04/20/20 07:00 BP 99/63 04/20/20 07:00 Pulse Ox 96 04/20/20 07:00 Intake & Output 04/19/20 04/20/20 04/20/20 18:59 06:59 18:59 Intake Total 2411.924 1961.879 116 Output Total 949 1160 60 Balance 1462.924 801.879 56 Weight 92.7 kg 91.6 kg Intake: IV 2120 1386 116 Azithromycin 500 mg In 250 Sodium Chloride 0.9% 250 ml @ 250 mls/hr IVPB Q24H [facility] Rx#:[id number] Pressure bag 66 6 Sodium Chloride 0.9% 1, 1820 1320 110 000 ml @ 110 mls/hr IV . Q9H6M [facility] Rx#:[id number] cefTRIAXone 2 gm In 50 Sodium Chloride 0.9% 50 ml @ 100 mls/hr IVPB Q24HR [facility] Rx#:[id number] Intake, IV Titration 211.924 315.879 Amount Cisatracurium 200 mg In 8.686 98.537 Sodium Chloride 0.9% 180 ml @ 2 MCG/KG/MIN 11.208 mls/hr IV .[id number] [facility] Rx #:[id number] propofoL 500 mg In Empty 203.238 217.342 Bag 1 bag @ Titrate IV . Q0M [facility] Rx#:[id number] Tube Feeding 50 170 Other 30 90 Output: Gastric Drainage 250 Urine 949 910 60 Other: Voiding Method Indwelling Catheter Indwelling Catheter ABP, PAP, CO, CI - Last Documented Arterial Blood Pressure 105/53 - Exam GENERAL EXAM: Currently sedated and paralyzed, with an orally placed endotracheal tube and NG tube. HEAD: Normocephalic/atraumatic. EYES: Normal reaction of pupils, equal size. Conjunctiva pink, sclera white. NOSE: Clear with pink turbinates. THROAT: An orally placed endotracheal tube has been inserted. NECK: No masses, no JVD, no thyroid enlargement, no adenopathy. CHEST: No chest wall deformity. Symmetrical expansion. LUNGS: Diffuse bilateral coarse rhonchi are noted. Rest sounds equal bilateral ly. No crackles or wheezes. CVS: Regular rate and rhythm, normal S1 and S2, no gallops, no murmurs, no rubs. Heart rate is 88 bpm. ABDOMEN: Soft, nontender. No hepatosplenomegaly, no bowel sounds, no guarding or rigidity. EXTREMITIES: No clubbing, no edema, no cyanosis, 2+ pulses and upper and lower extremities. MUSCULOSKELETAL: Muscle strength and tone normal. SPINE: No scoliosis or deformity SKIN: No rashes CENTRAL NERVOUS SYSTEM: Sedated and paralyzed. PSYCHIATRIC: Could not be evaluated appropriately. - Labs CBC & Chem 7: 04/20/20 03:45 04/20/20 03:45 Labs: Abnormal Lab Results - Last 24 Hours (Table) 04/19/20 04/19/20 04/19/20 Range/Units 08:08 09:54 11:19 WBC (3.8-10.6) k/uL RBC (3.80-5.40) m/uL Hgb (11.4-16.0) gm/dL Hct (34.0-46.0) % Neutrophils # (Manual) (1.3-7.7) k/uL Lymphocytes # (Manual) (1.0-4.8) k/uL Metamyelocytes # (Man) (0) k/uL Myelocytes # (Manual) (0) k/uL D-Dimer (<0.60) mg/L FEU ABG pH 7.17 L* 7.14 L* 7.23 L (7.35-7.45) ABG pCO2 65 H 71 H* 55 H (35-45) mmHg ABG pO2 65 L 56 L* 64 L (83-108) mmHg ABG Total CO2 26 H 26 H 25 H (19-24) mmol/L ABG O2 Saturation 87.2 L 80.0 L 89.5 L (94-97) % Sodium (137-145) mmol/L Chloride (98-107) mmol/L BUN (7-17) mg/dL Glucose (74-99) mg/dL POC Glucose (mg/dL) (75-99) mg/dL Calcium (8.4-10.2) mg/dL Magnesium (1.6-2.3) mg/dL Ferritin (10.0-291.0) ng/mL AST (14-36) U/L ALT (4-34) U/L Alkaline Phosphatase (38-126) U/L Lactate Dehydrogenase (313-618) U/L C-Reactive Protein (<10.0) mg/L Total Protein (6.3-8.2) g/dL Albumin (3.5-5.0) g/dL 04/19/20 04/19/20 04/19/20 Range/Units 11:19 13:01 13:10 WBC (3.8-10.6) k/uL RBC (3.80-5.40) m/uL Hgb (11.4-16.0) gm/dL Hct (34.0-46.0) % Neutrophils # (Manual) (1.3-7.7) k/uL Lymphocytes # (Manual) (1.0-4.8) k/uL Metamyelocytes # (Man) (0) k/uL Myelocytes # (Manual) (0) k/uL D-Dimer 2.99 H (<0.60) mg/L FEU ABG pH (7.35-7.45) ABG pCO2 (35-45) mmHg ABG pO2 (83-108) mmHg ABG Total CO2 (19-24) mmol/L ABG O2 Saturation (94-97) % Sodium (137-145) mmol/L Chloride (98-107) mmol/L BUN (7-17) mg/dL Glucose (74-99) mg/dL POC Glucose (mg/dL) 173 H 156 H (75-99) mg/dL Calcium (8.4-10.2) mg/dL Magnesium (1.6-2.3) mg/dL Ferritin (10.0-291.0) ng/mL AST (14-36) U/L ALT (4-34) U/L Alkaline Phosphatase (38-126) U/L Lactate Dehydrogenase (313-618) U/L C-Reactive Protein (<10.0) mg/L Total Protein (6.3-8.2) g/dL Albumin (3.5-5.0) g/dL 04/19/20 04/19/20 04/19/20 Range/Units 13:10 17:07 17:08 WBC (3.8-10.6) k/uL RBC (3.80-5.40) m/uL Hgb (11.4-16.0) gm/dL Hct (34.0-46.0) % Neutrophils # (Manual) (1.3-7.7) k/uL Lymphocytes # (Manual) (1.0-4.8) k/uL Metamyelocytes # (Man) (0) k/uL Myelocytes # (Manual) (0) k/uL D-Dimer (<0.60) mg/L FEU ABG pH 7.23 L (7.35-7.45) ABG pCO2 53 H (35-45) mmHg ABG pO2 124 H (83-108) mmHg ABG Total CO2 (19-24) mmol/L ABG O2 Saturation 98.9 H (94-97) % Sodium (137-145) mmol/L Chloride (98-107) mmol/L BUN (7-17) mg/dL Glucose (74-99) mg/dL POC Glucose (mg/dL) 146 H (75-99) mg/dL Calcium (8.4-10.2) mg/dL Magnesium 2.4 H (1.6-2.3) mg/dL Ferritin 2931.2 H (10.0-291.0) ng/mL AST (14-36) U/L ALT (4-34) U/L Alkaline Phosphatase (38-126) U/L Lactate Dehydrogenase 1908 H (313-618) U/L C-Reactive Protein 346.3 H (<10.0) mg/L Total Protein (6.3-8.2) g/dL Albumin (3.5-5.0) g/dL 04/19/20 04/20/20 04/20/20 Range/Units 23:47 03:45 03:45 WBC 32.2 H (3.8-10.6) k/uL RBC 3.49 L (3.80-5.40) m/uL Hgb 11.0 L (11.4-16.0) gm/dL Hct 33.4 L (34.0-46.0) % Neutrophils # (Manual) 30.90 H (1.3-7.7) k/uL Lymphocytes # (Manual) 0.64 L (1.0-4.8) k/uL Metamyelocytes # (Man) 0.32 H (0) k/uL Myelocytes # (Manual) 0.32 H (0) k/uL D-Dimer (<0.60) mg/L FEU ABG pH (7.35-7.45) ABG pCO2 (35-45) mmHg ABG pO2 (83-108) mmHg ABG Total CO2 (19-24) mmol/L ABG O2 Saturation (94-97) % Sodium 146 H (137-145) mmol/L Chloride 115 H (98-107) mmol/L BUN 25 H (7-17) mg/dL Glucose 186 H (74-99) mg/dL POC Glucose (mg/dL) 168 H (75-99) mg/dL Calcium 7.8 L (8.4-10.2) mg/dL Magnesium (1.6-2.3) mg/dL Ferritin (10.0-291.0) ng/mL AST 78 H (14-36) U/L ALT 39 H (4-34) U/L Alkaline Phosphatase 137 H (38-126) U/L Lactate Dehydrogenase (313-618) U/L C-Reactive Protein (<10.0) mg/L Total Protein 4.8 L (6.3-8.2) g/dL Albumin 2.4 L (3.5-5.0) g/dL 04/20/20 04/20/20 Range/Units 05:39 05:39 WBC (3.8-10.6) k/uL RBC (3.80-5.40) m/uL Hgb (11.4-16.0) gm/dL Hct (34.0-46.0) % Neutrophils # (Manual) (1.3-7.7) k/uL Lymphocytes # (Manual) (1.0-4.8) k/uL Metamyelocytes # (Man) (0) k/uL Myelocytes # (Manual) (0) k/uL D-Dimer (<0.60) mg/L FEU ABG pH 7.24 L (7.35-7.45) ABG pCO2 53 H (35-45) mmHg ABG pO2 141 H (83-108) mmHg ABG Total CO2 25 H (19-24) mmol/L ABG O2 Saturation 99.1 H (94-97) % Sodium (137-145) mmol/L Chloride (98-107) mmol/L BUN (7-17) mg/dL Glucose (74-99) mg/dL POC Glucose (mg/dL) 185 H (75-99) mg/dL Calcium (8.4-10.2) mg/dL Magnesium (1.6-2.3) mg/dL Ferritin (10.0-291.0) ng/mL AST (14-36) U/L ALT (4-34) U/L Alkaline Phosphatase (38-126) U/L Lactate Dehydrogenase (313-618) U/L C-Reactive Protein (<10.0) mg/L Total Protein (6.3-8.2) g/dL Albumin (3.5-5.0) g/dL Microbiology - Last 24 Hours (Table) 04/19/20 08:55 Gram Stain - Preliminary Sputum Sputum Culture - Preliminary 04/19/20 08:55 Legionella Culture - Preliminary Sputum 04/17/20 10:58 Blood Culture - Preliminary Blood No Growth after 48 hours 04/17/20 11:02 Blood Culture - Preliminary Blood No Growth after 48 hours Assessment and Plan Assessment: Acute hypoxemic respiratory failure, with intubation and mechanical ventilation on 04/19/2020. Extensive bilateral, right greater than left, pneumonia, thought to be community acquired. Legionnaires' disease (Legionella pneumophila pneumonia). Acute hypoxemic respiratory failure secondary to extensive consolidative pneumonia bilaterally. History of asthma. History of hypertension. History of hyperlipidemia. History of chronic tobacco use with nicotine addiction, having smoked for 32 years, rule out COPD. Mild metabolic acidosis. Rule out acute kidney injury. History of palpitations. Plan: Plan dated 04/20/2020. The patient will be sedated and paralyzed for additional 24 hours. We will continue to wean down the FiO2. As long as his saturations are 90% or higher, the FiO2 can be reduced. Currently, the IVs changed from saline at 110 mL an hour to half normal saline at 75 mL an hour. This is because of the hypernatremia and hyperchloremia that is developing. In addition, the patient's paralyzed with Nimbex at 1 mcg/kg/m, aostw-ri-oihn monitoring, propofol 25 g kilogram per minute, and vital high protein at goal which is 20 mL an hour. The patient remains on good antibiotics. She's getting albuterol sulfate ipratropium bromide every 4 hours. Microbiology is as far negative. Chest x- rays improved. We will continue to follow make recommendations were appropriate. Time with Patient: Greater than 30
[2020-04-20] MEDS: FORMOTEROL FUMARATE 20 MCG/2 ML NEBU INHALATION SCH ×2 (09:06→20:39)
[2020-04-20] MEDS: BUDESONIDE 1 MG/2 ML NEBU INHALATION SCH ×2 (09:06→20:39)
--- NOTE | 2020-04-20 12:06 | P.PN ---
Subjective 44-year-old the pleasant female came in with compensative for shortness of breath. General his body aches and fever chills patient symptoms has been going on for about a week patient recently returned from [place] from [place] patient is a unaware of any exposure to sick people although patient was exposed to many people when she visited a [place]. Patient had a chest x-ray and a computed tomography scan of the chest which showed extensive consolidation of the right lung and some consolidation and infiltrate consistent with "on the left side. Covid 19 PCR is still pending. Patient is presently on BiPAP patient is being admitted to intensive care unit 04/18/2020 Patient is negative for Covid. Patient appears to have come in today quite pneumonia extensive pneumonia on the right side. Patient Covid 19 PCR was negative. Patient is presently on Airvo, can use to have fevers of 101.5 patient is presently on Rocephin and azithromycin. 04/19/2020 Patient was pretty status worsened was intubated patient is a presently on 100% FiO2 patient had hypoxic as well as hypercapnic respiratory failure with the extremely low pH. Patient is on propofol very high-dose at this time. Patient remains on ceftriaxone and azithromycin and has central venous line right radial arterial line 04/20/2020 Patient remains on ventilator support on propofol. Not on pressors at this time Review of systems: Unable to obtain due to her clinical condition patient is intubated All inpatient medications were reviewed and appropriate changes in these medications as dictated in the interval history and assessment and plan. Objective - Vital Signs Vital signs: Vital Signs Temp 98.2 F 04/20/20 08:00 Pulse 87 04/20/20 11:25 Resp 34 H 04/20/20 11:00 BP 116/59 04/20/20 11:00 Pulse Ox 93 L 04/20/20 11:00 Intake & Output 04/19/20 04/20/20 04/20/20 18:59 06:59 18:59 Intake Total 2411.924 1961.879 730 Output Total 949 1160 435 Balance 1462.924 801.879 295 Weight 92.7 kg 91.6 kg Intake: IV 2120 1386 510 0.45 150 Azithromycin 500 mg In 250 Sodium Chloride 0.9% 250 ml @ 250 mls/hr IVPB Q24H [facility] Rx#:[id number] Pressure bag 66 30 Sodium Chloride 0.9% 1, 1820 1320 330 000 ml @ 110 mls/hr IV . Q9H6M [facility] Rx#:[id number] cefTRIAXone 2 gm In 50 Sodium Chloride 0.9% 50 ml @ 100 mls/hr IVPB Q24HR [facility] Rx#:[id number] Intake, IV Titration 211.924 315.879 50 Amount Cisatracurium 200 mg In 8.686 98.537 Sodium Chloride 0.9% 180 ml @ 2 MCG/KG/MIN 11.208 mls/hr IV .[id number] [facility] Rx #:[id number] propofoL 500 mg In Empty 203.238 217.342 50 Bag 1 bag @ Titrate IV . Q0M [facility] Rx#:[id number] Tube Feeding 50 170 80 Other 30 90 90 Output: Gastric Drainage 250 Urine 949 910 435 Other: Voiding Method Indwelling Catheter Indwelling Catheter Indwelling Catheter ABP, PAP, CO, CI - Last Documented Arterial Blood Pressure 102/54 - Exam PHYSICAL EXAMINATION: GENERAL: Intubated sedated HEENT: Pupils are round and equally reacting to light. EOMI. No scleral icterus. No conjunctival pallor. Normocephalic, atraumatic. No pharyngeal erythema. No thyromegaly. CARDIOVASCULAR: S1 and S2 present. No murmurs, rubs, or gallops. PULMONARY: Good air entry into bilateral lung morales crackles on entire right posterior lung morales. ABDOMEN: Soft, nontender, nondistended, normoactive bowel sounds. No palpable organomegaly. MUSCULOSKELETAL: No joint swelling or deformity. EXTREMITIES: No cyanosis, clubbing, or pedal edema. NEUROLOGICAL: Patient is sedated SKIN: No rashes. - Labs CBC & Chem 7: 04/20/20 03:45 04/20/20 03:45 Labs: Abnormal Lab Results - Last 24 Hours (Table) 04/19/20 04/19/20 04/19/20 Range/Units 13:01 13:10 13:10 WBC (3.8-10.6) k/uL RBC (3.80-5.40) m/uL Hgb (11.4-16.0) gm/dL Hct (34.0-46.0) % Neutrophils # (Manual) (1.3-7.7) k/uL Lymphocytes # (Manual) (1.0-4.8) k/uL Metamyelocytes # (Man) (0) k/uL Myelocytes # (Manual) (0) k/uL D-Dimer 2.99 H (<0.60) mg/L FEU ABG pH (7.35-7.45) ABG pCO2 (35-45) mmHg ABG pO2 (83-108) mmHg ABG Total CO2 (19-24) mmol/L ABG O2 Saturation (94-97) % Sodium (137-145) mmol/L Chloride (98-107) mmol/L BUN (7-17) mg/dL Glucose (74-99) mg/dL POC Glucose (mg/dL) 156 H (75-99) mg/dL Calcium (8.4-10.2) mg/dL Magnesium 2.4 H (1.6-2.3) mg/dL Ferritin 2931.2 H (10.0-291.0) ng/mL AST (14-36) U/L ALT (4-34) U/L Alkaline Phosphatase (38-126) U/L Lactate Dehydrogenase 1908 H (313-618) U/L C-Reactive Protein 346.3 H (<10.0) mg/L Total Protein (6.3-8.2) g/dL Albumin (3.5-5.0) g/dL 04/19/20 04/19/20 04/19/20 Range/Units 17:07 17:08 23:47 WBC (3.8-10.6) k/uL RBC (3.80-5.40) m/uL Hgb (11.4-16.0) gm/dL Hct (34.0-46.0) % Neutrophils # (Manual) (1.3-7.7) k/uL Lymphocytes # (Manual) (1.0-4.8) k/uL Metamyelocytes # (Man) (0) k/uL Myelocytes # (Manual) (0) k/uL D-Dimer (<0.60) mg/L FEU ABG pH 7.23 L (7.35-7.45) ABG pCO2 53 H (35-45) mmHg ABG pO2 124 H (83-108) mmHg ABG Total CO2 (19-24) mmol/L ABG O2 Saturation 98.9 H (94-97) % Sodium (137-145) mmol/L Chloride (98-107) mmol/L BUN (7-17) mg/dL Glucose (74-99) mg/dL POC Glucose (mg/dL) 146 H 168 H (75-99) mg/dL Calcium (8.4-10.2) mg/dL Magnesium (1.6-2.3) mg/dL Ferritin (10.0-291.0) ng/mL AST (14-36) U/L ALT (4-34) U/L Alkaline Phosphatase (38-126) U/L Lactate Dehydrogenase (313-618) U/L C-Reactive Protein (<10.0) mg/L Total Protein (6.3-8.2) g/dL Albumin (3.5-5.0) g/dL 04/20/20 04/20/20 04/20/20 Range/Units 03:45 03:45 05:39 WBC 32.2 H (3.8-10.6) k/uL RBC 3.49 L (3.80-5.40) m/uL Hgb 11.0 L (11.4-16.0) gm/dL Hct 33.4 L (34.0-46.0) % Neutrophils # (Manual) 30.90 H (1.3-7.7) k/uL Lymphocytes # (Manual) 0.64 L (1.0-4.8) k/uL Metamyelocytes # (Man) 0.32 H (0) k/uL Myelocytes # (Manual) 0.32 H (0) k/uL D-Dimer (<0.60) mg/L FEU ABG pH 7.24 L (7.35-7.45) ABG pCO2 53 H (35-45) mmHg ABG pO2 141 H (83-108) mmHg ABG Total CO2 25 H (19-24) mmol/L ABG O2 Saturation 99.1 H (94-97) % Sodium 146 H (137-145) mmol/L Chloride 115 H (98-107) mmol/L BUN 25 H (7-17) mg/dL Glucose 186 H (74-99) mg/dL POC Glucose (mg/dL) (75-99) mg/dL Calcium 7.8 L (8.4-10.2) mg/dL Magnesium (1.6-2.3) mg/dL Ferritin (10.0-291.0) ng/mL AST 78 H (14-36) U/L ALT 39 H (4-34) U/L Alkaline Phosphatase 137 H (38-126) U/L Lactate Dehydrogenase (313-618) U/L C-Reactive Protein (<10.0) mg/L Total Protein 4.8 L (6.3-8.2) g/dL Albumin 2.4 L (3.5-5.0) g/dL 04/20/20 Range/Units 05:39 WBC (3.8-10.6) k/uL RBC (3.80-5.40) m/uL Hgb (11.4-16.0) gm/dL Hct (34.0-46.0) % Neutrophils # (Manual) (1.3-7.7) k/uL Lymphocytes # (Manual) (1.0-4.8) k/uL Metamyelocytes # (Man) (0) k/uL Myelocytes # (Manual) (0) k/uL D-Dimer (<0.60) mg/L FEU ABG pH (7.35-7.45) ABG pCO2 (35-45) mmHg ABG pO2 (83-108) mmHg ABG Total CO2 (19-24) mmol/L ABG O2 Saturation (94-97) % Sodium (137-145) mmol/L Chloride (98-107) mmol/L BUN (7-17) mg/dL Glucose (74-99) mg/dL POC Glucose (mg/dL) 185 H (75-99) mg/dL Calcium (8.4-10.2) mg/dL Magnesium (1.6-2.3) mg/dL Ferritin (10.0-291.0) ng/mL AST (14-36) U/L ALT (4-34) U/L Alkaline Phosphatase (38-126) U/L Lactate Dehydrogenase (313-618) U/L C-Reactive Protein (<10.0) mg/L Total Protein (6.3-8.2) g/dL Albumin (3.5-5.0) g/dL Microbiology - Last 24 Hours (Table) 04/19/20 08:55 Gram Stain - Preliminary Sputum Sputum Culture - Preliminary 04/19/20 08:55 Legionella Culture - Preliminary Sputum 04/17/20 10:58 Blood Culture - Preliminary Blood No Growth after 48 hours 04/17/20 11:02 Blood Culture - Preliminary Blood No Growth after 48 hours Assessment and Plan Plan: -Acute hypoxic respiratory failure: Secondary to pneumonia come in today quite extensive consolidation of right lung, patient will be continued on present antibiotics. Patient is negative for Covid 19 and has pneumonia on the left side as well. Patient is intubated now -Sepsis secondary to community-acquired pneumonia -Leukocytosis secondary to severe sepsis next and-hypertension hold off antiemesis medications with concerns of hypotension secondary to sepsis --Hypertension -Hyperlipidemia -Tachycardia secondary to severe sepsis. Continue with IV fluids
[2020-04-20 12:23] LABS: Glucose,Whole Blood 172 mg/dL (75-99)
[2020-04-20] MEDS: SODIUM CHLORIDE 0.45% 1,000 ML IV SCH (13:20)
[2020-04-20] MEDS: AZITHROMYCIN 500 MG in SODIUM CHLORIDE 0.9% 250 ML IVPB SCH (16:15)
[2020-04-20 17:19] LABS: Glucose,Whole Blood 224 mg/dL (75-99)
[2020-04-20] MEDS: HYDROmorphone 1 MG/ML 1 ML SYRINGE IVP PRN (18:55)
[2020-04-20] MEDS: MONTELUKAST 10 MG TAB PO SCH (20:17)
[2020-04-20] MEDS: ATORVASTATIN 10 MG TAB PO SCH (20:17)
[2020-04-20 23:42] LABS: Glucose,Whole Blood 197 mg/dL (75-99)
[2020-04-20] MEDS: HYDROmorphone 0.5 MG/0.5 ML SYRINGE IVP PRN (23:45)
[2020-04-21] MEDS: IPRATROPIUM-ALBUTEROL 3 ML NEB INHALATION SCH ×6 (00:23→19:46)
[2020-04-21] MEDS: SODIUM CHLORIDE 0.45% 1,000 ML IV SCH ×2 (02:30→15:49)
[2020-04-21] MEDS: ARTIFICIAL TEARS-HYPROMELLOSE DROPS 15 ML BTL BOTH EYES SCH ×6 (04:15→23:35)
[2020-04-21] MEDS: HYDROmorphone 0.5 MG/0.5 ML SYRINGE IVP PRN ×3 (04:19→22:55)
[2020-04-21 04:34] LABS: Basophils # (A) 0.1 k/uL (0-0.2); Basophils % (A) 0 %; Eosinophils % (A) 0 %; HGB 10.7 gm/dL (11.4-16.0); Lymphocytes # (A) 0.9 k/uL (1.0-4.8); Lymphocytes % (A) 3 %; MCH 30.7 pg (25.0-35.0); MCHC 32.5 g/dL (31.0-37.0); MCV 94.5 fL (80.0-100.0); Mean Platelet Volume 10.6; Monocytes # (A) 0.7 k/uL (0-1.0); Monocytes % (A) 3 %; Neutrophils # (A) 24.7 k/uL (1.3-7.7); Neutrophils % (A) 93 %; Platelet Count 214 k/uL (150-450); Poikilocytosis Slight; RBC 3.49 m/uL (3.80-5.40); RDW 15.5 % (11.5-15.5); WBC 26.5 k/uL (3.8-10.6)
[2020-04-21 04:38] LABS: ABG Base Excess -0.3 mmol/L; ABG HCO3 25 mmol/L (21-25); ABG Oxygen Saturation 94.3 % (94-97); ABG PCO2 47 mmHg (35-45); ABG PH 7.35 (7.35-7.45); ABG PO2 73 mmHg (83-108); ABG TCO2 27 mmol/L (19-24); Allen Test Performed? Yes
[2020-04-21 04:39] LABS: ALT 34 U/L (4-34); AST 51 U/L (14-36); African American GFR (CKD) >90 (>60 ml/min/1.73 sqM); Albumin 2.5 g/dL (3.5-5.0); Alkaline Phosphatase 135 U/L (38-126); Anion Gap 5 mmol/L; Blood Urea Nitrogen 29 mg/dL (7-17); Calcium 8.2 mg/dL (8.4-10.2); Carbon Dioxide 25 mmol/L (22-30); Chloride 115 mmol/L (98-107); Glucose 215 mg/dL (74-99); Non-African American GFR(CKD) >90 (>60 ml/min/1.73 sqM); Potassium 4.5 mmol/L (3.5-5.1); Sodium 145 mmol/L (137-145); Total Bilirubin 0.3 mg/dL (0.2-1.3); Total Protein 4.8 g/dL (6.3-8.2)
[2020-04-21 05:41] LABS: Glucose,Whole Blood 229 mg/dL (75-99)
[2020-04-21] MEDS: INSULIN ASPART (NovoLOG) 100 UNIT/ML VIAL SQ SCH ×4 (05:44→23:36)
--- NOTE | 2020-04-21 06:45 | XR ---
EXAMINATION TYPE: XR chest 1V portable DATE OF EXAM: 04/21/2020 CLINICAL HISTORY: Difficulty breathing and pneumonia progress study. TECHNIQUE: Single AP portable semiupright view of the chest is obtained. COMPARISON: Chest x-ray from one day earlier and older studies. FINDINGS: Stable endotracheal and orogastric tubes. Stable left internal jugular central venous cath eter. Multifocal increased opacities bilaterally remain present. Redemonstration of silhouetting the right hemidiaphragm. Cardiac silhouette size stable and within normal limits. Osseous structures are intact . IMPRESSION: Persistent bilateral multifocal multilobar infiltrates. No significant change from one da y earlier.
[2020-04-21] MEDS: BUDESONIDE 1 MG/2 ML NEBU INHALATION SCH ×2 (07:52→19:46)
[2020-04-21] MEDS: FORMOTEROL FUMARATE 20 MCG/2 ML NEBU INHALATION SCH ×2 (07:52→19:46)
[2020-04-21] MEDS: CHLORHEXIDINE GLUCONATE 15 ML CUP MUCOUS MEM SCH ×2 (09:11→20:01)
[2020-04-21] MEDS: ENOXAPARIN 40 MG/0.4 ML SYRINGE SQ SCH (09:11)
[2020-04-21] MEDS: ZINC SULFATE 220 MG CAP PO SCH (09:11)
[2020-04-21] MEDS: methylPREDNISolone SOD SUCCI 40 MG/ML 1 ML VIAL IV SCH ×3 (09:11→23:36)
[2020-04-21] MEDS: amLODIPine 5 MG TAB PO SCH (09:11)
[2020-04-21] MEDS: FAMOTIDINE 20 MG TAB PO SCH (09:11)
[2020-04-21] MEDS: CHOLECALCIFEROL 25 MCG (1000 IU) TABLET PO SCH (09:11)
[2020-04-21] MEDS: ASCORBIC ACID 500 MG TAB PO SCH ×2 (09:11→20:01)
--- NOTE | 2020-04-21 12:00 | P.PN ---
Subjective Progress Note Date: 04/21/20 44-year-old the pleasant female came in with compensative for shortness of breath. General his body aches and fever chills patient symptoms has been going on for about a week patient recently returned from [place] from [place] patient is a unaware of any exposure to sick people although patient was exposed to many people when she visited a [place]. Patient had a chest x-ray and a computed tomography scan of the chest which showed extensive consolidation of the right lung and some consolidation and infiltrate consistent with "on the left side. Covid 19 PCR is still pending. Patient is presently on BiPAP patient is being admitted to intensive care unit 04/18/2020 Patient is negative for Covid. Patient appears to have come in today quite pneumonia extensive pneumonia on the right side. Patient Covid 19 PCR was negative. Patient is presently on Airvo, can use to have fevers of 101.5 pa tient is presently on Rocephin and azithromycin. 04/19/2020 Patient was pretty status worsened was intubated patient is a presently on 100% FiO2 patient had hypoxic as well as hypercapnic respiratory failure with the extremely low pH. Patient is on propofol very high-dose at this time. Patient remains on ceftriaxone and azithromycin and has central venous line right radial arterial line 04/20/2020 Patient remains on ventilator support on propofol. Not on pressors at this time 04/21/2020 Patient is seen in the ICU and being closely monitored. Patient remains on ventilator support and paralytics are on hold at this time. Per nursing staff patient is maintained on tube feedings along with IV steroids and blood sugars have been elevated. Will add low-dose long-acting 10 units daily and continue sliding scale. Review of systems: Unable to obtain due to her clinical condition patient is intubated All inpatient medications were reviewed and appropriate changes in these medications as dictated in the interval history and assessment and plan. Objective - Vital Signs Vital signs: Vital Signs Temp 98.6 F 04/21/20 08:00 Pulse 73 04/21/20 11:00 Resp 34 H 04/21/20 11:00 BP 107/61 04/21/20 11:00 Pulse Ox 92 L 04/21/20 11:00 Intake & Output 04/20/20 04/21/20 04/21/20 18:59 06:59 18:59 Intake Total 1483.606 2557.310 654.950 Output Total 1217 800 375 Balance 618.470 638.310 279.950 Weight 94.3 kg Intake: IV 1315 891 324 0.45 675 825 300 Azithromycin 500 mg In 250 Sodium Chloride 0.9% 250 ml @ 250 mls/hr IVPB Q24H [facility] Rx#:[id number] Pressure bag 60 66 24 Sodium Chloride 0.9% 1, 330 000 ml @ 110 mls/hr IV . Q9H6M [facility] Rx#:[id number] Intake, IV Titration 130.470 257.310 160.950 Amount Cisatracurium 200 mg In 92.777 66.968 Sodium Chloride 0.9% 180 ml @ 2 MCG/KG/MIN 11.208 mls/hr IV .[id number] [facility] Rx #:[id number] propofoL 1,000 mg In 15.709 164.533 93.982 Empty Bag 1 bag @ Titrate IV .Q0M [facility] Rx#: [id number] propofoL 500 mg In Empty 114.761 Bag 1 bag @ Titrate IV . Q0M [facility] Rx#:[id number] Tube Feeding 240 200 80 Other 150 90 90 Output: Urine 1217 800 375 Other: Voiding Method Indwelling Catheter Indwelling Catheter Indwelling Catheter ABP, PAP, CO, CI - Last Documented Arterial Blood Pressure 128/61 - Exam GENERAL: Intubated sedated HEENT: Pupils are round and equally reacting to light. EOMI. No scleral icterus. No conjunctival pallor. Normocephalic, atraumatic. No pharyngeal erythema. No thyromegaly. CARDIOVASCULAR: S1 and S2 present. No murmurs, rubs, or gallops. PULMONARY: Good air entry into bilateral lung morales crackles on entire right posterior lung morales. ABDOMEN: Soft, nontender, nondistended, normoactive bowel sounds. No palpable organomegaly. MUSCULOSKELETAL: No joint swelling or deformity. EXTREMITIES: No cyanosis, clubbing, or pedal edema. NEUROLOGICAL: Patient is sedated SKIN: No rashes. - Labs CBC & Chem 7: 04/21/20 04:05 04/21/20 04:05 Labs: Abnormal Lab Results - Last 24 Hours (Table) 04/20/20 04/20/20 04/20/20 Range/Units 12:22 17:17 23:40 WBC (3.8-10.6) k/uL RBC (3.80-5.40) m/uL Hgb (11.4-16.0) gm/dL Hct (34.0-46.0) % Neutrophils # (1.3-7.7) k/uL Lymphocytes # (1.0-4.8) k/uL D-Dimer (<0.60) mg/L FEU ABG pCO2 (35-45) mmHg ABG pO2 (83-108) mmHg ABG Total CO2 (19-24) mmol/L Chloride (98-107) mmol/L BUN (7-17) mg/dL Glucose (74-99) mg/dL POC Glucose (mg/dL) 172 H 224 H 197 H (75-99) mg/dL Calcium (8.4-10.2) mg/dL AST (14-36) U/L Alkaline Phosphatase (38-126) U/L Total Protein (6.3-8.2) g/dL Albumin (3.5-5.0) g/dL 04/21/20 04/21/20 04/21/20 Range/Units 04:05 04:05 04:05 WBC 26.5 H (3.8-10.6) k/uL RBC 3.49 L (3.80-5.40) m/uL Hgb 10.7 L (11.4-16.0) gm/dL Hct 33.0 L (34.0-46.0) % Neutrophils # 24.7 H (1.3-7.7) k/uL Lymphocytes # 0.9 L (1.0-4.8) k/uL D-Dimer 1.97 H (<0.60) mg/L FEU ABG pCO2 (35-45) mmHg ABG pO2 (83-108) mmHg ABG Total CO2 (19-24) mmol/L Chloride 115 H (98-107) mmol/L BUN 29 H (7-17) mg/dL Glucose 215 H (74-99) mg/dL POC Glucose (mg/dL) (75-99) mg/dL Calcium 8.2 L (8.4-10.2) mg/dL AST 51 H (14-36) U/L Alkaline Phosphatase 135 H (38-126) U/L Total Protein 4.8 L (6.3-8.2) g/dL Albumin 2.5 L (3.5-5.0) g/dL 04/21/20 04/21/20 Range/Units 04:32 05:40 WBC (3.8-10.6) k/uL RBC (3.80-5.40) m/uL Hgb (11.4-16.0) gm/dL Hct (34.0-46.0) % Neutrophils # (1.3-7.7) k/uL Lymphocytes # (1.0-4.8) k/uL D-Dimer (<0.60) mg/L FEU ABG pCO2 47 H (35-45) mmHg ABG pO2 73 L (83-108) mmHg ABG Total CO2 27 H (19-24) mmol/L Chloride (98-107) mmol/L BUN (7-17) mg/dL Glucose (74-99) mg/dL POC Glucose (mg/dL) 229 H (75-99) mg/dL Calcium (8.4-10.2) mg/dL AST (14-36) U/L Alkaline Phosphatase (38-126) U/L Total Protein (6.3-8.2) g/dL Albumin (3.5-5.0) g/dL Microbiology - Last 24 Hours (Table) 04/19/20 08:55 Gram Stain - Final Sputum Sputum Culture - Final 04/17/20 10:58 Blood Culture - Preliminary Blood No Growth after 72 hours 04/17/20 11:02 Blood Culture - Preliminary Blood No Growth after 72 hours Assessment and Plan Assessment: -Acute hypoxic respiratory failure: Secondary to pneumonia with extensive consolidation of right lung, patient will be continued on present antibiotics. Patient is negative for Covid 19 and has pneumonia on the left side as well. Patient is on mechanical ventilation as of 04/19 -Sepsis secondary to community-acquired pneumonia -Leukocytosis secondary to severe sepsis -hypertension hold off antihypertensive medications with concerns of hypotension secondary to sepsis -Elevated blood sugars: Most likely secondary to IV steroids and tube feedings. Will continue with sliding scale and add low-dose long-acting and continue to monitor Accu-Cheks -Hyperlipidemia -Tachycardia secondary to severe sepsis. Continue with IV fluids
[2020-04-21 12:04] LABS: Glucose,Whole Blood 185 mg/dL (75-99)
[2020-04-21] MEDS: INSULIN DETEMIR (LEVEMIR) 100 UNIT/ML SYR SQ SCH (12:06)
--- NOTE | 2020-04-21 12:07 | P.PN ---
Subjective Progress Note Date: 04/21/20 Principal diagnosis: Pneumonia. This is a 44-year-old female that we were asked to see in consultation. The patient has a history of chronic bronchial asthma, hypertension, hyperlipidemia, and palpitations. The patient sees Dr. Jenkins as a primary. The patient has been smoking for about 32 years, and CHF 14. Anyway, the patient went down to [place] recently on vacation. She was irritable right around mid March. She was healthy down there without any major issues. She went down there with her and I note a couple. Nobody was sick or subsequently has gotten sick. In addition, no family members have been held. The patient states that last , she started getting symptoms. This included weakness and fatigue, shortness of breath, cough, chest tightness, and generally just not feeling well. The shortness of breath got so bad, that she decided to come into the emergency room to be evaluated. There she was seen by Dr. Forbes. The patient initially came in with a heart rate of 135, and saturations on room air was 76%. The patient was placed on oxygen therapy there, had a chest x-ray, I CAT scan, blood work, and was given antibiotics. He call me on the phone because he thought the patient would be best served in the intensive care unit and I agreed. The patient's chest x-ray shows near complete opacification of the right hemithorax, as well as some infiltrate in the left midlung and left lower lobe. The computed tomography scan is very impressive as well. Her rapid antigen test for coronaavirus was negative. A PCR test was ordered. The CAT scan doesn't really look like COVID 19 but rather looks more consolidative like somebody with bacterial pneumonia. The patient was placed on Rocephin, and we added azithromycin. Currently, the patient's in the intensive care unit on BiPAP with settings of IPAP 12, EPAP 6, and 60%. The patient also has a basic IV. We will make sure that she has appropriate orders including albuterol inhaler, and Symbicort 160/4.5, 2 puffs twice a day. If her caronavirus PCR comes back negative, we'll switch her to Pulmicort 1 mg along with formoterol, 20 g, twice a day. We'll also place her on some corticosteroids. We'll add vitamin C, vitamin D3, and zinc. We'll also make sure that she has proper GI and DVT prophylaxis. Finally, we'll make sure that she has blood urine and sputum cultures, and, we will go ahead and order inflammatory markers, as well as mycoplasma IgM antibodies, and a urinary Legionella antigen. On 04/18/2020 patient seen in follow-up in intensive care unit, she has remained on BiPAP support most of the night, currently with pressures of 12 and 6 and FiO2 of 60%. Her pulse ox is 88-89%, patient is tachycardic, with a rate of 117, in sinus mechanism, she was febrile last night, and the T-max in the last 24 hours was 101.5F. She is on antibiotics in the form of azithromycin and Rocephin. Repeat COVID PCR was negative. Repeat chest x-ray today showed multiple focal right lung consolidations in peripheral left lingular consolidation consistent with bilateral multifocal pneumonia. Today's labs have been reviewed, showing leukocytosis, neutrophilic, with a white blood cell count of 22.1, sodium is 136, potassium 3.6, CO2 was 18, BUN is 33 and creatinine is 1.04. Renal profile has improved since yesterday. Blood and sputum cultures have been sent, and are pending at this time. She is on GI and DVT prophylaxis, her maintenance IV fluids are infusing at a rate of 110/h, she is on inhaled bronchodilators, and IV steroids 40 mg every 8 hours. Patient is short of breath at rest, but no acute distress, no chest pain or hemoptysis. No altered mentation, she is answering questions appropriately. Lung sounds reveal diminished breath sounds. Progress note dated 04/19/2020. 44-year-old female seen in consultation 2 days ago. The patient was admitted with a diagnosis of bilateral pneumonia, right greater than left. The patient was on BiPAP yesterday. Her BiPAP settings were IPAP 12, EPAP 6, and 60%. Somewhere last night, early in the morning, her saturations and respiratory status worsened, and she was increased up to 100% on the BiPAP. I was not informed. This morning, she was found to be in significant distress. We had anesthesia intubate the patient after a blood gas was obtained. Next, we put in a right radial arterial line, and a left internal jugular triple-lumen catheter. She tolerated both procedures well. Her current vent settings are volume assist control, rate is 30, tidal volume 350, FiO2 100%, and PEEP of 15. A repeat blood gas will be done. One of the ports of the central line will be used for a CVP monitor. The patient's on Rocephin and azithromycin. Also, her urinary antigen for Legionella and quinolones are the drugs of choice. She has been on azithromycin and ceftriaxone from the beginning. Today's white blood count is 34,000, hemoglobin 12, hematocrit 36.9, and platelet count 194,000. Her blood gases, before intubation, had a PaO2 of 65, a pCO2 of 65, pH 7.17. After intubation, on the same settings as before, but only a PEEP of 8, her pO2 was 56, PaCO2 of 71, pH was 7.14. After these second blood gases, the PEEP was increased to 15. She is also heavily sedated on propofol, and we did give her some Nimbex. She may need to be paralyzed over the next few days. Currently, she's getting propofol at 75 mcg/kg/m. We gave her 15 mg of Nimbex for the central line and art line. Sodium is 141, potassium 4.1, chlorides 108, CO2 20, anion gap is 13, BUN is 25, and creatinine 0.83. Cultures, blood urine and sputum, thus far all negative for pending. Mycoplasma IgM antibodies are negative. Chest x-ray shows worsening bilateral infiltrates. Progress note dated 04/20/2020. 44-year-old female seen in consultation 3 days ago. She was admitted with a diagnosis of community-acquired pneumonia. Her urinary test for Legionella was positive. The patient has been on azithromycin and Rocephin from the beginning. Unfortunately, yesterday, she developed worsening hypoxemic respiratory failure and required intubation and mechanical ventilation. Currently, she is on the volume assist control mode, rate 34, tidal volume 350, FiO2 70%, and a PEEP of 18. Blood gases on 80%, show a PaO2 of 141, PaCO2 of 53, and a pH of 7.24. I told her respiratory therapist to continue to wean the FiO2, as long as his saturations are 90% or higher. The patient is on IV of half normal saline at 75 mL an hour, Nimbex at 1 mcg/kg/m, propofol at 25 mcg/kg/m, and vital high protein at goal, which is 20 mL an hour. Her prior IV was saline at 110 mL an hour. Her chest x-ray today shows improvement. White count is 32.2, hemoglobin 11, hematocrit 33.4, and platelet count 190,000. Sodium is 146, potassium 4.4, chlorides 1:15, CO2 25, anion gap 6, BUN 25, and creatinine 0.73. AST is 78, ALT is 39, and alkaline phosphatase is 137. Coronavirus testing 2 was negative. Thus far, all microbiology including blood urine and sputum are negative. A central line and arterial line were placed yesterday. Progress note dated 04/21/2020. 44-year-old female, seen in consultation for days ago. She was diagnosed with community-acquired pneumonia, and her urinary test for Legionella antigen was positive. The patient has been on azithromycin and Rocephin right from the admission to the hospital. Currently, she remains on mechanical ventilation as she required intubation and mechanical ventilation for worsening respiratory failure. Patient is currently on the volume assist control mode, rate 34, tidal volume 350, FiO2 40%, with a PEEP of 18. Arterial blood gases on those settings show a PaO2 of 73, PaCO2 47, and a pH is 7.35. The patient is on Nimbex, at 1 mcg/kg/m, propofol at 30 g kilogram per minute, half-normal saline at 75 mL an hour, and vital high protein at 20, which is goal. We did have some Dilaudid to her regimen yesterday because of her increasing heart rate, and sure enough, it appears that she was experiencing pain, because the Dilaudid really dip help. Chest x-ray my opinion is somewhat improved. White blood count is 26.5, hemoglobin 10.7, hematocrit 33.0, and platelet count 214,000. Her sodium was 145, potassium 4.5, chlorides 115, CO2 25, anion gap 5, BUN 29, and creatinine 0.69. All microbiology is thus far negative. Objective - Vital Signs Vital signs: Vital Signs Temp 98.6 F 04/21/20 08:00 Pulse 73 04/21/20 11:00 Resp 34 H 04/21/20 11:00 BP 107/61 04/21/20 11:00 Pulse Ox 92 L 04/21/20 11:00 Intake & Output 04/20/20 04/21/20 04/21/20 18:59 06:59 18:59 Intake Total 3199.323 6415.310 654.950 Output Total 1217 800 375 Balance 618.470 638.310 279.950 Weight 94.3 kg Intake: IV 1315 891 324 0.45 675 825 300 Azithromycin 500 mg In 250 Sodium Chloride 0.9% 250 ml @ 250 mls/hr IVPB Q24H [facility] Rx#:[id number] Pressure bag 60 66 24 Sodium Chloride 0.9% 1, 330 000 ml @ 110 mls/hr IV . Q9H6M [facility] Rx#:[id number] Intake, IV Titration 130.470 257.310 160.950 Amount Cisatracurium 200 mg In 92.777 66.968 Sodium Chloride 0.9% 180 ml @ 2 MCG/KG/MIN 11.208 mls/hr IV .[id number] [facility] Rx #:[id number] propofoL 1,000 mg In 15.709 164.533 93.982 Empty Bag 1 bag @ Titrate IV .Q0M [facility] Rx#: [id number] propofoL 500 mg In Empty 114.761 Bag 1 bag @ Titrate IV . Q0M [facility] Rx#:[id number] Tube Feeding 240 200 80 Other 150 90 90 Output: Urine 1217 800 375 Other: Voiding Method Indwelling Catheter Indwelling Catheter Indwelling Catheter ABP, PAP, CO, CI - Last Documented Arterial Blood Pressure 128/61 - Exam No acute distress, currently sedated and paralyzed, she has an orally placed endotracheal tube and NG tube. HEENT examination is grossly unremarkable. Neck supple full range of motion. No adenopathy or thyromegaly. Neck veins are flat. Cardiovascular examination reveals a regular rhythm rate. Heart rate mid to high 70s. S1-S2 normal. Heart sounds are distant. No murmur. Pulmonary examination reveals diffuse coarse rhonchi. Breath sounds are equal. No wheezes or crackles. Abdomen soft. Sounds are heard. No masses or tenderness. Extremities are intact. No cyanosis clubbing or edema. Skin is without rash. Neurologic examination cannot be adequately assessed. - Labs CBC & Chem 7: 04/21/20 04:05 04/21/20 04:05 Labs: Abnormal Lab Results - Last 24 Hours (Table) 04/20/20 04/20/20 04/20/20 Range/Units 12:22 17:17 23:40 WBC (3.8-10.6) k/uL RBC (3.80-5.40) m/uL Hgb (11.4-16.0) gm/dL Hct (34.0-46.0) % Neutrophils # (1.3-7.7) k/uL Lymphocytes # (1.0-4.8) k/uL D-Dimer (<0.60) mg/L FEU ABG pCO2 (35-45) mmHg ABG pO2 (83-108) mmHg ABG Total CO2 (19-24) mmol/L Chloride (98-107) mmol/L BUN (7-17) mg/dL Glucose (74-99) mg/dL POC Glucose (mg/dL) 172 H 224 H 197 H (75-99) mg/dL Calcium (8.4-10.2) mg/dL AST (14-36) U/L Alkaline Phosphatase (38-126) U/L Total Protein (6.3-8.2) g/dL Albumin (3.5-5.0) g/dL 04/21/20 04/21/20 04/21/20 Range/Units 04:05 04:05 04:05 WBC 26.5 H (3.8-10.6) k/uL RBC 3.49 L (3.80-5.40) m/uL Hgb 10.7 L (11.4-16.0) gm/dL Hct 33.0 L (34.0-46.0) % Neutrophils # 24.7 H (1.3-7.7) k/uL Lymphocytes # 0.9 L (1.0-4.8) k/uL D-Dimer 1.97 H (<0.60) mg/L FEU ABG pCO2 (35-45) mmHg ABG pO2 (83-108) mmHg ABG Total CO2 (19-24) mmol/L Chloride 115 H (98-107) mmol/L BUN 29 H (7-17) mg/dL Glucose 215 H (74-99) mg/dL POC Glucose (mg/dL) (75-99) mg/dL Calcium 8.2 L (8.4-10.2) mg/dL AST 51 H (14-36) U/L Alkaline Phosphatase 135 H (38-126) U/L Total Protein 4.8 L (6.3-8.2) g/dL Albumin 2.5 L (3.5-5.0) g/dL 04/21/20 04/21/20 Range/Units 04:32 05:40 WBC (3.8-10.6) k/uL RBC (3.80-5.40) m/uL Hgb (11.4-16.0) gm/dL Hct (34.0-46.0) % Neutrophils # (1.3-7.7) k/uL Lymphocytes # (1.0-4.8) k/uL D-Dimer (<0.60) mg/L FEU ABG pCO2 47 H (35-45) mmHg ABG pO2 73 L (83-108) mmHg ABG Total CO2 27 H (19-24) mmol/L Chloride (98-107) mmol/L BUN (7-17) mg/dL Glucose (74-99) mg/dL POC Glucose (mg/dL) 229 H (75-99) mg/dL Calcium (8.4-10.2) mg/dL AST (14-36) U/L Alkaline Phosphatase (38-126) U/L Total Protein (6.3-8.2) g/dL Albumin (3.5-5.0) g/dL Microbiology - Last 24 Hours (Table) 04/19/20 08:55 Gram Stain - Final Sputum Sputum Culture - Final 04/17/20 10:58 Blood Culture - Preliminary Blood No Growth after 72 hours 04/17/20 11:02 Blood Culture - Preliminary Blood No Growth after 72 hours Assessment and Plan Assessment: Acute hypoxemic respiratory failure, with intubation and mechanical ventilation on 04/19/2020. Extensive bilateral, right greater than left, pneumonia, thought to be community acquired. Legionnaires' disease (Legionella pneumophila pneumonia). Acute hypoxemic respiratory failure secondary to extensive consolidative pneumonia bilaterally. History of asthma. History of hypertension. History of hyperlipidemia. History of chronic tobacco use with nicotine addiction, having smoked for 32 years, rule out COPD. Mild metabolic acidosis. Rule out acute kidney injury. History of palpitations. Plan: Plan dated 04/21/2020. The patient's oxygenation has improved and we were able to break her shunt. Her PEEP was decreased by 3 today, down to 15. We may make an additional change later today. In addition, we stopped the patient's Nimbex. She will remain on propofol, and get Dilaudid when necessary. She's being enterally nourished at goal. Her blood gases were reasonable. Her chest x-ray seems to be improving. The patient remains on appropriate antibiotics. The patient also remains on DVT prophylaxis and GI prophylaxis, as well as albuterol sulfate and ipratropium bromide, every 4 hours, [id number]. Prognosis is guarded. We will continue to follow. Additional recommendations and suggestions are forthcoming. Time with Patient: Greater than 30
[2020-04-21] MEDS: HYDROmorphone 1 MG/ML 1 ML SYRINGE IVP PRN ×2 (13:05→17:05)
[2020-04-21] MEDS: AZITHROMYCIN 500 MG in SODIUM CHLORIDE 0.9% 250 ML IVPB SCH (15:48)
[2020-04-21 18:01] LABS: Glucose,Whole Blood 198 mg/dL (75-99)
[2020-04-21] MEDS: ATORVASTATIN 10 MG TAB PO SCH (20:01)
[2020-04-21] MEDS: MONTELUKAST 10 MG TAB PO SCH (20:01)
[2020-04-21 23:33] LABS: Glucose,Whole Blood 196 mg/dL (75-99)
[2020-04-22] MEDS: IPRATROPIUM-ALBUTEROL 3 ML NEB INHALATION SCH ×7 (00:27→23:39)
[2020-04-22] MEDS: SODIUM CHLORIDE 0.45% 1,000 ML IV SCH ×2 (02:49→08:57)
[2020-04-22] MEDS: ARTIFICIAL TEARS-HYPROMELLOSE DROPS 15 ML BTL BOTH EYES SCH ×6 (03:59→23:41)
[2020-04-22] MEDS: HYDROmorphone 0.5 MG/0.5 ML SYRINGE IVP PRN ×4 (04:00→21:43)
[2020-04-22 04:30] LABS: Basophils # (A) 0.1 k/uL (0-0.2); Basophils % (A) 1 %; Eosinophils % (A) 0 %; HCT 30.5 % (34.0-46.0); HGB 10.2 gm/dL (11.4-16.0); Lymphocytes # (A) 1.1 k/uL (1.0-4.8); Lymphocytes % (A) 6 %; MCH 31.5 pg (25.0-35.0); MCHC 33.4 g/dL (31.0-37.0); MCV 94.4 fL (80.0-100.0); Mean Platelet Volume 10.6; Monocytes # (A) 0.6 k/uL (0-1.0); Monocytes % (A) 3 %; Neutrophils # (A) 17.2 k/uL (1.3-7.7); Neutrophils % (A) 89 %; Platelet Count 246 k/uL (150-450); RBC 3.23 m/uL (3.80-5.40); RDW 15.3 % (11.5-15.5); WBC 19.3 k/uL (3.8-10.6)
[2020-04-22 04:36] LABS: ALT 37 U/L (4-34); AST 43 U/L (14-36); African American GFR (CKD) >90 (>60 ml/min/1.73 sqM); Albumin 2.5 g/dL (3.5-5.0); Alkaline Phosphatase 117 U/L (38-126); Anion Gap 4 mmol/L; Blood Urea Nitrogen 34 mg/dL (7-17); C Reactive Protein 62.6 mg/L (<10.0); Calcium 8.3 mg/dL (8.4-10.2); Carbon Dioxide 27 mmol/L (22-30); Chloride 116 mmol/L (98-107); Creatine Kinase 43 U/L (30-135); Glucose 207 mg/dL (74-99); LDH 1032 U/L (313-618); Magnesium 2.4 mg/dL (1.6-2.3); Non-African American GFR(CKD) >90 (>60 ml/min/1.73 sqM); Potassium 4.5 mmol/L (3.5-5.1); Sodium 147 mmol/L (137-145); Total Bilirubin 0.4 mg/dL (0.2-1.3)
[2020-04-22 05:27] LABS: ABG HCO3 28 mmol/L (21-25); ABG Oxygen Saturation 96.4 % (94-97); ABG PCO2 42 mmHg (35-45); ABG PH 7.42 (7.35-7.45); ABG PO2 92 mmHg (83-108); ABG TCO2 29 mmol/L (19-24); Allen Test Performed? Yes
[2020-04-22 05:41] LABS: Glucose,Whole Blood 220 mg/dL (75-99)
[2020-04-22] MEDS: INSULIN ASPART (NovoLOG) 100 UNIT/ML VIAL SQ SCH ×6 (05:43→23:40)
[2020-04-22] MEDS: INSULIN DETEMIR (LEVEMIR) 100 UNIT/ML SYR SQ SCH (06:58)
--- NOTE | 2020-04-22 07:51 | XR ---
EXAMINATION TYPE: XR chest 1V portable DATE OF EXAM: 04/22/2020 CLINICAL HISTORY: Difficulty breathing and pneumonia progress study. TECHNIQUE: Single AP portable semi-upright view of the chest is obtained. COMPARISON: Chest x-ray from one day earlier and older studies. FINDINGS: Stable endotracheal and orogastric tubes. Stable left internal jugular central venous cath eter. Multifocal increased opacities bilaterally greatest in the lower lungs remain present. Redemonstratio n of silhouetting the right hemidiaphragm. Cardiac silhouette size stable and within normal limits. O sseous structures are intact. IMPRESSION: Persistent bilateral multifocal multilobar infiltrates. No significant change from one da y earlier.
[2020-04-22 07:53] LABS: Glucose,Whole Blood 221 mg/dL (75-99)
[2020-04-22] MEDS ORDERED: FUROSEMIDE 10 MG/ML 4 ML VIAL IV STA (08:26)
--- NOTE | 2020-04-22 08:28 | P.PN ---
Subjective Progress Note Date: 04/22/20 On 05/12/2020 I'm seeing this patient in follow-up in the intensive care unit. This patient has been diagnosed having Legionella pneumonia with extensive bilateral consolidation acute hypoxic respiratory failure, requiring intubation mechanical ventilation as of 04/19/2020. The patient currently is on mechanical ventilator on assist control mode at the rate of 34 with a tidal volume of 350 and FiO2 of 40% and a PEEP of 15. The blood gases from today shows a pH of 7.42 with a pCO2 of 42 and pO2 of 92. Chest x-ray continues to show improvement in the right lung consolidation there is also improvement in her left lower lobe consolidation. ET tube is in a good location. White cell count the 19.3 and is down. The patient is hemodynamically stable and the patient is on no pressors. The patient is currently on propofol sedated at the rate of 50 mcg/kg per minute. IV fluids is running at 75 mL an hour. She has a triple-lumen catheter in her left subclavian and she has also an arterial line in her right upper extremity. No signs of any fluid overload. She is receiving enteral feeding for nutritional support and she is currently on vital high protein at the rate of 20 mL an hour. Antibiotic coverage includes a combination of Zithromax and Rocephin. She is also on IV Solu Medrol 40 mg every 8 hours. Fluid balance +1 L, and the COVID 19 testing was negative. Liver function tests are improving and his CPK was 346 and time of admission. The peak airway pressure is around 34 static airway pressure is 29. Objective - Vital Signs Vital signs: Vital Signs Temp 99.2 F 04/22/20 04:00 Pulse 68 04/22/20 07:00 Resp 34 H 04/22/20 07:00 BP 123/63 04/22/20 07:00 Pulse Ox 96 04/22/20 07:00 Intake & Output 04/21/20 04/22/20 04/22/20 18:59 06:59 18:59 Intake Total 2740.626 6958.015 101 Output Total 1075 1060 100 Balance 535.950 546.015 1 Weight 95.6 kg Intake: IV 960 966 81 0.45 900 900 75 Pressure bag 60 66 6 Intake, IV Titration 260.950 290.015 Amount Cisatracurium 200 mg In 66.968 Sodium Chloride 0.9% 180 ml @ 2 MCG/KG/MIN 11.208 mls/hr IV .[id number] [facility] Rx #:[id number] propofoL 1,000 mg In 193.982 290.015 Empty Bag 1 bag @ Titrate IV .Q0M [facility] Rx#: [id number] Tube Feeding 240 260 20 Other 150 90 Output: Urine 1075 1060 100 Other: Voiding Method Indwelling Catheter Indwelling Catheter ABP, PAP, CO, CI - Last Documented Arterial Blood Pressure 145/65 - Exam No acute distress, currently sedated and paralyzed, she has an orally placed endotracheal tube and NG tube. Head exam was generally normal. There was no scleral icterus or corneal arcus. Mucous membranes were moist. HEENT examination is grossly unremarkable. Neck supple full range of motion. No adenopathy or thyromegaly. Neck veins are flat. Cardiac exam revealed the PMI to be normally situated and sized. The rhythm was regular and no extrasystoles were noted during several minutes of auscultation. The first and second heart sounds were normal and physiologic splitting of the second heart sound was noted. There were no murmurs, rubs, clicks, or gallops. Pulmonary examination reveals diffuse coarse rhonchi. Breath sounds are equal. No wheezes or crackles. Abdomen soft. Sounds are heard. No masses or tenderness. Extremities are intact. No cyanosis clubbing or edema. Examination of the skin revealed no evidence of significant rashes, suspicious appearing nevi or other concerning lesions. Neurologic examination cannot be adequately assessed. - Labs CBC & Chem 7: 04/22/20 03:55 04/22/20 03:55 Labs: Abnormal Lab Results - Last 24 Hours (Table) 04/21/20 04/21/20 04/21/20 Range/Units 12:02 18:00 23:32 WBC (3.8-10.6) k/uL RBC (3.80-5.40) m/uL Hgb (11.4-16.0) gm/dL Hct (34.0-46.0) % Neutrophils # (1.3-7.7) k/uL ABG HCO3 (21-25) mmol/L ABG Total CO2 (19-24) mmol/L Sodium (137-145) mmol/L Chloride (98-107) mmol/L BUN (7-17) mg/dL Glucose (74-99) mg/dL POC Glucose (mg/dL) 185 H 198 H 196 H (75-99) mg/dL Calcium (8.4-10.2) mg/dL Magnesium (1.6-2.3) mg/dL AST (14-36) U/L ALT (4-34) U/L Lactate Dehydrogenase (313-618) U/L C-Reactive Protein (<10.0) mg/L Total Protein (6.3-8.2) g/dL Albumin (3.5-5.0) g/dL 04/22/20 04/22/20 04/22/20 Range/Units 03:55 03:55 05:25 WBC 19.3 H (3.8-10.6) k/uL RBC 3.23 L (3.80-5.40) m/uL Hgb 10.2 L (11.4-16.0) gm/dL Hct 30.5 L (34.0-46.0) % Neutrophils # 17.2 H (1.3-7.7) k/uL ABG HCO3 28 H (21-25) mmol/L ABG Total CO2 29 H (19-24) mmol/L Sodium 147 H (137-145) mmol/L Chloride 116 H (98-107) mmol/L BUN 34 H (7-17) mg/dL Glucose 207 H (74-99) mg/dL POC Glucose (mg/dL) (75-99) mg/dL Calcium 8.3 L (8.4-10.2) mg/dL Magnesium 2.4 H (1.6-2.3) mg/dL AST 43 H (14-36) U/L ALT 37 H (4-34) U/L Lactate Dehydrogenase 1032 H (313-618) U/L C-Reactive Protein 62.6 H (<10.0) mg/L Total Protein 5.0 L (6.3-8.2) g/dL Albumin 2.5 L (3.5-5.0) g/dL 04/22/20 04/22/20 Range/Units 05:40 07:52 WBC (3.8-10.6) k/uL RBC (3.80-5.40) m/uL Hgb (11.4-16.0) gm/dL Hct (34.0-46.0) % Neutrophils # (1.3-7.7) k/uL ABG HCO3 (21-25) mmol/L ABG Total CO2 (19-24) mmol/L Sodium (137-145) mmol/L Chloride (98-107) mmol/L BUN (7-17) mg/dL Glucose (74-99) mg/dL POC Glucose (mg/dL) 220 H 221 H (75-99) mg/dL Calcium (8.4-10.2) mg/dL Magnesium (1.6-2.3) mg/dL AST (14-36) U/L ALT (4-34) U/L Lactate Dehydrogenase (313-618) U/L C-Reactive Protein (<10.0) mg/L Total Protein (6.3-8.2) g/dL Albumin (3.5-5.0) g/dL Microbiology - Last 24 Hours (Table) 04/17/20 10:58 Blood Culture - Preliminary Blood No Growth after 96 hours 04/17/20 11:02 Blood Culture - Preliminary Blood No Growth after 96 hours 04/19/20 08:55 Gram Stain - Final Sputum Sputum Culture - Final Assessment and Plan Plan: 1 Acute hypoxemic respiratory failure, with intubation and mechanical ventilation on 04/19/2020. The patient remains intubated on a mechanical ventilator and she is on a PEEP of 15 with an FiO2 of 40%. She is on low tidal volume ventilation with a tidal volume of 350 and she is hemodynamically stable on no pressors. Chest x-ray shows improvement in the bilateral pulmonary infiltrates especially on the right. 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 3 Acute hypoxemic respiratory failure secondary to extensive consolidative pn eumonia bilaterally. 4 History of asthma. 5 History of hypertension. 6 History of hyperlipidemia. 7 History of chronic tobacco use with nicotine addiction, having smoked for 32 years, rule out COPD. 8 Mild metabolic acidosis. 9 acute kidney injury , recovered 10 acute leukocytosis secondary to above Plan: Switch this patient to Levaquin 750 mg IV every 24 hours and stop the Rocephin and Zithromax combination Lasix 40 mg IV 1 Continue propofol The PEEP down to 13 Continue enteral feeding for nutritional support Lovenox for DVT prophylaxis Not ready for weaning yet. Still has issues with oxygenation and chest x-ray still showing extensive bilateral pulmonary infiltration related to Legionella pneumonia Stop the IV fluids and allow the patient free water flushes 200 mL every 6 hours Condition is critical. There is a high mortality risk because of an extensive pneumonia and sepsis secondary to Legionella pneumonia. Family will be updated and the patient will be kept in ICU for now Critically care evaluation that was done more than 30 min Time with Patient: Greater than 30
[2020-04-22] MEDS: ZINC SULFATE 220 MG CAP PO SCH (08:46)
[2020-04-22] MEDS: ASCORBIC ACID 500 MG TAB PO SCH ×2 (08:46→20:15)
[2020-04-22] MEDS: amLODIPine 5 MG TAB PO SCH (08:46)
[2020-04-22] MEDS: ENOXAPARIN 40 MG/0.4 ML SYRINGE SQ SCH (08:46)
[2020-04-22] MEDS: CHOLECALCIFEROL 25 MCG (1000 IU) TABLET PO SCH (08:46)
[2020-04-22] MEDS: methylPREDNISolone SOD SUCCI 40 MG/ML 1 ML VIAL IV SCH ×3 (08:46→23:40)
[2020-04-22] MEDS: CHLORHEXIDINE GLUCONATE 15 ML CUP MUCOUS MEM SCH ×2 (08:46→20:14)
[2020-04-22] MEDS: FAMOTIDINE 20 MG TAB PO SCH (08:46)
[2020-04-22] MEDS: LEVOFLOXACIN 750MG-D5W PMX 750 MG in DEXTROSE/WATER 1 150ML.BAG IVPB SCH (08:51)
[2020-04-22] MEDS: FORMOTEROL FUMARATE 20 MCG/2 ML NEBU INHALATION SCH ×2 (08:54→20:22)
[2020-04-22] MEDS: BUDESONIDE 1 MG/2 ML NEBU INHALATION SCH ×2 (08:54→20:22)
[2020-04-22 09:36] LABS: Ferritin 1279.3 ng/mL (10.0-291.0)
[2020-04-22 11:50] LABS: Glucose,Whole Blood 153 mg/dL (75-99)
--- NOTE | 2020-04-22 13:41 | P.PN ---
Subjective Progress Note Date: 04/22/20 This is a 44-year-old the pleasant female came in with compensative for shortness of breath. Generalized body aches and fever chills patient symptoms has been going on for about a week patient recently returned from [place] from [place] patient is a unaware of any exposure to sick people although patient was exposed to many people when she visited a [place]. Patient had a chest x- ray and a computed tomography scan of the chest which showed extensive consolidation of the right lung and some consolidation and infiltrate consistent with on the left side. Covid 19 PCR is still pending. Patient is presently on BiPAP patient is being admitted to intensive care unit 04/22/2020 Patient is seen and evaluated and follow-up continues to be closely monitored in the ICU. Patient is maintained on mechanical ventilation and is sedated. IV antibiotics transitioned to Levaquin and pulmonary is following closely. Chest x-ray today shows persistent bilateral multifocal multilobar infiltrates with no significant change from yesterday. White blood count slowly trending down at 19.3, sodium is 147, potassium is 4.5, current creatinine is 0.59. Blood sugars slightly elevated and will continue with sliding scale along with long-acting as patient is on IV steroids. Patient was positive for Legionella and urine and sputum cultures currently pending. Review of systems: Unable to obtain due to her clinical condition patient is intubated Active Medications Acetaminophen (Acetaminophen Tab 325 Mg Tab) 650 mg PO Q4HR PRN PRN Reason: Fever and/or Mild Pain Last Admin: 04/18/20 23:52 Dose: 650 mg Documented by: Albuterol/Ipratropium (Ipratropium-Albuterol 3 Ml Neb) 3 ml INHALATION RT-Q4H [facility] Last Admin: 04/22/20 11:37 Dose: 3 ml Documented by: Albuterol/Ipratropium (Ipratropium-Albuterol 3 Ml Neb) 3 ml INHALATION RT-Q2H PRN PRN Reason: Shortness Of Breath Or Wheezing Amlodipine Besylate (Amlodipine 5 Mg Tab) 5 mg PO DAILY [facility] Last Admin: 04/22/20 08:46 Dose: 5 mg Documented by: Artificial Tears (Artificial Tears-Hypromellose Drops 15 Ml Btl) 2 drops BOTH EYES Q4HR [facility] Last Admin: 04/22/20 11:59 Dose: 2 drops Documented by: Ascorbic Acid (Ascorbic Acid 500 Mg Tab) 500 mg PO BID [facility] Last Admin: 04/22/20 08:46 Dose: 500 mg Documented by: Atorvastatin Calcium (Atorvastatin 10 Mg Tab) 10 mg PO HS [facility] Last Admin: 04/21/20 20:01 Dose: 10 mg Documented by: Budesonide (Budesonide 1 Mg/2 Ml Nebu) 1 mg INHALATION RT-BID [facility] Last Admin: 04/22/20 08:54 Dose: 1 mg Documented by: Chlorhexidine Gluconate (Chlorhexidine Gluconate 15 Ml Cup) 15 ml MUCOUS MEM BID [facility] Last Admin: 04/22/20 08:46 Dose: 15 ml Documented by: Cholecalciferol (Cholecalciferol 25 Mcg (1000 Iu) Tablet) 25 mcg PO DAILY [facility] Last Admin: 04/22/20 08:46 Dose: 25 mcg Documented by: Enoxaparin Sodium (Enoxaparin 40 Mg/0.4 Ml Syringe) 40 mg SQ DAILY [facility] Last Admin: 04/22/20 08:46 Dose: 40 mg Documented by: Famotidine (Famotidine 20 Mg Tab) 20 mg PO DAILY [facility] Last Admin: 04/22/20 08:46 Dose: 20 mg Documented by: Formoterol Fumarate (Formoterol Fumarate 20 Mcg/2 Ml Nebu) 20 mcg INHALATION RT-BID [facility] Last Admin: 04/22/20 08:54 Dose: 20 mcg Documented by: Hydromorphone HCl (Hydromorphone 1 Mg/Ml 1 Ml Syringe) 1 mg IVP Q2HR PRN PRN Reason: Severe Pain Last Admin: 04/21/20 17:05 Dose: 1 mg Documented by: Hydromorphone HCl (Hydromorphone 0.5 Mg/0.5 Ml Syringe) 0.5 mg IVP Q2HR PRN PRN Reason: Moderate Pain Last Admin: 04/22/20 11:04 Dose: 0.5 mg Documented by: Propofol 1,000 mg/ IV Solution 100 mls @ 0 mls/hr IV .Q0M [facility]; Protocol Last Admin: 04/22/20 09:24 Dose: 50 mcg/kg/min, 28.29 mls/hr Documented by: Levofloxacin 750 mg/ IV (Solution) 150 mls @ 100 mls/hr IVPB Q24H [facility] Last Admin: 04/22/20 08:51 Dose: 100 mls/hr Documented by: Sodium Chloride (Saline 0.45%) 1,000 mls @ 10 mls/hr IV .Q24H [facility] Last Admin: 04/22/20 08:57 Dose: 10 mls/hr Documented by: Insulin Aspart (Insulin Aspart (Novolog) 100 Unit/Ml Vial) 0 unit SQ Q4HR [facility]; Protocol Last Admin: 04/22/20 11:59 Dose: 2 unit Documented by: Insulin Detemir (Insulin Detemir (Levemir) 100 Unit/Ml Syr) 10 unit SQ DAILY@0700 [facility] Last Admin: 04/22/20 06:58 Dose: 10 unit Documented by: Methylprednisolone Sodium Succinate (Methylprednisolone Sod Succi 40 Mg/Ml 1 Ml Vial) 40 mg IV Q8HR [facility] Last Admin: 04/22/20 08:46 Dose: 40 mg Documented by: Miscellaneous Information (Potassium Replacement Protocol 1 Each Misc) 1 each MISCELLANE DAILY PRN; Protocol PRN Reason: Per Protocol Montelukast Sodium (Montelukast 10 Mg Tab) 10 mg PO HS [facility] Last Admin: 04/21/20 20:01 Dose: 10 mg Documented by: Naloxone HCl (Naloxone 0.4 Mg/Ml 1 Ml Vial) 0.2 mg IV Q2M PRN PRN Reason: Opioid Reversal Zinc Sulfate (Zinc Sulfate 220 Mg Cap) 220 mg PO DAILY [facility] Last Admin: 04/22/20 08:46 Dose: 220 mg Documented by: Objective - Vital Signs Vital signs: Vital Signs Temp 99.2 F 04/22/20 04:00 Pulse 68 04/22/20 07:00 Resp 34 H 04/22/20 07:00 BP 123/63 04/22/20 07:00 Pulse Ox 96 04/22/20 07:00 Intake & Output 04/21/20 04/22/20 04/22/20 18:59 06:59 18:59 Intake Total 2795.236 1328.015 101 Output Total 1075 1060 100 Balance 535.950 546.015 1 Weight 95.6 kg Intake: IV 960 966 81 0.45 900 900 75 Pressure bag 60 66 6 Intake, IV Titration 260.950 290.015 Amount Cisatracurium 200 mg In 66.968 Sodium Chloride 0.9% 180 ml @ 2 MCG/KG/MIN 11.208 mls/hr IV .[id number] [facility] Rx #:[id number] propofoL 1,000 mg In 193.982 290.015 Empty Bag 1 bag @ Titrate IV .Q0M [facility] Rx#: [id number] Tube Feeding 240 260 20 Other 150 90 Output: Urine 1075 1060 100 Other: Voiding Method Indwelling Catheter Indwelling Catheter ABP, PAP, CO, CI - Last Documented Arterial Blood Pressure 145/65 - Exam GENERAL: Patient is currently intubated and sedated. Temp is 99.2F, pulse is 70, respirations are 34, blood pressure is 126/73, oxygen saturation is 96% on mechanical ventilation with an FiO2 of 40 HEENT: Pupils are round and equally reacting to light. EOMI. No scleral icterus. No conjunctival pallor. Normocephalic, atraumatic. No pharyngeal erythema. No thyromegaly. NG tube noted with tube feedings CARDIOVASCULAR: S1 and S2 present. No murmurs, rubs, or gallops. PULMONARY: Diminished breath sounds bilaterally with some scattered rhonchi noted ABDOMEN: Soft, nontender, nondistended, normoactive bowel sounds. No palpable organomegaly. MUSCULOSKELETAL: No joint swelling or deformity. EXTREMITIES: No cyanosis, clubbing, or pedal edema. NEUROLOGICAL: Patient is sedated SKIN: No rashes. - Labs CBC & Chem 7: 04/22/20 03:55 04/22/20 03:55 Labs: Abnormal Lab Results - Last 24 Hours (Table) 04/21/20 04/21/20 04/21/20 Range/Units 12:02 18:00 23:32 WBC (3.8-10.6) k/uL RBC (3.80-5.40) m/uL Hgb (11.4-16.0) gm/dL Hct (34.0-46.0) % Neutrophils # (1.3-7.7) k/uL ABG HCO3 (21-25) mmol/L ABG Total CO2 (19-24) mmol/L Sodium (137-145) mmol/L Chloride (98-107) mmol/L BUN (7-17) mg/dL Glucose (74-99) mg/dL POC Glucose (mg/dL) 185 H 198 H 196 H (75-99) mg/dL Calcium (8.4-10.2) mg/dL Magnesium (1.6-2.3) mg/dL AST (14-36) U/L ALT (4-34) U/L Lactate Dehydrogenase (313-618) U/L C-Reactive Protein (<10.0) mg/L Total Protein (6.3-8.2) g/dL Albumin (3.5-5.0) g/dL 04/22/20 04/22/20 04/22/20 Range/Units 03:55 03:55 05:25 WBC 19.3 H (3.8-10.6) k/uL RBC 3.23 L (3.80-5.40) m/uL Hgb 10.2 L (11.4-16.0) gm/dL Hct 30.5 L (34.0-46.0) % Neutrophils # 17.2 H (1.3-7.7) k/uL ABG HCO3 28 H (21-25) mmol/L ABG Total CO2 29 H (19-24) mmol/L Sodium 147 H (137-145) mmol/L Chloride 116 H (98-107) mmol/L BUN 34 H (7-17) mg/dL Glucose 207 H (74-99) mg/dL POC Glucose (mg/dL) (75-99) mg/dL Calcium 8.3 L (8.4-10.2) mg/dL Magnesium 2.4 H (1.6-2.3) mg/dL AST 43 H (14-36) U/L ALT 37 H (4-34) U/L Lactate Dehydrogenase 1032 H (313-618) U/L C-Reactive Protein 62.6 H (<10.0) mg/L Total Protein 5.0 L (6.3-8.2) g/dL Albumin 2.5 L (3.5-5.0) g/dL 04/22/20 04/22/20 Range/Units 05:40 07:52 WBC (3.8-10.6) k/uL RBC (3.80-5.40) m/uL Hgb (11.4-16.0) gm/dL Hct (34.0-46.0) % Neutrophils # (1.3-7.7) k/uL ABG HCO3 (21-25) mmol/L ABG Total CO2 (19-24) mmol/L Sodium (137-145) mmol/L Chloride (98-107) mmol/L BUN (7-17) mg/dL Glucose (74-99) mg/dL POC Glucose (mg/dL) 220 H 221 H (75-99) mg/dL Calcium (8.4-10.2) mg/dL Magnesium (1.6-2.3) mg/dL AST (14-36) U/L ALT (4-34) U/L Lactate Dehydrogenase (313-618) U/L C-Reactive Protein (<10.0) mg/L Total Protein (6.3-8.2) g/dL Albumin (3.5-5.0) g/dL Microbiology - Last 24 Hours (Table) 04/17/20 10:58 Blood Culture - Preliminary Blood No Growth after 96 hours 04/17/20 11:02 Blood Culture - Preliminary Blood No Growth after 96 hours 04/19/20 08:55 Gram Stain - Final Sputum Sputum Culture - Final Assessment and Plan Assessment: -Acute hypoxic respiratory failure secondary to pneumonia with extensive consolidation of right lung requiring mechanical ventilation on 04/19/2020 -Covid 19 ruled out, testing 2 was negative -Sepsis secondary to community-acquired pneumonia -Leukocytosis secondary to severe sepsis -hypertension -Elevated blood sugars: Most likely secondary to IV steroids and tube feedings -Hyperlipidemia -Tachycardia secondary to severe sepsis -Full code Recommendations and discussion: Recommend continue current medications, management, and symptomatic treatment. Patient currently on mechanical ventilation with sedation and not ready for attempts at weaning at this time. Chest x-ray continues to show persistent infiltrates bilaterally with no significant change. Patient's antibiotics transitioned to Levaquin. Sputum Legionella culture pending at this time. P atient was positive for Legionella in the urine. Will continue monitor Accu- Cheks closely and continue sliding scale along with long-acting is patient is maintained on IV steroids along with bronchodilators and breathing inhalational treatments and will continue. Pulmonary is following closely. Will continue to monitor vital signs and labs closely and repeat a.m. labs. Due to multiple complex medical issues, prognosis is guarded. Further recommendations to follow.
[2020-04-22 15:52] LABS: Glucose,Whole Blood 162 mg/dL (75-99)
[2020-04-22 20:05] LABS: Glucose,Whole Blood 214 mg/dL (75-99)
[2020-04-22] MEDS: ATORVASTATIN 10 MG TAB PO SCH (20:15)
[2020-04-22] MEDS: MONTELUKAST 10 MG TAB PO SCH (20:15)
[2020-04-22 23:23] LABS: Glucose,Whole Blood 224 mg/dL (75-99)
[2020-04-23] MEDS: ARTIFICIAL TEARS-HYPROMELLOSE DROPS 15 ML BTL BOTH EYES SCH ×5 (03:31→20:10)
[2020-04-23 03:41] LABS: Glucose,Whole Blood 185 mg/dL (75-99)
[2020-04-23] MEDS: INSULIN ASPART (NovoLOG) 100 UNIT/ML VIAL SQ SCH ×5 (03:43→20:04)
[2020-04-23] MEDS: IPRATROPIUM-ALBUTEROL 3 ML NEB INHALATION SCH ×6 (03:44→23:31)
[2020-04-23 04:08] LABS: HCT 32.3 % (34.0-46.0); HGB 10.8 gm/dL (11.4-16.0); MCH 31.4 pg (25.0-35.0); MCHC 33.4 g/dL (31.0-37.0); Mean Platelet Volume 10.1; Platelet Count 256 k/uL (150-450); RBC 3.43 m/uL (3.80-5.40); RDW 14.7 % (11.5-15.5)
[2020-04-23 04:17] LABS: ALT 50 U/L (4-34); AST 40 U/L (14-36); African American GFR (CKD) >90 (>60 ml/min/1.73 sqM); Albumin 2.7 g/dL (3.5-5.0); Alkaline Phosphatase 106 U/L (38-126); Anion Gap 6 mmol/L; Blood Urea Nitrogen 38 mg/dL (7-17); Calcium 8.5 mg/dL (8.4-10.2); Carbon Dioxide 30 mmol/L (22-30); Chloride 111 mmol/L (98-107); Glucose 184 mg/dL (74-99); Non-African American GFR(CKD) >90 (>60 ml/min/1.73 sqM); Potassium 4.7 mmol/L (3.5-5.1); Sodium 147 mmol/L (137-145); Total Bilirubin 0.5 mg/dL (0.2-1.3); Total Protein 5.2 g/dL (6.3-8.2)
[2020-04-23 04:37] LABS: C Reactive Protein 38.2 mg/L (<10.0); Magnesium 2.2 mg/dL (1.6-2.3)
[2020-04-23 05:37] LABS: ABG Base Excess 7.7 mmol/L; ABG HCO3 31 mmol/L (21-25); ABG Oxygen Saturation 98.4 % (94-97); ABG PCO2 43 mmHg (35-45); ABG PH 7.47 (7.35-7.45); ABG PO2 100 mmHg (83-108); ABG TCO2 33 mmol/L (19-24); Allen Test Performed? Yes
--- NOTE | 2020-04-23 05:44 | XR ---
EXAMINATION TYPE: XR chest 1V portable DATE OF EXAM: 04/23/2020 Comparison: 04/22/2020 Clinical History: 44-year-old female follow-up pna Findings: ET tube tip at the level of the medial clavicular heads. Left CVC tip is in the upper right atrium. N G tube courses below the diaphragm. Heart remains upper limits of normal in size. Continued bilateral diffuse airspace opacities, right greater than left. No sizable effusion. Impression: Continued bilateral airspace disease, right greater than left, without significant change.
[2020-04-23 06:13] LABS: Band Neutrophils % 9 %; Metamyelocytes % 2 %; Monocytes # (M) 0.16 k/uL (0-1.0); Myelocytes # (M) 0.16 k/uL (0); Myelocytes % 1 %; Neutrophils % (M) 79 %; Nucleated Red Blood Cells 1 /100 WBC (0-0); Total Cells Counted 200
[2020-04-23 06:14] LABS: Lymphocytes # (M) 1.56 k/uL (1.0-4.8); Metamyelocytes # (M) 0.31 k/uL (0); WBC 15.6 k/uL (3.8-10.6)
[2020-04-23 06:16] LABS: Large Platelets Present
[2020-04-23 06:17] LABS: Anisocytosis (M) Present; Polychromasia Present
[2020-04-23] MEDS: INSULIN DETEMIR (LEVEMIR) 100 UNIT/ML SYR SQ SCH (06:56)
[2020-04-23] MEDS: SODIUM CHLORIDE 0.45% 1,000 ML IV SCH (07:00)
[2020-04-23] MEDS: BUDESONIDE 1 MG/2 ML NEBU INHALATION SCH ×2 (07:42→19:53)
[2020-04-23] MEDS: FORMOTEROL FUMARATE 20 MCG/2 ML NEBU INHALATION SCH ×2 (07:42→19:53)
--- NOTE | 2020-04-23 07:54 | P.PN ---
Subjective Progress Note Date: 04/23/20 On 05/12/2020 I'm seeing this patient in follow-up in the intensive care unit. This patient has been diagnosed having Legionella pneumonia with extensive bilateral consolidation acute hypoxic respiratory failure, requiring intubation mechanical ventilation as of 04/19/2020. The patient currently is on mechanical ventilator on assist control mode at the rate of 34 with a tidal volume of 350 and FiO2 of 40% and a PEEP of 15. The blood gases from today shows a pH of 7.42 with a pCO2 of 42 and pO2 of 92. Chest x-ray continues to show improvement in the right lung consolidation there is also improvement in her left lower lobe consolidation. ET tube is in a good location. White cell count the 19.3 and is down. The patient is hemodynamically stable and the patient is on no pressors. The patient is currently on propofol sedated at the rate of 50 mcg/kg per minute. IV fluids is running at 75 mL an hour. She has a triple-lumen catheter in her left subclavian and she has also an arterial line in her right upper extremity. No signs of any fluid overload. She is receiving enteral feeding for nutritional support and she is currently on vital high protein at the rate of 20 mL an hour. Antibiotic coverage includes a combination of Zithromax and Rocephin. She is also on IV Solu Medrol 40 mg every 8 hours. Fluid balance +1 L, and the COVID 19 testing was negative. Liver function tests are improving and his CPK was 346 and time of admission. The peak airway pressure is around 34 static airway pressure is 29. On 04/23/2020 I'm seeing the patient will follow-up. This patient has a severe Legionella pneumonia the patient is currently on Levaquin. She also has hypoxic respiratory failure and she is on a mechanical ventilator on assist control mode with a tidal volume of 350 and FiO2 of 40% with a PEEP of 13 the follow-up chest x-ray from today is essentially looking stable with some ongoing improvement in the right lower lobe and the left lung consolidation is also improving. ET tube is in a good location. The patient has a peak airway pressure of around 31 anesthetic pressures also 29. The blood gases showed a pH of 7.47 with a pCO2 of 43 and pO2 100.. The neck fluid balance was -1.6 L over the past 24 hours. The patient was given a dose of Lasix 40 mg IV push 1 and the sodium level today is at 147 which is essentially the same as yesterday with a BUN of 38 and a creatinine of 0.58. She is afebrile. She is hemodynamically stable on no pressors. She is receiving enteral feeding for nutritional support in the form of vital high protein at the rate of 26 mL an hour and this is her goal. He is also receiving 200 mL of water flushes and her IV fluids are running at KVO. She is on propofol running at 50 g/kg per minute. Objective - Vital Signs Vital signs: Vital Signs Temp 98.5 F 04/23/20 04:00 Pulse 55 L 04/23/20 07:00 Resp 23 04/23/20 07:00 BP 151/77 04/23/20 07:00 Pulse Ox 96 04/23/20 07:00 Intake & Output 04/22/20 04/23/20 04/23/20 18:59 06:59 18:59 Intake Total 6783.816 9645.279 42 Output Total 2980 1225 75 Balance -1585.115 -94.721 -33 Weight 95.6 kg 95.6 kg Intake: IV 423 176 16 0.45 75 Levofloxacin 750Mg-D5w 150 Pmx 750 mg In Dextrose/ Water 1 150ml.bag @ 100 mls/hr IVPB Q24H [facility] Rx#: [id number] Pressure bag 78 66 6 Sodium Chloride 0.45% 1, 120 110 10 000 ml @ 10 mls/hr IV . Q24H [facility] Rx#:[id number] Intake, IV Titration 283.885 268.279 Amount propofoL 1,000 mg In 283.885 268.279 Empty Bag 1 bag @ Titrate IV .Q0M [facility] Rx#: [id number] Tube Feeding 288 286 26 Other 400 400 Output: Urine 2980 1225 75 Other: Voiding Method Indwelling Catheter Indwelling Catheter ABP, PAP, CO, CI - Last Documented Arterial Blood Pressure 158/73 - Exam No acute distress, currently sedated and paralyzed, she has an orally placed endotracheal tube and NG tube. Head exam was generally normal. There was no scleral icterus or corneal arcus. Mucous membranes were moist. HEENT examination is grossly unremarkable. Neck supple full range of motion. No adenopathy or thyromegaly. Neck veins are flat. Cardiac exam revealed the PMI to be normally situated and sized. The rhythm was regular and no extrasystoles were noted during several minutes of auscultation. The first and second heart sounds were normal and physiologic splitting of the second heart sound was noted. There were no murmurs, rubs, clicks, or gallops. Pulmonary examination reveals diffuse coarse rhonchi. Breath sounds are equal. No wheezes or crackles. Abdomen soft. Sounds are heard. No masses or tenderness. Extremities are intact. No cyanosis clubbing or edema. Examination of the skin revealed no evidence of significant rashes, suspicious appearing nevi or other concerning lesions. Neurologic examination cannot be adequately assessed. - Labs CBC & Chem 7: 04/23/20 03:35 04/23/20 03:35 Labs: Abnormal Lab Results - Last 24 Hours (Table) 04/22/20 04/22/20 04/22/20 Range/Units 03:55 07:52 11:48 WBC (3.8-10.6) k/uL RBC (3.80-5.40) m/uL Hgb (11.4-16.0) gm/dL Hct (34.0-46.0) % Neutrophils # (Manual) (1.3-7.7) k/uL Metamyelocytes # (Man) (0) k/uL Myelocytes # (Manual) (0) k/uL Nucleated RBCs (0-0) /100 WBC D-Dimer (<0.60) mg/L FEU ABG pH (7.35-7.45) ABG HCO3 (21-25) mmol/L ABG Total CO2 (19-24) mmol/L ABG O2 Saturation (94-97) % Sodium (137-145) mmol/L Chloride (98-107) mmol/L BUN (7-17) mg/dL Glucose (74-99) mg/dL POC Glucose (mg/dL) 221 H 153 H (75-99) mg/dL Ferritin 1279.3 H (10.0-291.0) ng/mL AST (14-36) U/L ALT (4-34) U/L Lactate Dehydrogenase (313-618) U/L Creatine Kinase (30-135) U/L C-Reactive Protein (<10.0) mg/L Total Protein (6.3-8.2) g/dL Albumin (3.5-5.0) g/dL 04/22/20 04/22/20 04/22/20 Range/Units 15:50 20:04 23:22 WBC (3.8-10.6) k/uL RBC (3.80-5.40) m/uL Hgb (11.4-16.0) gm/dL Hct (34.0-46.0) % Neutrophils # (Manual) (1.3-7.7) k/uL Metamyelocytes # (Man) (0) k/uL Myelocytes # (Manual) (0) k/uL Nucleated RBCs (0-0) /100 WBC D-Dimer (<0.60) mg/L FEU ABG pH (7.35-7.45) ABG HCO3 (21-25) mmol/L ABG Total CO2 (19-24) mmol/L ABG O2 Saturation (94-97) % Sodium (137-145) mmol/L Chloride (98-107) mmol/L BUN (7-17) mg/dL Glucose (74-99) mg/dL POC Glucose (mg/dL) 162 H 214 H 224 H (75-99) mg/dL Ferritin (10.0-291.0) ng/mL AST (14-36) U/L ALT (4-34) U/L Lactate Dehydrogenase (313-618) U/L Creatine Kinase (30-135) U/L C-Reactive Protein (<10.0) mg/L Total Protein (6.3-8.2) g/dL Albumin (3.5-5.0) g/dL 04/23/20 04/23/20 04/23/20 Range/Units 03:35 03:35 03:35 WBC 15.6 H (3.8-10.6) k/uL RBC 3.43 L (3.80-5.40) m/uL Hgb 10.8 L (11.4-16.0) gm/dL Hct 32.3 L (34.0-46.0) % Neutrophils # (Manual) 13.70 H (1.3-7.7) k/uL Metamyelocytes # (Man) 0.31 H (0) k/uL Myelocytes # (Manual) 0.16 H (0) k/uL Nucleated RBCs 1 H (0-0) /100 WBC D-Dimer 1.51 H (<0.60) mg/L FEU ABG pH (7.35-7.45) ABG HCO3 (21-25) mmol/L ABG Total CO2 (19-24) mmol/L ABG O2 Saturation (94-97) % Sodium (137-145) mmol/L Chloride (98-107) mmol/L BUN (7-17) mg/dL Glucose (74-99) mg/dL POC Glucose (mg/dL) (75-99) mg/dL Ferritin (10.0-291.0) ng/mL AST (14-36) U/L ALT (4-34) U/L Lactate Dehydrogenase 1041 H (313-618) U/L Creatine Kinase 25 L (30-135) U/L C-Reactive Protein 38.2 H (<10.0) mg/L Total Protein (6.3-8.2) g/dL Albumin (3.5-5.0) g/dL 04/23/20 04/23/20 04/23/20 Range/Units 03:35 03:39 05:35 WBC (3.8-10.6) k/uL RBC (3.80-5.40) m/uL Hgb (11.4-16.0) gm/dL Hct (34.0-46.0) % Neutrophils # (Manual) (1.3-7.7) k/uL Metamyelocytes # (Man) (0) k/uL Myelocytes # (Manual) (0) k/uL Nucleated RBCs (0-0) /100 WBC D-Dimer (<0.60) mg/L FEU ABG pH 7.47 H (7.35-7.45) ABG HCO3 31 H (21-25) mmol/L ABG Total CO2 33 H (19-24) mmol/L ABG O2 Saturation 98.4 H (94-97) % Sodium 147 H (137-145) mmol/L Chloride 111 H (98-107) mmol/L BUN 38 H (7-17) mg/dL Glucose 184 H (74-99) mg/dL POC Glucose (mg/dL) 185 H (75-99) mg/dL Ferritin (10.0-291.0) ng/mL AST 40 H (14-36) U/L ALT 50 H (4-34) U/L Lactate Dehydrogenase (313-618) U/L Creatine Kinase (30-135) U/L C-Reactive Protein (<10.0) mg/L Total Protein 5.2 L (6.3-8.2) g/dL Albumin 2.7 L (3.5-5.0) g/dL Microbiology - Last 24 Hours (Table) 04/17/20 10:58 Blood Culture - Preliminary Blood No Growth after 120 hours 04/17/20 11:02 Blood Culture - Preliminary Blood No Growth after 120 hours Assessment and Plan Plan: 1 Acute hypoxemic respiratory failure, with intubation and mechanical ventilation on 04/19/2020. The patient is showing signs of improvement. Her oxygenation is gradually improving. She remains on a mechanical ventilator. Her chest x-ray is showing also improvement in the bilateral consolidations specially the consolidation on the right. As such, the necessity ventilator ch anges will be done. The chest x-ray was reviewed. Blood gases was reviewed. Patient remains intubated on a mechanical ventilator and she remains sedated regarding her hypoxic respiratory failure secondary to Legionella pneumonia. 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 The patient is afebrile. The patient is hemodynamically stable, the patient remains intubated on a mechanical ventilator. 3 Acute hypoxemic respiratory failure secondary to extensive consolidative pneumonia bilaterally. 4 History of asthma. 5 History of hypertension. 6 History of hyperlipidemia. 7 History of chronic tobacco use with nicotine addiction, having smoked for 32 years, rule out COPD. 8 Mild metabolic acidosis. 9 acute kidney injury , recovered 10 acute leukocytosis secondary to above Plan: continue Levaquin 750 mg IV every 24 hours Continue propofol and titrate the dose down for a lower degree of sedation and address scale of 0 to -1 The PEEP down to 10 and also drop the respiratory rate down to 24 and increase the tidal volume of 400 Continue enteral feeding for nutritional support vital high protein Lovenox for DVT prophylaxis Not ready for weaning yet. Nevertheless, the patient continues to show signs of improvement Condition is critical. There is a high mortality risk because of an extensive pneumonia and sepsis secondary to Legionella pneumonia. Levemir 20 units daily along with slight scale coverage IV Solu-Medrol at a dose of 40 mg every 8 hours Family will be updated and the patient will be kept in ICU for now Critically care evaluation that was done more than 30 min Time with Patient: Greater than 30
[2020-04-23] MEDS: HYDROmorphone 1 MG/ML 1 ML SYRINGE IVP PRN ×5 (08:12→22:17)
[2020-04-23] MEDS: methylPREDNISolone SOD SUCCI 40 MG/ML 1 ML VIAL IV SCH ×2 (08:12→16:18)
[2020-04-23 08:20] LABS: Glucose,Whole Blood 176 mg/dL (75-99)
[2020-04-23] MEDS: LEVOFLOXACIN 750MG-D5W PMX 750 MG in DEXTROSE/WATER 1 150ML.BAG IVPB SCH (08:22)
[2020-04-23] MEDS: FAMOTIDINE 20 MG TAB PO SCH (08:48)
[2020-04-23] MEDS: CHOLECALCIFEROL 25 MCG (1000 IU) TABLET PO SCH (08:48)
[2020-04-23] MEDS: ASCORBIC ACID 500 MG TAB PO SCH ×2 (08:48→20:04)
[2020-04-23] MEDS: ZINC SULFATE 220 MG CAP PO SCH (08:48)
[2020-04-23] MEDS: ENOXAPARIN 40 MG/0.4 ML SYRINGE SQ SCH (08:49)
[2020-04-23] MEDS: amLODIPine 5 MG TAB PO SCH (08:49)
[2020-04-23] MEDS: CHLORHEXIDINE GLUCONATE 15 ML CUP MUCOUS MEM SCH ×2 (08:49→20:04)
[2020-04-23 10:15] LABS: Ferritin 844.1 ng/mL (10.0-291.0)
[2020-04-23 11:32] LABS: ABG Base Excess 7.5 mmol/L; ABG HCO3 31 mmol/L (21-25); ABG Oxygen Saturation 98.5 % (94-97); ABG PCO2 45 mmHg (35-45); ABG PH 7.45 (7.35-7.45); ABG PO2 107 mmHg (83-108); ABG TCO2 33 mmol/L (19-24)
[2020-04-23 11:33] LABS: Allen Test Performed? no
[2020-04-23 11:34] LABS: Glucose,Whole Blood 165 mg/dL (75-99)
--- NOTE | 2020-04-23 15:29 | P.PN ---
Subjective Progress Note Date: 04/23/20 This is a 44-year-old the pleasant female came in with compensative for shortness of breath. Generalized body aches and fever chills patient symptoms has been going on for about a week patient recently returned from [place] from [place] patient is a unaware of any exposure to sick people although patient was exposed to many people when she visited a [place]. Patient had a chest x- ray and a computed tomography scan of the chest which showed extensive consolidation of the right lung and some consolidation and infiltrate consistent with on the left side. Covid 19 PCR is still pending. Patient is presently on BiPAP patient is being admitted to intensive care unit 04/22/2020 Patient is seen and evaluated and follow-up continues to be closely monitored in the ICU. Patient is maintained on mechanical ventilation and is sedated. IV antibiotics transitioned to Levaquin and pulmonary is following closely. Chest x-ray today shows persistent bilateral multifocal multilobar infiltrates with no significant change from yesterday. White blood count slowly trending down at 19.3, sodium is 147, potassium is 4.5, current creatinine is 0.59. Blood sugars slightly elevated and will continue with sliding scale along with long-acting as patient is on IV steroids. Patient was positive for Legionella and urine and sputum cultures currently pending. 04/23/2020 Patient continues to be closely monitored in the intensive care unit and continues to be intubated and sedated on mechanical vent. Sedation has been decreased and patient able to follow simple commands although unable to wean at this time as chest x-ray continues to show bilateral airspace disease right greater than left without significant change from previous. Patient blood pressures slightly elevated and maintained on Norvasc and will continue. Blood sugars elevated and increased long-acting and will continue with sliding scale with Accu-Cheks every 4 hours. Patient is maintained on IV Levaquin and will continue. Pulmonary following closely. Patient's urine is positive for Legionella and per nursing staff [facility] has been informed of this finding. A she sputum culture preliminary showing presumptive Legionella species and per documentation on the microbiology report this was also sent to [facility] for confirmation. Patient has intermittent low-grade 100 fever. Blood count is trending down slowly at 15.6. D-dimer slowly trending down as well at 1.51. Sodium slightly elevated at 147 and patient is maintained on gentle IV hydration of sodium chloride 0.45. Review of systems: Unable to obtain due to her clinical condition patient is intubated Active Medications Acetaminophen (Acetaminophen Tab 325 Mg Tab) 650 mg PO Q4HR PRN PRN Reason: Fever and/or Mild Pain Last Admin: 04/18/20 23:52 Dose: 650 mg Documented by: Albuterol/Ipratropium (Ipratropium-Albuterol 3 Ml Neb) 3 ml INHALATION RT-Q4H [facility] Last Admin: 04/23/20 11:55 Dose: 3 ml Documented by: Albuterol/Ipratropium (Ipratropium-Albuterol 3 Ml Neb) 3 ml INHALATION RT-Q2H PRN PRN Reason: Shortness Of Breath Or Wheezing Amlodipine Besylate (Amlodipine 5 Mg Tab) 5 mg PO DAILY [facility] Last Admin: 04/23/20 08:49 Dose: 5 mg Documented by: Artificial Tears (Artificial Tears-Hypromellose Drops 15 Ml Btl) 2 drops BOTH EYES Q4HR [facility] Last Admin: 04/23/20 11:47 Dose: 2 drops Documented by: Ascorbic Acid (Ascorbic Acid 500 Mg Tab) 500 mg PO BID [facility] Last Admin: 04/23/20 08:48 Dose: 500 mg Documented by: Atorvastatin Calcium (Atorvastatin 10 Mg Tab) 10 mg PO HS [facility] Last Admin: 04/22/20 20:15 Dose: 10 mg Documented by: Budesonide (Budesonide 1 Mg/2 Ml Nebu) 1 mg INHALATION RT-BID [facility] Last Admin: 04/23/20 07:42 Dose: 1 mg Documented by: Chlorhexidine Gluconate (Chlorhexidine Gluconate 15 Ml Cup) 15 ml MUCOUS MEM BID [facility] Last Admin: 04/23/20 08:49 Dose: 15 ml Documented by: Cholecalciferol (Cholecalciferol 25 Mcg (1000 Iu) Tablet) 25 mcg PO DAILY [facility] Last Admin: 04/23/20 08:48 Dose: 25 mcg Documented by: Enoxaparin Sodium (Enoxaparin 40 Mg/0.4 Ml Syringe) 40 mg SQ DAILY [facility] Last Admin: 04/23/20 08:49 Dose: 40 mg Documented by: Famotidine (Famotidine 20 Mg Tab) 20 mg PO DAILY [facility] Last Admin: 04/23/20 08:48 Dose: 20 mg Documented by: Formoterol Fumarate (Formoterol Fumarate 20 Mcg/2 Ml Nebu) 20 mcg INHALATION RT-BID [facility] Last Admin: 04/23/20 07:42 Dose: 20 mcg Documented by: Hydromorphone HCl (Hydromorphone 1 Mg/Ml 1 Ml Syringe) 1 mg IVP Q2HR PRN PRN Reason: Severe Pain Last Admin: 04/23/20 13:35 Dose: 1 mg Documented by: Hydromorphone HCl (Hydromorphone 0.5 Mg/0.5 Ml Syringe) 0.5 mg IVP Q2HR PRN PRN Reason: Moderate Pain Last Admin: 04/22/20 21:43 Dose: 0.5 mg Documented by: Propofol 1,000 mg/ IV Solution 100 mls @ 0 mls/hr IV .Q0M [facility]; Protocol Last Admin: 04/23/20 14:47 Dose: 40 mcg/kg/min, 22.944 mls/hr Documented by: Levofloxacin 750 mg/ IV (Solution) 150 mls @ 100 mls/hr IVPB Q24H [facility] Last Admin: 04/23/20 08:22 Dose: 100 mls/hr Documented by: Sodium Chloride (Saline 0.45%) 1,000 mls @ 10 mls/hr IV .Q24H [facility] Last Admin: 04/23/20 07:00 Dose: 10 mls/hr Documented by: Insulin Aspart (Insulin Aspart (Novolog) 100 Unit/Ml Vial) 0 unit SQ Q4HR [facility]; Protocol Last Admin: 04/23/20 11:45 Dose: 3 unit Documented by: Insulin Detemir (Insulin Detemir (Levemir) 100 Unit/Ml Syr) 20 unit SQ DAILY@0700 [facility] Methylprednisolone Sodium Succinate (Methylprednisolone Sod Succi 40 Mg/Ml 1 Ml Vial) 40 mg IV Q8HR [facility] Last Admin: 04/23/20 08:12 Dose: 40 mg Documented by: Miscellaneous Information (Potassium Replacement Protocol 1 Each Misc) 1 each MISCELLANE DAILY PRN; Protocol PRN Reason: Per Protocol Montelukast Sodium (Montelukast 10 Mg Tab) 10 mg PO HS [facility] Last Admin: 04/22/20 20:15 Dose: 10 mg Documented by: Naloxone HCl (Naloxone 0.4 Mg/Ml 1 Ml Vial) 0.2 mg IV Q2M PRN PRN Reason: Opioid Reversal Zinc Sulfate (Zinc Sulfate 220 Mg Cap) 220 mg PO DAILY [facility] Last Admin: 04/23/20 08:48 Dose: 220 mg Documented by: Objective - Vital Signs Vital signs: Vital Signs Temp 99.2 F 04/23/20 08:00 Pulse 64 04/23/20 10:00 Resp 21 04/23/20 10:00 BP 146/73 04/23/20 10:00 Pulse Ox 96 04/23/20 10:00 Intake & Output 04/22/20 04/23/20 04/23/20 18:59 06:59 18:59 Intake Total 9211.291 7242.279 368 Output Total 2980 1225 355 Balance -1585.115 -94.721 13 Weight 95.6 kg 95.6 kg Intake: IV 423 176 214 0.45 75 Levofloxacin 750Mg-D5w 150 150 Pmx 750 mg In Dextrose/ Water 1 150ml.bag @ 100 mls/hr IVPB Q24H [facility] Rx#: [id number] Pressure bag 78 66 24 Sodium Chloride 0.45% 1, 120 110 40 000 ml @ 10 mls/hr IV . Q24H [facility] Rx#:[id number] Intake, IV Titration 283.885 268.279 Amount propofoL 1,000 mg In 283.885 268.279 Empty Bag 1 bag @ Titrate IV .Q0M [facility] Rx#: [id number] Tube Feeding 288 286 104 Other 400 400 50 Output: Urine 2980 1225 355 Other: Voiding Method Indwelling Catheter Indwelling Catheter Indwelling Catheter ABP, PAP, CO, CI - Last Documented Arterial Blood Pressure 176/83 - Exam GENERAL: Patient is currently intubated and sedated. Temp is 99.2F, pulse is 58, respirations are 24, blood pressure is 144/71, oxygen saturation is 98% on mechanical ventilation with an FiO2 of 40 HEENT: Pupils are round and equally reacting to light. EOMI. No scleral icterus. No conjunctival pallor. Normocephalic, atraumatic. No pharyngeal erythema. No thyromegaly. NG tube noted with tube feedings CARDIOVASCULAR: S1 and S2 present. No murmurs, rubs, or gallops. PULMONARY: Diminished breath sounds bilaterally with some scattered rhonchi noted ABDOMEN: Soft, nontender, nondistended, normoactive bowel sounds. No palpable organomegaly. MUSCULOSKELETAL: No joint swelling or deformity. EXTREMITIES: No cyanosis, clubbing, or pedal edema. NEUROLOGICAL: Patient is sedated SKIN: No rashes. - Labs CBC & Chem 7: 04/23/20 03:35 04/23/20 03:35 Labs: Abnormal Lab Results - Last 24 Hours (Table) 04/22/20 04/22/20 04/22/20 Range/Units 11:48 15:50 20:04 WBC (3.8-10.6) k/uL RBC (3.80-5.40) m/uL Hgb (11.4-16.0) gm/dL Hct (34.0-46.0) % Neutrophils # (Manual) (1.3-7.7) k/uL Metamyelocytes # (Man) (0) k/uL Myelocytes # (Manual) (0) k/uL Nucleated RBCs (0-0) /100 WBC D-Dimer (<0.60) mg/L FEU ABG pH (7.35-7.45) ABG HCO3 (21-25) mmol/L ABG Total CO2 (19-24) mmol/L ABG O2 Saturation (94-97) % Sodium (137-145) mmol/L Chloride (98-107) mmol/L BUN (7-17) mg/dL Glucose (74-99) mg/dL POC Glucose (mg/dL) 153 H 162 H 214 H (75-99) mg/dL Ferritin (10.0-291.0) ng/mL AST (14-36) U/L ALT (4-34) U/L Lactate Dehydrogenase (313-618) U/L Creatine Kinase (30-135) U/L C-Reactive Protein (<10.0) mg/L Total Protein (6.3-8.2) g/dL Albumin (3.5-5.0) g/dL 04/22/20 04/23/20 04/23/20 Range/Units 23:22 03:35 03:35 WBC (3.8-10.6) k/uL RBC (3.80-5.40) m/uL Hgb (11.4-16.0) gm/dL Hct (34.0-46.0) % Neutrophils # (Manual) (1.3-7.7) k/uL Metamyelocytes # (Man) (0) k/uL Myelocytes # (Manual) (0) k/uL Nucleated RBCs (0-0) /100 WBC D-Dimer 1.51 H (<0.60) mg/L FEU ABG pH (7.35-7.45) ABG HCO3 (21-25) mmol/L ABG Total CO2 (19-24) mmol/L ABG O2 Saturation (94-97) % Sodium (137-145) mmol/L Chloride (98-107) mmol/L BUN (7-17) mg/dL Glucose (74-99) mg/dL POC Glucose (mg/dL) 224 H (75-99) mg/dL Ferritin 844.1 H (10.0-291.0) ng/mL AST (14-36) U/L ALT (4-34) U/L Lactate Dehydrogenase 1041 H (313-618) U/L Creatine Kinase 25 L (30-135) U/L C-Reactive Protein 38.2 H (<10.0) mg/L Total Protein (6.3-8.2) g/dL Albumin (3.5-5.0) g/dL 04/23/20 04/23/20 04/23/20 Range/Units 03:35 03:35 03:39 WBC 15.6 H (3.8-10.6) k/uL RBC 3.43 L (3.80-5.40) m/uL Hgb 10.8 L (11.4-16.0) gm/dL Hct 32.3 L (34.0-46.0) % Neutrophils # (Manual) 13.70 H (1.3-7.7) k/uL Metamyelocytes # (Man) 0.31 H (0) k/uL Myelocytes # (Manual) 0.16 H (0) k/uL Nucleated RBCs 1 H (0-0) /100 WBC D-Dimer (<0.60) mg/L FEU ABG pH (7.35-7.45) ABG HCO3 (21-25) mmol/L ABG Total CO2 (19-24) mmol/L ABG O2 Saturation (94-97) % Sodium 147 H (137-145) mmol/L Chloride 111 H (98-107) mmol/L BUN 38 H (7-17) mg/dL Glucose 184 H (74-99) mg/dL POC Glucose (mg/dL) 185 H (75-99) mg/dL Ferritin (10.0-291.0) ng/mL AST 40 H (14-36) U/L ALT 50 H (4-34) U/L Lactate Dehydrogenase (313-618) U/L Creatine Kinase (30-135) U/L C-Reactive Protein (<10.0) mg/L Total Protein 5.2 L (6.3-8.2) g/dL Albumin 2.7 L (3.5-5.0) g/dL 04/23/20 04/23/20 Range/Units 05:35 08:19 WBC (3.8-10.6) k/uL RBC (3.80-5.40) m/uL Hgb (11.4-16.0) gm/dL Hct (34.0-46.0) % Neutrophils # (Manual) (1.3-7.7) k/uL Metamyelocytes # (Man) (0) k/uL Myelocytes # (Manual) (0) k/uL Nucleated RBCs (0-0) /100 WBC D-Dimer (<0.60) mg/L FEU ABG pH 7.47 H (7.35-7.45) ABG HCO3 31 H (21-25) mmol/L ABG Total CO2 33 H (19-24) mmol/L ABG O2 Saturation 98.4 H (94-97) % Sodium (137-145) mmol/L Chloride (98-107) mmol/L BUN (7-17) mg/dL Glucose (74-99) mg/dL POC Glucose (mg/dL) 176 H (75-99) mg/dL Ferritin (10.0-291.0) ng/mL AST (14-36) U/L ALT (4-34) U/L Lactate Dehydrogenase (313-618) U/L Creatine Kinase (30-135) U/L C-Reactive Protein (<10.0) mg/L Total Protein (6.3-8.2) g/dL Albumin (3.5-5.0) g/dL Microbiology - Last 24 Hours (Table) 04/17/20 10:58 Blood Culture - Preliminary Blood No Growth after 120 hours 04/17/20 11:02 Blood Culture - Preliminary Blood No Growth after 120 hours Assessment and Plan Assessment: -Acute hypoxic respiratory failure secondary to pneumonia with extensive consolidation of right lung requiring mechanical ventilation on 04/19/2020 -Legionella pneumonia as noted on urine culture along with presumptive Legionella preliminary showing in the sputum culture -Covid 19 ruled out, testing 2 was negative -Sepsis secondary to community-acquired pneumonia -Leukocytosis secondary to severe sepsis -hypertension -Elevated blood sugars: Most likely secondary to IV steroids and tube feedings -Hyperlipidemia -Tachycardia secondary to severe sepsis -Full code Recommendations and discussion: Recommend continue current medications, management, and symptomatic treatment. Patient currently on mechanical ventilation with sedation and not ready for attempts at weaning at this time. Sedation slightly decreased. Chest x-ray continues to show persistent infiltrates bilaterally with no significant change. Patient's antibiotics the form of Levaquin. Sputum Legionella showing presumptive on preliminary report at this time. [facility] informed per nursing staff and documented on microbiology report. Patient is positive for Legionella in the urine. Will continue monitor Accu-Cheks closely and continue sliding scale along with long-acting is patient is maintained on IV steroids along with bronchodilators and breathing inhalational treatments and will continue. Long-acting has been increased as blood sugars continue to be elevated. Pulmonary is following closely. Will continue to monitor vital signs and labs closely and repeat a.m. labs. Due to multiple complex medical issues, prognosis is guarded. Further recommendations to follow.
[2020-04-23 16:17] LABS: Glucose,Whole Blood 178 mg/dL (75-99)
[2020-04-23 20:03] LABS: Glucose,Whole Blood 191 mg/dL (75-99)
[2020-04-23] MEDS: MONTELUKAST 10 MG TAB PO SCH (20:04)
[2020-04-23] MEDS: ATORVASTATIN 10 MG TAB PO SCH (20:04)
[2020-04-24 00:06] LABS: Glucose,Whole Blood 190 mg/dL (75-99)
[2020-04-24] MEDS: methylPREDNISolone SOD SUCCI 40 MG/ML 1 ML VIAL IV SCH ×4 (00:10→23:59)
[2020-04-24] MEDS: INSULIN ASPART (NovoLOG) 100 UNIT/ML VIAL SQ SCH ×7 (00:10→23:59)
[2020-04-24] MEDS: ARTIFICIAL TEARS-HYPROMELLOSE DROPS 15 ML BTL BOTH EYES SCH ×3 (00:10→09:17)
[2020-04-24] MEDS: HYDROmorphone 1 MG/ML 1 ML SYRINGE IVP PRN ×2 (01:35→05:21)
[2020-04-24] MEDS: IPRATROPIUM-ALBUTEROL 3 ML NEB INHALATION SCH ×5 (03:16→21:30)
[2020-04-24] MEDS: SODIUM CHLORIDE 0.45% 1,000 ML IV SCH (03:56)
[2020-04-24 04:06] LABS: Glucose,Whole Blood 179 mg/dL (75-99)
[2020-04-24 04:28] LABS: African American GFR (CKD) >90 (>60 ml/min/1.73 sqM); Anion Gap 5 mmol/L; Blood Urea Nitrogen 34 mg/dL (7-17); Calcium 8.4 mg/dL (8.4-10.2); Carbon Dioxide 33 mmol/L (22-30); Chloride 106 mmol/L (98-107); Glucose 177 mg/dL (74-99); Non-African American GFR(CKD) >90 (>60 ml/min/1.73 sqM); Potassium 4.6 mmol/L (3.5-5.1); Sodium 144 mmol/L (137-145)
[2020-04-24 04:33] LABS: Basophils % (A) 0 %; Eosinophils % (A) 0 %; HCT 41.4 % (34.0-46.0); HGB 13.6 gm/dL (11.4-16.0); Lymphocytes # (A) 1.1 k/uL (1.0-4.8); Lymphocytes % (A) 10 %; MCHC 32.9 g/dL (31.0-37.0); MCV 94.2 fL (80.0-100.0); Mean Platelet Volume 9.5; Monocytes # (A) 0.5 k/uL (0-1.0); Monocytes % (A) 4 %; Neutrophils # (A) 9.5 k/uL (1.3-7.7); Neutrophils % (A) 85 %; Platelet Count 202 k/uL (150-450); RDW 14.6 % (11.5-15.5); WBC 11.3 k/uL (3.8-10.6)
[2020-04-24 05:15] LABS: ABG Base Excess 9.3 mmol/L; ABG HCO3 33 mmol/L (21-25); ABG Oxygen Saturation 96.7 % (94-97); ABG PCO2 48 mmHg (35-45); ABG PH 7.45 (7.35-7.45); ABG PO2 84 mmHg (83-108); ABG TCO2 35 mmol/L (19-24)
[2020-04-24 05:20] LABS: Allen Test Performed? no
--- NOTE | 2020-04-24 07:03 | P.PN ---
Subjective Progress Note Date: 04/24/20 On 05/12/2020 I'm seeing this patient in follow-up in the intensive care unit. This patient has been diagnosed having Legionella pneumonia with extensive bilateral consolidation acute hypoxic respiratory failure, requiring intubation mechanical ventilation as of 04/19/2020. The patient currently is on mechanical ventilator on assist control mode at the rate of 34 with a tidal volume of 350 and FiO2 of 40% and a PEEP of 15. The blood gases from today shows a pH of 7.42 with a pCO2 of 42 and pO2 of 92. Chest x-ray continues to show improvement in the right lung consolidation there is also improvement in her left lower lobe consolidation. ET tube is in a good location. White cell count the 19.3 and is down. The patient is hemodynamically stable and the patient is on no pressors. The patient is currently on propofol sedated at the rate of 50 mcg/kg per minute. IV fluids is running at 75 mL an hour. She has a triple-lumen catheter in her left subclavian and she has also an arterial line in her right upper extremity. No signs of any fluid overload. She is receiving enteral feeding for nutritional support and she is currently on vital high protein at the rate of 20 mL an hour. Antibiotic coverage includes a combination of Zithromax and Rocephin. She is also on IV Solu Medrol 40 mg every 8 hours. Fluid balance +1 L, and the COVID 19 testing was negative. Liver function tests are improving and his CPK was 346 and time of admission. The peak airway pressure is around 34 static airway pressure is 29. On 04/23/2020 I'm seeing the patient will follow-up. This patient has a severe Legionella pneumonia the patient is currently on Levaquin. She also has hypoxic respiratory failure and she is on a mechanical ventilator on assist control mode with a tidal volume of 350 and FiO2 of 40% with a PEEP of 13 the follow-up chest x-ray from today is essentially looking stable with some ongoing improvement in the right lower lobe and the left lung consolidation is also improving. ET tube is in a good location. The patient has a peak airway pressure of around 31 anesthetic pressures also 29. The blood gases showed a pH of 7.47 with a pCO2 of 43 and pO2 100.. The neck fluid balance was -1.6 L over the past 24 hours. The patient was given a dose of Lasix 40 mg IV push 1 and the sodium level today is at 147 which is essentially the same as yesterday with a BUN of 38 and a creatinine of 0.58. She is afebrile. She is hemodynamically stable on no pressors. She is receiving enteral feeding for nutritional support in the form of vital high protein at the rate of 26 mL an hour and this is her goal. He is also receiving 200 mL of water flushes and her IV fluids are running at KVO. She is on propofol running at 50 g/kg per minute. On 04/24/2020 I'm seeing the patient for a follow-up. She is doing well. No specific issues overnight. She remains on a mechanical ventilator. On today's evaluation, the patient is an assist-control mode with a rate of 24, tidal volume of 400 with a PEEP of 6 and FiO2 of 40%. The chest x-ray shows some infiltration of the lung bases. There is significant clearing of the vital pulmonary infiltrates. ET tube is in a good location. OG tube is in a good location. The blood gases showed a pH of 7.45 with a pCO2 of 48 and pO2 of 84. White cell count is at 11.3 which is lower compared to yesterday and the patient's renal function test is also within normal limits. The fluid balance over the past 24 hours is -1.6 L as the patient was given diuretics yesterday in the form of Lasix. Currently she is on Levaquin regarding her Legionella pneumonia. She is on IV Solu-Medrol. She is on bronchodilators. She is on h arjun-normal saline at the rate of 10 mL an hour which is running at KVO and this morning she is sedated with propofol running at 40 mcg/kg per minute. The patient has no other issues for now. Note that the sputum analysis also came back positive for Legionella. A sedation holiday will be given to her today and assess her candidacy for further weaning. Objective - Vital Signs Vital signs: Vital Signs Temp 98.5 F 04/24/20 04:00 Pulse 51 L 04/24/20 06:00 Resp 24 04/24/20 06:00 BP 153/79 04/24/20 06:00 Pulse Ox 95 04/24/20 06:00 Intake & Output 04/23/20 04/23/20 04/24/20 06:59 18:59 06:59 Intake Total 0890.611 4815.611 1154.336 Output Total 1225 1430 1255 Balance -94.721 -417.389 -100.664 Weight 95.6 kg 95.3 kg Intake: IV 176 342 192 Levofloxacin 750Mg-D5w 150 Pmx 750 mg In Dextrose/ Water 1 150ml.bag @ 100 mls/hr IVPB Q24H [facility] Rx#: [id number] Pressure bag 66 72 72 Sodium Chloride 0.45% 1, 110 120 120 000 ml @ 10 mls/hr IV . Q24H [facility] Rx#:[id number] Intake, IV Titration 268.279 248.611 276.336 Amount propofoL 1,000 mg In 268.279 248.611 276.336 Empty Bag 1 bag @ Titrate IV .Q0M [facility] Rx#: [id number] Tube Feeding 286 312 286 Other 400 110 400 Output: Urine 1225 1430 1255 Other: Voiding Method Indwelling Catheter Indwelling Catheter Indwelling Catheter ABP, PAP, CO, CI - Last Documented Arterial Blood Pressure 155/67 - Exam No acute distress, currently sedated and paralyzed, she has an orally placed endotracheal tube and NG tube. Head exam was generally normal. There was no scleral icterus or corneal arcus. Mucous membranes were moist. HEENT examination is grossly unremarkable. Neck supple full range of motion. No adenopathy or thyromegaly. Neck veins are flat. Cardiac exam revealed the PMI to be normally situated and sized. The rhythm was regular and no extrasystoles were noted during several minutes of auscultation. The first and second heart sounds were normal and physiologic splitting of the second heart sound was noted. There were no murmurs, rubs, clicks, or gallops. Pulmonary examination reveals diffuse coarse rhonchi. Breath sounds are equal. No wheezes or crackles. Abdomen soft. Sounds are heard. No masses or tenderness. Extremities are intact. No cyanosis clubbing or edema. Examination of the skin revealed no evidence of significant rashes, suspicious appearing nevi or other concerning lesions. Neurologic examination cannot be adequately assessed. - Labs CBC & Chem 7: 04/24/20 04:05 04/24/20 04:05 Labs: Abnormal Lab Results - Last 24 Hours (Table) 04/23/20 04/23/2004/23/21 Range/Units 03:35 08:19 11:29 WBC (3.8-10.6) k/uL Neutrophils # (1.3-7.7) k/uL ABG pCO2 (35-45) mmHg ABG HCO3 31 H (21-25) mmol/L ABG Total CO2 33 H (19-24) mmol/L ABG O2 Saturation 98.5 H (94-97) % Carbon Dioxide (22-30) mmol/L BUN (7-17) mg/dL Creatinine (0.52-1.04) mg/dL Glucose (74-99) mg/dL POC Glucose (mg/dL) 176 H (75-99) mg/dL Ferritin 844.1 H (10.0-291.0) ng/mL 04/23/20 04/23/20 04/23/20 Range/Units 11:33 16:14 20:01 WBC (3.8-10.6) k/uL Neutrophils # (1.3-7.7) k/uL ABG pCO2 (35-45) mmHg ABG HCO3 (21-25) mmol/L ABG Total CO2 (19-24) mmol/L ABG O2 Saturation (94-97) % Carbon Dioxide (22-30) mmol/L BUN (7-17) mg/dL Creatinine (0.52-1.04) mg/dL Glucose (74-99) mg/dL POC Glucose (mg/dL) 165 H 178 H 191 H (75-99) mg/dL Ferritin (10.0-291.0) ng/mL 04/24/20 04/24/20 04/24/20 Range/Units 00:05 04:05 04:05 WBC 11.3 H (3.8-10.6) k/uL Neutrophils # 9.5 H (1.3-7.7) k/uL ABG pCO2 (35-45) mmHg ABG HCO3 (21-25) mmol/L ABG Total CO2 (19-24) mmol/L ABG O2 Saturation (94-97) % Carbon Dioxide 33 H (22-30) mmol/L BUN 34 H (7-17) mg/dL Creatinine 0.45 L (0.52-1.04) mg/dL Glucose 177 H (74-99) mg/dL POC Glucose (mg/dL) 190 H (75-99) mg/dL Ferritin (10.0-291.0) ng/mL 04/24/20 04/24/20 Range/Units 04:05 05:12 WBC (3.8-10.6) k/uL Neutrophils # (1.3-7.7) k/uL ABG pCO2 48 H (35-45) mmHg ABG HCO3 33 H (21-25) mmol/L ABG Total CO2 35 H (19-24) mmol/L ABG O2 Saturation (94-97) % Carbon Dioxide (22-30) mmol/L BUN (7-17) mg/dL Creatinine (0.52-1.04) mg/dL Glucose (74-99) mg/dL POC Glucose (mg/dL) 179 H (75-99) mg/dL Ferritin (10.0-291.0) ng/mL Microbiology - Last 24 Hours (Table) 04/19/20 08:55 Legionella Culture - Preliminary Sputum 04/17/20 10:58 Blood Culture - Final Blood No Growth after 144 hours 04/17/20 11:02 Blood Culture - Final Blood No Growth after 144 hours Assessment and Plan Plan: 1 Acute hypoxemic respiratory failure, with intubation and mechanical ventilation on 04/19/2020. The patient has Legionella pneumonia/Legionnaires' disease with extensive by the pulmonary infiltrates treated adequately with appropriate antibiotics and the patient is currently on Levaquin. Clinically improving. Chest x-ray findings are also improving. Blood gases are stable. Oxygenation has improved and patient is currently on a 40% FiO2 with a PEEP of 6. I think she is ready for further weaning. I'm going to drop the respiratory rate down to 16 and drop the PEEP down to 5 and proceed with a sedation holiday we'll check weaning parameters. She is on Levaquin. She is on IV Solu-Medrol. Hemodynamically stable on no pressors. 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 The patient is afebrile. The patient is hemodynamically stable, the patient remains intubated on a mechanical ventilator. 3 Acute hypoxemic respiratory failure secondary to extensive consolidative pneumonia bilaterally. 4 History of asthma. 5 History of hypertension. 6 History of hyperlipidemia. 7 History of chronic tobacco use with nicotine addiction, having smoked for 32 years, rule out COPD. 8 Mild metabolic acidosis. 9 acute kidney injury , recovered 10 acute leukocytosis secondary to above, improved Plan: continue Levaquin 750 mg IV every 24 hours Doppler respiratory rate down to 60 and drop the PEEP down to 5 Give additional dose of Lasix 40 mg IV push 1 Stop sedation and check any parameters\assess candidacy for further weaning and give the patient is point is breathing trial if the weaning parameters are adequate and the mental status is appropriate. Blood sugars are stable and the patient is on Levemir insulin 20 units daily along with slight scale coverage hold tube feeds in anticipation for further weaning and possible extubation today Continue the rest of the supportive care. Discussed the findings with her . Condition is stable for now. We'll continue to follow. Family will be updated and the patient will be kept in ICU for now Critically care evaluation that was done more than 30 min Time with Patient: Greater than 30
[2020-04-24] MEDS ORDERED: FUROSEMIDE 10 MG/ML 4 ML VIAL IV STA (07:04)
[2020-04-24] MEDS: BUDESONIDE 1 MG/2 ML NEBU INHALATION SCH ×2 (07:57→21:30)
[2020-04-24] MEDS: FORMOTEROL FUMARATE 20 MCG/2 ML NEBU INHALATION SCH ×2 (07:57→21:31)
--- NOTE | 2020-04-24 08:09 | XR ---
EXAMINATION TYPE: XR chest 1V portable DATE OF EXAM: 04/24/2020 COMPARISON: 04/23/2020 INDICATION: Pneumonia TECHNIQUE: Single frontal view of the chest is obtained. FINDINGS: The heart size is normal. The pulmonary vasculature is normal. There is mild diffuse increased lung markings bilaterally greater in the lower lung morales. There may be some progression at the left lung base. Small right pleural effusion may be present. Left central venous catheter tip is within the proximal right atrium. Nasogastric tube transverses th e thorax within the proximal left upper quadrant of the abdomen. This has been pulled back somewhat f rom prior study and can be advanced. Endotracheal tube tip is above the corrine. IMPRESSION: 1. Mild worsening of diffuse bilateral lung infiltrates. 2. Small right pleural effusion. 3. Lines and catheters discussed above. 4. Nasogastric tube can be advanced.
[2020-04-24] MEDS: hydrALAZINE HCL 20 MG/ML 1 ML VIAL IVP PRN (08:33)
[2020-04-24] MEDS: INSULIN DETEMIR (LEVEMIR) 100 UNIT/ML SYR SQ SCH (09:17)
[2020-04-24] MEDS: amLODIPine 5 MG TAB PO SCH (09:42)
[2020-04-24] MEDS: LEVOFLOXACIN 750MG-D5W PMX 750 MG in DEXTROSE/WATER 1 150ML.BAG IVPB SCH (09:42)
[2020-04-24] MEDS: ZINC SULFATE 220 MG CAP PO SCH (09:43)
[2020-04-24] MEDS: FAMOTIDINE 20 MG TAB PO SCH (09:43)
[2020-04-24] MEDS: CHOLECALCIFEROL 25 MCG (1000 IU) TABLET PO SCH (09:43)
[2020-04-24] MEDS: ASCORBIC ACID 500 MG TAB PO SCH ×2 (09:43→19:59)
[2020-04-24] MEDS: CHLORHEXIDINE GLUCONATE 15 ML CUP MUCOUS MEM SCH ×2 (09:43→19:59)
[2020-04-24 09:49] LABS: Glucose,Whole Blood 134 mg/dL (75-99)
[2020-04-24] MEDS: ENOXAPARIN 40 MG/0.4 ML SYRINGE SQ SCH (09:53)
[2020-04-24 10:31] LABS: ABG HCO3 37 mmol/L (21-25); ABG Oxygen Saturation 97.2 % (94-97); ABG PCO2 46 mmHg (35-45); ABG PH 7.51 (7.35-7.45); ABG PO2 87 mmHg (83-108); ABG TCO2 38 mmol/L (19-24)
[2020-04-24 10:32] LABS: Allen Test Performed? no
[2020-04-24 11:25] LABS: Glucose,Whole Blood 124 mg/dL (75-99)
--- NOTE | 2020-04-24 14:58 | P.PN ---
Subjective Progress Note Date: 04/24/20 This is a 44-year-old the pleasant female came in with compensative for shortness of breath. Generalized body aches and fever chills patient symptoms has been going on for about a week patient recently returned from [place] from [place] patient is a unaware of any exposure to sick people although patient was exposed to many people when she visited a [place]. Patient had a chest x- ray and a computed tomography scan of the chest which showed extensive consolidation of the right lung and some consolidation and infiltrate consistent with on the left side. Covid 19 PCR is still pending. Patient is presently on BiPAP patient is being admitted to intensive care unit 04/22/2020 Patient is seen and evaluated and follow-up continues to be closely monitored in the ICU. Patient is maintained on mechanical ventilation and is sedated. IV antibiotics transitioned to Levaquin and pulmonary is following closely. Chest x-ray today shows persistent bilateral multifocal multilobar infiltrates with no significant change from yesterday. White blood count slowly trending down at 19.3, sodium is 147, potassium is 4.5, current creatinine is 0.59. Blood sugars slightly elevated and will continue with sliding scale along with long-acting as patient is on IV steroids. Patient was positive for Legionella and urine and sputum cultures currently pending. 04/23/2020 Patient continues to be closely monitored in the intensive care unit and continues to be intubated and sedated on mechanical vent. Sedation has been decreased and patient able to follow simple commands although unable to wean at this time as chest x-ray continues to show bilateral airspace disease right greater than left without significant change from previous. Patient blood pressures slightly elevated and maintained on Norvasc and will continue. Blood sugars elevated and increased long-acting and will continue with sliding scale with Accu-Cheks every 4 hours. Patient is maintained on IV Levaquin and will continue. Pulmonary following closely. Patient's urine is positive for Legionella and per nursing staff [facility] has been informed of this finding. A she sputum culture preliminary showing presumptive Legionella species and per documentation on the microbiology report this was also sent to [facility] for confirmation. Patient has intermittent low-grade 100 fever. Blood count is trending down slowly at 15.6. D-dimer slowly trending down as well at 1.51. Sodium slightly elevated at 147 and patient is maintained on gentle IV hydration of sodium chloride 0.45. 04/24/2020 Patient continues to be on mechanical ventilation and currently receiving sedation holiday to assess mentation and functionality and the possibility of weaning. She is currently off propofol and being closely monitored. Patient continues to be in the ICU. White blood count continues to trend down and is 11.3, hemoglobin is stable at 13.6, sodium is 144, potassium is 4.6, BUN is 34 and a creatinine is 0.45. Blood sugars being closely monitored. Patient is maintained on sliding scale along with long-acting and will continue with current regimen. Tube feedings also on hold in attempts at weaning today. Pulmonary felt finisher following closely. Review of systems: Unable to obtain due to her clinical condition patient is intubated Active Medications Acetaminophen (Acetaminophen Tab 325 Mg Tab) 650 mg PO Q4HR PRN PRN Reason: Fever and/or Mild Pain Last Admin: 04/18/20 23:52 Dose: 650 mg Documented by: Albuterol/Ipratropium (Ipratropium-Albuterol 3 Ml Neb) 3 ml INHALATION RT-Q4H [facility] Last Admin: 04/24/20 11:45 Dose: 3 ml Documented by: Albuterol/Ipratropium (Ipratropium-Albuterol 3 Ml Neb) 3 ml INHALATION RT-Q2H PRN PRN Reason: Shortness Of Breath Or Wheezing Amlodipine Besylate (Amlodipine 5 Mg Tab) 5 mg PO DAILY [facility] Last Admin: 04/24/20 09:42 Dose: Not Given Documented by: Ascorbic Acid (Ascorbic Acid 500 Mg Tab) 500 mg PO BID [facility] Last Admin: 04/24/20 09:43 Dose: Not Given Documented by: Atorvastatin Calcium (Atorvastatin 10 Mg Tab) 10 mg PO HS [facility] Last Admin: 04/23/20 20:04 Dose: 10 mg Documented by: Budesonide (Budesonide 1 Mg/2 Ml Nebu) 1 mg INHALATION RT-BID [facility] Last Admin: 04/24/20 07:57 Dose: 1 mg Documented by: Chlorhexidine Gluconate (Chlorhexidine Gluconate 15 Ml Cup) 15 ml MUCOUS MEM BID [facility] Last Admin: 04/24/20 09:43 Dose: Not Given Documented by: Cholecalciferol (Cholecalciferol 25 Mcg (1000 Iu) Tablet) 25 mcg PO DAILY [facility] Last Admin: 04/24/20 09:43 Dose: Not Given Documented by: Enoxaparin Sodium (Enoxaparin 40 Mg/0.4 Ml Syringe) 40 mg SQ DAILY [facility] Last Admin: 04/24/20 09:53 Dose: 40 mg Documented by: Famotidine (Famotidine 20 Mg Tab) 20 mg PO DAILY [facility] Last Admin: 04/24/20 09:43 Dose: Not Given Documented by: Formoterol Fumarate (Formoterol Fumarate 20 Mcg/2 Ml Nebu) 20 mcg INHALATION RT-BID [facility] Last Admin: 04/24/20 07:57 Dose: 20 mcg Documented by: Hydralazine HCl (Hydralazine Hcl 20 Mg/Ml 1 Ml Vial) 10 mg IVP Q6HR PRN PRN Reason: Blood Pressure - High Last Admin: 04/24/20 08:33 Dose: 10 mg Documented by: Hydromorphone HCl (Hydromorphone 1 Mg/Ml 1 Ml Syringe) 1 mg IVP Q2HR PRN PRN Reason: Severe Pain Last Admin: 04/24/20 05:21 Dose: 1 mg Documented by: Hydromorphone HCl (Hydromorphone 0.5 Mg/0.5 Ml Syringe) 0.5 mg IVP Q2HR PRN PRN Reason: Moderate Pain Last Admin: 04/22/20 21:43 Dose: 0.5 mg Documented by: Propofol 1,000 mg/ IV Solution 100 mls @ 0 mls/hr IV .Q0M [facility]; Protocol Last Titration: 04/24/20 08:25 Dose: 0 mcg/kg/min, 0 mls/hr Documented by: Levofloxacin 750 mg/ IV (Solution) 150 mls @ 100 mls/hr IVPB Q24H [facility] Last Admin: 04/24/20 09:42 Dose: 100 mls/hr Documented by: Sodium Chloride (Saline 0.45%) 1,000 mls @ 10 mls/hr IV .Q24H [facility] Last Admin: 04/24/20 03:56 Dose: 10 mls/hr Documented by: Insulin Aspart (Insulin Aspart (Novolog) 100 Unit/Ml Vial) 0 unit SQ Q4HR [facility]; Protocol Last Admin: 04/24/20 11:52 Dose: Not Given Documented by: Insulin Detemir (Insulin Detemir (Levemir) 100 Unit/Ml Syr) 20 unit SQ DAILY@0700 [facility] Last Admin: 04/24/20 09:17 Dose: 20 unit Documented by: Methylprednisolone Sodium Succinate (Methylprednisolone Sod Succi 40 Mg/Ml 1 Ml Vial) 40 mg IV Q8HR [facility] Last Admin: 04/24/20 09:42 Dose: 40 mg Documented by: Miscellaneous Information (Potassium Replacement Protocol 1 Each Misc) 1 each MISCELLANE DAILY PRN; Protocol PRN Reason: Per Protocol Montelukast Sodium (Montelukast 10 Mg Tab) 10 mg PO HS [facility] Last Admin: 04/23/20 20:04 Dose: 10 mg Documented by: Naloxone HCl (Naloxone 0.4 Mg/Ml 1 Ml Vial) 0.2 mg IV Q2M PRN PRN Reason: Opioid Reversal Zinc Sulfate (Zinc Sulfate 220 Mg Cap) 220 mg PO DAILY [facility] Last Admin: 04/24/20 09:43 Dose: Not Given Documented by: Objective - Vital Signs Vital signs: Vital Signs Temp 98.5 F 04/24/20 04:00 Pulse 56 L 04/24/20 08:18 Resp 16 04/24/20 08:00 BP 152/79 04/24/20 07:00 Pulse Ox 96 04/24/20 08:00 Intake & Output 04/23/20 04/24/20 04/24/20 18:59 06:59 18:59 Intake Total 5044.832 8511.336 93.242 Output Total 1430 1255 120 Balance -417.389 -74.664 -26.758 Weight 95.3 kg Intake: IV 342 192 16 Levofloxacin 750Mg-D5w 150 Pmx 750 mg In Dextrose/ Water 1 150ml.bag @ 100 mls/hr IVPB Q24H [facility] Rx#: [id number] Pressure bag 72 72 6 Sodium Chloride 0.45% 1, 120 120 10 000 ml @ 10 mls/hr IV . Q24H [facility] Rx#:[id number] Intake, IV Titration 248.611 276.336 51.242 Amount propofoL 1,000 mg In 248.611 276.336 51.242 Empty Bag 1 bag @ Titrate IV .Q0M [facility] Rx#: [id number] Tube Feeding 312 312 26 Other 110 400 Output: Urine 1430 1255 120 Other: Voiding Method Indwelling Catheter Indwelling Catheter ABP, PAP, CO, CI - Last Documented Arterial Blood Pressure 156/71 - Exam GENERAL: Patient is currently intubated and sedated. Temp is 98.5F, pulse is 51, respirations are 16, blood pressure is 156/71, oxygen saturation is 96% on mechanical ventilation with an FiO2 of 40 HEENT: Pupils are round and equally reacting to light. EOMI. No scleral icterus. No conjunctival pallor. Normocephalic, atraumatic. No pharyngeal erythema. No thyromegaly. Eyes opening spontaneously and able to nod. CARDIOVASCULAR: S1 and S2 present. No murmurs, rubs, or gallops. PULMONARY: Diminished breath sounds bilaterally with some scattered rhonchi noted ABDOMEN: Soft, nontender, nondistended, normoactive bowel sounds. No palpable organomegaly. MUSCULOSKELETAL: No joint swelling or deformity. EXTREMITIES: No cyanosis, clubbing, or pedal edema. NEUROLOGICAL: Patient is sedated SKIN: No rashes. - Labs CBC & Chem 7: 04/24/20 04:05 04/24/20 04:05 Labs: Abnormal Lab Results - Last 24 Hours (Table) 04/23/20 04/23/20 04/23/20 Range/Units 03:35 11:29 11:33 WBC (3.8-10.6) k/uL Neutrophils # (1.3-7.7) k/uL ABG pCO2 (35-45) mmHg ABG HCO3 31 H (21-25) mmol/L ABG Total CO2 33 H (19-24) mmol/L ABG O2 Saturation 98.5 H (94-97) % Carbon Dioxide (22-30) mmol/L BUN (7-17) mg/dL Creatinine (0.52-1.04) mg/dL Glucose (74-99) mg/dL POC Glucose (mg/dL) 165 H (75-99) mg/dL Ferritin 844.1 H (10.0-291.0) ng/mL 04/23/20 04/23/20 04/24/20 Range/Units 16:14 20:01 00:05 WBC (3.8-10.6) k/uL Neutrophils # (1.3-7.7) k/uL ABG pCO2 (35-45) mmHg ABG HCO3 (21-25) mmol/L ABG Total CO2 (19-24) mmol/L ABG O2 Saturation (94-97) % Carbon Dioxide (22-30) mmol/L BUN (7-17) mg/dL Creatinine (0.52-1.04) mg/dL Glucose (74-99) mg/dL POC Glucose (mg/dL) 178 H 191 H 190 H (75-99) mg/dL Ferritin (10.0-291.0) ng/mL 04/24/20 04/24/20 04/24/20 Range/Units 04:05 04:05 04:05 WBC 11.3 H (3.8-10.6) k/uL Neutrophils # 9.5 H (1.3-7.7) k/uL ABG pCO2 (35-45) mmHg ABG HCO3 (21-25) mmol/L ABG Total CO2 (19-24) mmol/L ABG O2 Saturation (94-97) % Carbon Dioxide 33 H (22-30) mmol/L BUN 34 H (7-17) mg/dL Creatinine 0.45 L (0.52-1.04) mg/dL Glucose 177 H (74-99) mg/dL POC Glucose (mg/dL) 179 H (75-99) mg/dL Ferritin (10.0-291.0) ng/mL 04/24/20 Range/Units 05:12 WBC (3.8-10.6) k/uL Neutrophils # (1.3-7.7) k/uL ABG pCO2 48 H (35-45) mmHg ABG HCO3 33 H (21-25) mmol/L ABG Total CO2 35 H (19-24) mmol/L ABG O2 Saturation (94-97) % Carbon Dioxide (22-30) mmol/L BUN (7-17) mg/dL Creatinine (0.52-1.04) mg/dL Glucose (74-99) mg/dL POC Glucose (mg/dL) (75-99) mg/dL Ferritin (10.0-291.0) ng/mL Microbiology - Last 24 Hours (Table) 04/19/20 08:55 Legionella Culture - Preliminary Sputum 04/17/20 10:58 Blood Culture - Final Blood No Growth after 144 hours 04/17/20 11:02 Blood Culture - Final Blood No Growth after 144 hours Assessment and Plan Assessment: -Acute hypoxic respiratory failure secondary to pneumonia with extensive consolidation of right lung requiring mechanical ventilation on 04/19/2020 -Legionella pneumonia as noted on urine culture along with presumptive Legionella preliminary showing in the sputum culture -Covid 19 ruled out, testing 2 was negative -Sepsis secondary to community-acquired pneumonia -Leukocytosis secondary to severe sepsis -hypertension -Elevated blood sugars: Most likely secondary to IV steroids and tube feedings -Hyperlipidemia -Tachycardia secondary to severe sepsis -Full code Recommendations and discussion: Recommend continue current medications, management, and symptomatic treatment. Patient currently on mechanical ventilation with sedation holiday and attempts at weaning today. Tube feedings are on hold for possible weaning from mechanical vent. Chest x-ray today shows mild worsening of diffuse bilateral lung infiltrates with a small right pleural effusion. Is continued on IV antibiotics in the form of Levaquin. Sputum Legionella showing presumptive positive on preliminary report at this time. Will continue to monitor Accu- Cheks closely and continue sliding scale along with long-acting as patient is maintained on IV steroids along with bronchodilators and breathing inhalational treatments and will continue. Will continue to monitor closely and adjust once diet is resumed. Pulmonary is following closely. Will continue to monitor vital signs and labs closely and repeat a.m. labs. Due to multiple complex medical issues, prognosis is guarded. Further recommendations to follow.
[2020-04-24 17:41] LABS: Glucose,Whole Blood 140 mg/dL (75-99)
[2020-04-24] MEDS: MONTELUKAST 10 MG TAB PO SCH (19:59)
[2020-04-24] MEDS: ATORVASTATIN 10 MG TAB PO SCH (19:59)
[2020-04-24 20:04] LABS: Glucose,Whole Blood 106 mg/dL (75-99)
[2020-04-24] MEDS ORDERED: HALOPERIDOL LACTATE 5 MG/ML 1 ML VIAL IVP PRN (21:23)
[2020-04-24 23:55] LABS: Glucose,Whole Blood 97 mg/dL (75-99)
[2020-04-25] MEDS: hydrALAZINE HCL 20 MG/ML 1 ML VIAL IVP PRN
[2020-04-25] MEDS: IPRATROPIUM-ALBUTEROL 3 ML NEB INHALATION SCH ×6 (00:48→20:34)
[2020-04-25 04:09] LABS: Glucose,Whole Blood 161 mg/dL (75-99)
[2020-04-25] MEDS: INSULIN ASPART (NovoLOG) 100 UNIT/ML VIAL SQ SCH ×5 (04:14→19:57)
[2020-04-25 04:25] LABS: Basophils # (A) 0.1 k/uL (0-0.2); Basophils % (A) 0 %; Eosinophils # (A) 0.1 k/uL (0-0.7); Eosinophils % (A) 0 %; HCT 37.5 % (34.0-46.0); Lymphocytes # (A) 1.6 k/uL (1.0-4.8); Lymphocytes % (A) 10 %; MCH 29.9 pg (25.0-35.0); MCHC 31.9 g/dL (31.0-37.0); MCV 93.8 fL (80.0-100.0); Mean Platelet Volume 9.1; Monocytes # (A) 0.5 k/uL (0-1.0); Monocytes % (A) 3 %; Neutrophils # (A) 13.4 k/uL (1.3-7.7); Neutrophils % (A) 85 %; Platelet Count 286 k/uL (150-450); RDW 14.5 % (11.5-15.5); WBC 15.6 k/uL (3.8-10.6)
[2020-04-25 04:35] LABS: ALT 114 U/L (4-34); AST 91 U/L (14-36); African American GFR (CKD) >90 (>60 ml/min/1.73 sqM); Alkaline Phosphatase 109 U/L (38-126); Anion Gap 4 mmol/L; Blood Urea Nitrogen 25 mg/dL (7-17); Carbon Dioxide 35 mmol/L (22-30); Chloride 100 mmol/L (98-107); Glucose 162 mg/dL (74-99); Non-African American GFR(CKD) >90 (>60 ml/min/1.73 sqM); Potassium 4.1 mmol/L (3.5-5.1); Sodium 139 mmol/L (137-145); Total Bilirubin 0.8 mg/dL (0.2-1.3); Total Protein 5.7 g/dL (6.3-8.2)
[2020-04-25 06:32] LABS: Glucose,Whole Blood 135 mg/dL (75-99)
[2020-04-25] MEDS: INSULIN DETEMIR (LEVEMIR) 100 UNIT/ML SYR SQ SCH (06:35)
[2020-04-25] MEDS ORDERED: FUROSEMIDE 10 MG/ML 2 ML VIAL IV STA (07:11)
--- NOTE | 2020-04-25 07:11 | P.PN ---
Subjective Progress Note Date: 04/25/20 On 05/12/2020 I'm seeing this patient in follow-up in the intensive care unit. This patient has been diagnosed having Legionella pneumonia with extensive bilateral consolidation acute hypoxic respiratory failure, requiring intubation mechanical ventilation as of 04/19/2020. The patient currently is on mechanical ventilator on assist control mode at the rate of 34 with a tidal volume of 350 and FiO2 of 40% and a PEEP of 15. The blood gases from today shows a pH of 7.42 with a pCO2 of 42 and pO2 of 92. Chest x-ray continues to show improvement in the right lung consolidation there is also improvement in her left lower lobe consolidation. ET tube is in a good location. White cell count the 19.3 and is down. The patient is hemodynamically stable and the patient is on no pressors. The patient is currently on propofol sedated at the rate of 50 mcg/kg per minute. IV fluids is running at 75 mL an hour. She has a triple-lumen catheter in her left subclavian and she has also an arterial line in her right upper extremity. No signs of any fluid overload. She is receiving enteral feeding for nutritional support and she is currently on vital high protein at the rate of 20 mL an hour. Antibiotic coverage includes a combination of Zithromax and Rocephin. She is also on IV Solu Medrol 40 mg every 8 hours. Fluid balance +1 L, and the COVID 19 testing was negative. Liver function tests are improving and his CPK was 346 and time of admission. The peak airway pressure is around 34 static airway pressure is 29. On 04/23/2020 I'm seeing the patient will follow-up. This patient has a severe Legionella pneumonia the patient is currently on Levaquin. She also has hypoxic respiratory failure and she is on a mechanical ventilator on assist control mode with a tidal volume of 350 and FiO2 of 40% with a PEEP of 13 the follow-up chest x-ray from today is essentially looking stable with some ongoing improvement in the right lower lobe and the left lung consolidation is also improving. ET tube is in a good location. The patient has a peak airway pressure of around 31 anesthetic pressures also 29. The blood gases showed a pH of 7.47 with a pCO2 of 43 and pO2 100.. The neck fluid balance was -1.6 L over the past 24 hours. The patient was given a dose of Lasix 40 mg IV push 1 and the sodium level today is at 147 which is essentially the same as yesterday with a BUN of 38 and a creatinine of 0.58. She is afebrile. She is hemodynamically stable on no pressors. She is receiving enteral feeding for nutritional support in the form of vital high protein at the rate of 26 mL an hour and this is her goal. He is also receiving 200 mL of water flushes and her IV fluids are running at KVO. She is on propofol running at 50 g/kg per minute. On 04/24/2020 I'm seeing the patient for a follow-up. She is doing well. No specific issues overnight. She remains on a mechanical ventilator. On today's evaluation, the patient is an assist-control mode with a rate of 24, tidal volume of 400 with a PEEP of 6 and FiO2 of 40%. The chest x-ray shows some infiltration of the lung bases. There is significant clearing of the vital pulmonary infiltrates. ET tube is in a good location. OG tube is in a good location. The blood gases showed a pH of 7.45 with a pCO2 of 48 and pO2 of 84. White cell count is at 11.3 which is lower compared to yesterday and the patient's renal function test is also within normal limits. The fluid balance over the past 24 hours is -1.6 L as the patient was given diuretics yesterday in the form of Lasix. Currently she is on Levaquin regarding her Legionella pneumonia. She is on IV Solu-Medrol. She is on bronchodilators. She is on h arjun-normal saline at the rate of 10 mL an hour which is running at KVO and this morning she is sedated with propofol running at 40 mcg/kg per minute. The patient has no other issues for now. Note that the sputum analysis also came back positive for Legionella. A sedation holiday will be given to her today and assess her candidacy for further weaning. On 04/25/2020 I'm seeing the patient for a follow-up. Note that the patient was extubated yesterday to a nasal cannula and currently she is on 4 L of oxygen by nasal cannula. She is comfortable laying down comfortably in bed without any major respiratory issues. No significant cough or sputum production pulse ox is around 95% on room air and she remains hemodynamically stable. Note that she was extubated yesterday without any major difficulties. Chest x-ray still showing bilateral pulmonary infiltrates and possibly a developing effusion on the right. The patient is a negative fluid balance patient was given a dose of Lasix yesterday and she is at least 2 L negative over the past 24 hours. Overnight, the patient became quite delirious and restless and agitated. I ordered Haldol however this was not given as the patient's condition gradually settled down.. She is weak and there is global generalized weakness in all 4 extremities. She has a decent cough. She remains nothing by mouth for now. No nausea. No vomiting. No abdominal pain. No chest pain. No focal neurological deficits. She is afebrile. She remains on Levaquin. She remains on systemic steroids. Objective - Vital Signs Vital signs: Vital Signs Temp 98.7 F 04/25/20 04:00 Pulse 80 04/25/20 06:00 Resp 18 04/25/20 06:00 BP 130/78 04/25/20 06:00 Pulse Ox 97 04/25/20 06:00 Intake & Output 04/24/20 04/25/20 04/25/20 18:59 06:59 18:59 Intake Total 354.242 156 Output Total 3270 1745 Balance -2915.758 -1589 Weight 88.5 kg Intake: IV 277 156 Levofloxacin 750Mg-D5w 100 Pmx 750 mg In Dextrose/ Water 1 150ml.bag @ 100 mls/hr IVPB Q24H [facility] Rx#: [id number] Pressure bag 57 36 Sodium Chloride 0.45% 1, 120 120 000 ml @ 10 mls/hr IV . Q24H [facility] Rx#:[id number] Intake, IV Titration 51.242 Amount propofoL 1,000 mg In 51.242 Empty Bag 1 bag @ Titrate IV .Q0M [facility] Rx#: [id number] Tube Feeding 26 Output: Urine 3270 1745 Other: Voiding Method Indwelling Catheter Indwelling Catheter ABP, PAP, CO, CI - Last Documented Arterial Blood Pressure 151/68 - Exam No acute distress, the patient is on 4 L of oxygen by nasal cannula. No signs of any respiratory distress. The patient does have some underlying confusion and she remains somewhat delirious. She is not oriented to place Head exam was generally normal. There was no scleral icterus or corneal arcus. Mucous membranes were moist. HEENT examination is grossly unremarkable. Neck supple full range of motion. No adenopathy or thyromegaly. Neck veins are flat. Cardiac exam revealed the PMI to be normally situated and sized. The rhythm was regular and no extrasystoles were noted during several minutes of auscultation. The first and second heart sounds were normal and physiologic splitting of the second heart sound was noted. There were no murmurs, rubs, clicks, or gallops. Pulmonary examination reveals diffuse coarse rhonchi. Breath sounds are equal. No wheezes or crackles. Abdomen soft. Sounds are heard. No masses or tenderness. Extremities are intact. No cyanosis clubbing or edema. Examination of the skin revealed no evidence of significant rashes, suspicious appearing nevi or other concerning lesions. Neurologic , awake and alert, episodically confused, moving all 4 extremities without any limitation, no cranial nerve deficits, moving all 4 extremities. - Labs CBC & Chem 7: 04/25/20 04:05 04/25/20 04:05 Labs: Abnormal Lab Results - Last 24 Hours (Table) 04/24/20 04/24/20 04/24/20 Range/Units 09:47 10:28 11:24 WBC (3.8-10.6) k/uL Neutrophils # (1.3-7.7) k/uL ABG pH 7.51 H (7.35-7.45) ABG pCO2 46 H (35-45) mmHg ABG HCO3 37 H (21-25) mmol/L ABG Total CO2 38 H (19-24) mmol/L ABG O2 Saturation 97.2 H (94-97) % Carbon Dioxide (22-30) mmol/L BUN (7-17) mg/dL Creatinine (0.52-1.04) mg/dL Glucose (74-99) mg/dL POC Glucose (mg/dL) 134 H 124 H (75-99) mg/dL Calcium (8.4-10.2) mg/dL AST (14-36) U/L ALT (4-34) U/L Total Protein (6.3-8.2) g/dL Albumin (3.5-5.0) g/dL 04/24/20 04/24/20 04/25/20 Range/Units 17:40 20:02 04:05 WBC (3.8-10.6) k/uL Neutrophils # (1.3-7.7) k/uL ABG pH (7.35-7.45) ABG pCO2 (35-45) mmHg ABG HCO3 (21-25) mmol/L ABG Total CO2 (19-24) mmol/L ABG O2 Saturation (94-97) % Carbon Dioxide 35 H (22-30) mmol/L BUN 25 H (7-17) mg/dL Creatinine 0.36 L (0.52-1.04) mg/dL Glucose 162 H (74-99) mg/dL POC Glucose (mg/dL) 140 H 106 H (75-99) mg/dL Calcium 8.0 L (8.4-10.2) mg/dL AST 91 H (14-36) U/L ALT 114 H (4-34) U/L Total Protein 5.7 L (6.3-8.2) g/dL Albumin 3.0 L (3.5-5.0) g/dL 04/25/20 04/25/20 04/25/20 Range/Units 04:05 04:07 06:31 WBC 15.6 H (3.8-10.6) k/uL Neutrophils # 13.4 H (1.3-7.7) k/uL ABG pH (7.35-7.45) ABG pCO2 (35-45) mmHg ABG HCO3 (21-25) mmol/L ABG Total CO2 (19-24) mmol/L ABG O2 Saturation (94-97) % Carbon Dioxide (22-30) mmol/L BUN (7-17) mg/dL Creatinine (0.52-1.04) mg/dL Glucose (74-99) mg/dL POC Glucose (mg/dL) 161 H 135 H (75-99) mg/dL Calcium (8.4-10.2) mg/dL AST (14-36) U/L ALT (4-34) U/L Total Protein (6.3-8.2) g/dL Albumin (3.5-5.0) g/dL Assessment and Plan Plan: 1 Acute hypoxemic respiratory failure, with intubation and mechanical ventilation on 04/19/2020. She was extubated on 04/24/2020 and currently she is on 4 L of oxygen by nasal cannula. Chest x-ray showing bilateral pulmonary infiltrates more so on the right, improved yet stable compared to yesterday and possibly there is some effusion and for that reason we'll obtain a chest ultrasound. 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 The patient is afebrile. The patient is hemodynamically stable, the patient is extubated on 4 L about 2 by nasal cannula 3 Acute hypoxemic respiratory failure secondary to extensive consolidative pneumonia bilaterally. Improving on 4 L about 2 by nasal cannula 4 History of asthma. 5 History of hypertension. 6 History of hyperlipidemia. 7 History of chronic tobacco use with nicotine addiction, having smoked for 32 years, rule out COPD. 8 Mild metabolic acidosis. 9 acute kidney injury , recovered 10 acute leukocytosis secondary to above, improved Plan: continue Levaquin 750 mg IV every 24 hours Swallow evaluation Given additional dose of Lasix 20 mg IV push IV fluids to KVO Provide diet if she is able to pass a swallow evaluation Continue monitoring and involve physical therapy for passive range of motion if possible sit up on a chair Blood sugars are stable and the patient is on Levemir insulin 20 units daily along with slight scale coverage I suggest removing the arterial line Monitor the mental status and use Haldol for delirium Keep the patient ICU for today, possible transfer out of the ICU by afternoon if she remains stable.
[2020-04-25] MEDS: FORMOTEROL FUMARATE 20 MCG/2 ML NEBU INHALATION SCH ×2 (07:47→20:34)
[2020-04-25] MEDS: BUDESONIDE 1 MG/2 ML NEBU INHALATION SCH ×2 (07:47→20:34)
--- NOTE | 2020-04-25 08:09 | US ---
EXAMINATION TYPE: US chest DATE OF EXAM: 04/25/2020 COMPARISON: CXR earlier today. CLINICAL HISTORY: Markings for thoracentesis by pulmonary staff. Effusion TECHNIQUE: Targeted ultrasound of the posterior lower bilateral hemithoraces EXAM MEASUREMENTS: No sizeable fluid pocket measured bilaterally Right side NOT marked for possible thoracentesis outside the dept. Left side NOT marked for possible thoracentesis outside the dept. Pulmonologists are able to review the images in the patient?s EMR. 3 images saved show tiny right and trace left pleural effusions. Findings correlated with same day x- ray. IMPRESSIONS: As above.
[2020-04-25] MEDS: CHLORHEXIDINE GLUCONATE 15 ML CUP MUCOUS MEM SCH ×2 (08:19→20:11)
[2020-04-25] MEDS: amLODIPine 5 MG TAB PO SCH (08:49)
[2020-04-25] MEDS: FAMOTIDINE 20 MG TAB PO SCH (08:49)
[2020-04-25] MEDS: CHOLECALCIFEROL 25 MCG (1000 IU) TABLET PO SCH (08:49)
[2020-04-25] MEDS: ASCORBIC ACID 500 MG TAB PO SCH ×2 (08:49→19:59)
[2020-04-25] MEDS: methylPREDNISolone SOD SUCCI 40 MG/ML 1 ML VIAL IV SCH ×2 (08:50→18:16)
[2020-04-25] MEDS: LEVOFLOXACIN 750MG-D5W PMX 750 MG in DEXTROSE/WATER 1 150ML.BAG IVPB SCH (08:50)
[2020-04-25] MEDS: ZINC SULFATE 220 MG CAP PO SCH (08:51)
[2020-04-25] MEDS: ENOXAPARIN 40 MG/0.4 ML SYRINGE SQ SCH (08:51)
[2020-04-25] MEDS: SODIUM CHLORIDE 0.45% 1,000 ML IV SCH (09:04)
--- NOTE | 2020-04-25 09:04 | XR ---
EXAMINATION TYPE: XR chest 1V portable DATE OF EXAM: 04/25/2020 Comparison: 04/24/2020 Clinical History: 44-year-old female Shortness of breath Findings: Interval extubation and removal of NG tube. Left CVC tip in the right atrium. Heart borderline in siz e. Interstitial opacities and patchy confluence mid and lower lung opacities, right greater than left , stable to slightly worsened from prior. Suspect a small right effusion. Impression: Stable to slightly worsening bilateral airspace disease, right greater than left. Continued small rig ht effusion.
[2020-04-25 09:05] LABS: Glucose,Whole Blood 126 mg/dL (75-99)
[2020-04-25 10:24] VITALS: BMI 33.5
[2020-04-25 11:43] LABS: Glucose,Whole Blood 150 mg/dL (75-99)
--- NOTE | 2020-04-25 15:16 | P.PN ---
Subjective Progress Note Date: 04/25/20 This is a 44-year-old the pleasant female came in with compensative for shortness of breath. Generalized body aches and fever chills patient symptoms has been going on for about a week patient recently returned from [place] from [place] patient is a unaware of any exposure to sick people although patient was exposed to many people when she visited a [place]. Patient had a chest x- ray and a computed tomography scan of the chest which showed extensive consolidation of the right lung and some consolidation and infiltrate consistent with on the left side. Covid 19 PCR is still pending. Patient is presently on BiPAP patient is being admitted to intensive care unit 04/22/2020 Patient is seen and evaluated and follow-up continues to be closely monitored in the ICU. Patient is maintained on mechanical ventilation and is sedated. IV antibiotics transitioned to Levaquin and pulmonary is following closely. Chest x-ray today shows persistent bilateral multifocal multilobar infiltrates with no significant change from yesterday. White blood count slowly trending down at 19.3, sodium is 147, potassium is 4.5, current creatinine is 0.59. Blood sugars slightly elevated and will continue with sliding scale along with long-acting as patient is on IV steroids. Patient was positive for Legionella and urine and sputum cultures currently pending. 04/23/2020 Patient continues to be closely monitored in the intensive care unit and continues to be intubated and sedated on mechanical vent. Sedation has been decreased and patient able to follow simple commands although unable to wean at this time as chest x-ray continues to show bilateral airspace disease right greater than left without significant change from previous. Patient blood pressures slightly elevated and maintained on Norvasc and will continue. Blood sugars elevated and increased long-acting and will continue with sliding scale with Accu-Cheks every 4 hours. Patient is maintained on IV Levaquin and will continue. Pulmonary following closely. Patient's urine is positive for Legionella and per nursing staff [facility] has been informed of this finding. A she sputum culture preliminary showing presumptive Legionella species and per documentation on the microbiology report this was also sent to [facility] for confirmation. Patient has intermittent low-grade 100 fever. Blood count is trending down slowly at 15.6. D-dimer slowly trending down as well at 1.51. Sodium slightly elevated at 147 and patient is maintained on gentle IV hydration of sodium chloride 0.45. 04/24/2020 Patient continues to be on mechanical ventilation and currently receiving sedation holiday to assess mentation and functionality and the possibility of weaning. She is currently off propofol and being closely monitored. Patient continues to be in the ICU. White blood count continues to trend down and is 11.3, hemoglobin is stable at 13.6, sodium is 144, potassium is 4.6, BUN is 34 and a creatinine is 0.45. Blood sugars being closely monitored. Patient is maintained on sliding scale along with long-acting and will continue with current regimen. Tube feedings also on hold in attempts at weaning today. Pulmonary industrial property appraiser following closely. 04/25/2020 Patient is seen and evaluated and follow-up in continues to be closely monitored in the ICU. Patient was recently extubated yesterday and is currently on 4 L of oxygen via nasal cannula. Patient is alert and oriented 2-3 and responding appropriately to questions and commands although has brief moments of anxiety and confusion thinking nursing staff was her family out in the [place]. Patient is quite weak and will be having PT/OT therapy evaluate the patient. Tube feedings have been discontinued and patient will be maintained on dysphagia to ground with supervision with meals as she was evaluated by speech therapy with these recommendations. Continue to have the head of the bed elevated 30-45. Patient underwent chest ultrasound for the possibility of thoracentesis and showed tiny right and trace left pleural effusions and patient received a dose of Lasix. Chest x-ray today shows stable to slightly worsening bilateral airspace disease right greater than the left with continued right small effusion. Blood sugars continue to be monitored closely and continue with long-acting along with sliding scale before meals and at bedtime and may adjust once diet is advanced. Review of systems: Constitutional: No reports of fatigue, fever, or chills Cardiovascular: No reports of chest pain or palpitations Respiratory: No reports of shortness of breath , reports occasional cough GI: No reports of nausea, vomiting, or diarrhea : No reports of dysuria or retention Neurovascular: Reports generalized weakness in all 4 extremities All medications have been reviewed Active Medications Acetaminophen (Acetaminophen Tab 325 Mg Tab) 650 mg PO Q4HR PRN PRN Reason: Fever and/or Mild Pain Last Admin: 04/18/20 23:52 Dose: 650 mg Documented by: Albuterol/Ipratropium (Ipratropium-Albuterol 3 Ml Neb) 3 ml INHALATION RT-Q4H [facility] Last Admin: 04/25/20 11:04 Dose: 3 ml Documented by: Albuterol/Ipratropium (Ipratropium-Albuterol 3 Ml Neb) 3 ml INHALATION RT-Q2H PRN PRN Reason: Shortness Of Breath Or Wheezing Amlodipine Besylate (Amlodipine 5 Mg Tab) 5 mg PO DAILY [facility] Last Admin: 04/25/20 08:49 Dose: Not Given Documented by: Ascorbic Acid (Ascorbic Acid 500 Mg Tab) 500 mg PO BID [facility] Last Admin: 04/25/20 08:49 Dose: Not Given Documented by: Atorvastatin Calcium (Atorvastatin 10 Mg Tab) 10 mg PO HS [facility] Last Admin: 04/24/20 19:59 Dose: Not Given Documented by: Budesonide (Budesonide 1 Mg/2 Ml Nebu) 1 mg INHALATION RT-BID [facility] Last Admin: 04/25/20 07:47 Dose: 1 mg Documented by: Chlorhexidine Gluconate (Chlorhexidine Gluconate 15 Ml Cup) 15 ml MUCOUS MEM BID [facility] Last Admin: 04/25/20 08:19 Dose: Not Given Documented by: Cholecalciferol (Cholecalciferol 25 Mcg (1000 Iu) Tablet) 25 mcg PO DAILY [facility] Last Admin: 04/25/20 08:49 Dose: Not Given Documented by: Enoxaparin Sodium (Enoxaparin 40 Mg/0.4 Ml Syringe) 40 mg SQ DAILY [facility] Last Admin: 04/25/20 08:51 Dose: 40 mg Documented by: Famotidine (Famotidine 20 Mg Tab) 20 mg PO DAILY [facility] Last Admin: 04/25/20 08:49 Dose: Not Given Documented by: Formoterol Fumarate (Formoterol Fumarate 20 Mcg/2 Ml Nebu) 20 mcg INHALATION RT-BID [facility] Last Admin: 04/25/20 07:47 Dose: 20 mcg Documented by: Haloperidol Lactate (Haloperidol Lactate 5 Mg/Ml 1 Ml Vial) 1 mg IVP Q1H PRN PRN Reason: Agitation or Acute Psychosis Hydralazine HCl (Hydralazine Hcl 20 Mg/Ml 1 Ml Vial) 10 mg IVP Q6HR PRN PRN Reason: Blood Pressure - High Last Admin: 04/25/20 00:00 Dose: 10 mg Documented by: Hydromorphone HCl (Hydromorphone 1 Mg/Ml 1 Ml Syringe) 1 mg IVP Q2HR PRN PRN Reason: Severe Pain Last Admin: 04/24/20 05:21 Dose: 1 mg Documented by: Hydromorphone HCl (Hydromorphone 0.5 Mg/0.5 Ml Syringe) 0.5 mg IVP Q2HR PRN PRN Reason: Moderate Pain Last Admin: 04/22/20 21:43 Dose: 0.5 mg Documented by: Levofloxacin 750 mg/ IV (Solution) 150 mls @ 100 mls/hr IVPB Q24H [facility] Last Admin: 04/25/20 08:50 Dose: 100 mls/hr Documented by: Sodium Chloride (Saline 0.45%) 1,000 mls @ 10 mls/hr IV .Q24H [facility] Last Admin: 04/25/20 09:04 Dose: 10 mls/hr Documented by: Insulin Aspart (Insulin Aspart (Novolog) 100 Unit/Ml Vial) 0 unit SQ Q4HR [facility]; Protocol Last Admin: 04/25/20 12:22 Dose: 2 unit Documented by: Insulin Detemir (Insulin Detemir (Levemir) 100 Unit/Ml Syr) 20 unit SQ DAILY@0700 [facility] Last Admin: 04/25/20 06:35 Dose: 20 unit Documented by: Methylprednisolone Sodium Succinate (Methylprednisolone Sod Succi 40 Mg/Ml 1 Ml Vial) 40 mg IV Q8HR [facility] Last Admin: 04/25/20 08:50 Dose: 40 mg Documented by: Miscellaneous Information (Potassium Replacement Protocol 1 Each Misc) 1 each MISCELLANE DAILY PRN; Protocol PRN Reason: Per Protocol Montelukast Sodium (Montelukast 10 Mg Tab) 10 mg PO HS [facility] Last Admin: 04/24/20 19:59 Dose: Not Given Documented by: Naloxone HCl (Naloxone 0.4 Mg/Ml 1 Ml Vial) 0.2 mg IV Q2M PRN PRN Reason: Opioid Reversal Zinc Sulfate (Zinc Sulfate 220 Mg Cap) 220 mg PO DAILY [facility] Last Admin: 04/25/20 08:51 Dose: Not Given Documented by: Objective - Vital Signs Vital signs: Vital Signs Temp 98 F 04/25/20 12:00 Pulse 96 04/25/20 12:00 Resp 14 04/25/20 12:00 BP 135/89 04/25/20 12:00 Pulse Ox 96 03/04/21 12:00 Intake & Output 04/24/20 04/25/20 04/25/20 18:59 06:59 18:59 Intake Total 354.242 156 228 Output Total 3270 1745 1470 Balance -2915.758 -1589 -1242 Weight 88.5 kg 88.5 kg Intake: IV 277 156 228 Levofloxacin 750Mg-D5w 100 150 Pmx 750 mg In Dextrose/ Water 1 150ml.bag @ 100 mls/hr IVPB Q24H [facility] Rx#: [id number] Pressure bag 57 36 18 Sodium Chloride 0.45% 1, 120 120 60 000 ml @ 10 mls/hr IV . Q24H [facility] Rx#:[id number] Intake, IV Titration 51.242 Amount propofoL 1,000 mg In 51.242 Empty Bag 1 bag @ Titrate IV .Q0M [facility] Rx#: [id number] Tube Feeding 26 Output: Urine 3270 1745 1470 Other: Voiding Method Indwelling Catheter Indwelling Catheter ABP, PAP, CO, CI - Last Documented Arterial Blood Pressure 137/67 - Exam GENERAL: Patient is currently intubated and sedated. Temp is 98.3F, pulse is 78, respirations are 13, blood pressure is 154/71, oxygen saturation is 95% on 4 liters via nasal cannula HEENT: Pupils are round and equally reacting to light. EOMI. No scleral icterus. No conjunctival pallor. Normocephalic, atraumatic. No pharyngeal erythema. No thyromegaly. Eyes opening spontaneously and able to nod. CARDIOVASCULAR: S1 and S2 present. No murmurs, rubs, or gallops. PULMONARY: Diminished breath sounds bilaterally with some scattered rhonchi noted ABDOMEN: Soft, nontender, nondistended, normoactive bowel sounds. No palpable organomegaly. MUSCULOSKELETAL: No joint swelling or deformity. EXTREMITIES: No cyanosis, clubbing, or pedal edema. NEUROLOGICAL: Alert and oriented 2-3 diffusely weak SKIN: No rashes. - Labs CBC & Chem 7: 04/25/20 04:05 04/25/20 04:05 Labs: Abnormal Lab Results - Last 24 Hours (Table) 04/24/20 04/24/20 04/25/20 Range/Units 17:40 20:02 04:05 WBC (3.8-10.6) k/uL Neutrophils # (1.3-7.7) k/uL Carbon Dioxide 35 H (22-30) mmol/L BUN 25 H (7-17) mg/dL Creatinine 0.36 L (0.52-1.04) mg/dL Glucose 162 H (74-99) mg/dL POC Glucose (mg/dL) 140 H 106 H (75-99) mg/dL Calcium 8.0 L (8.4-10.2) mg/dL AST 91 H (14-36) U/L ALT 114 H (4-34) U/L Total Protein 5.7 L (6.3-8.2) g/dL Albumin 3.0 L (3.5-5.0) g/dL 04/25/20 04/25/20 04/25/20 Range/Units 04:05 04:07 06:31 WBC 15.6 H (3.8-10.6) k/uL Neutrophils # 13.4 H (1.3-7.7) k/uL Carbon Dioxide (22-30) mmol/L BUN (7-17) mg/dL Creatinine (0.52-1.04) mg/dL Glucose (74-99) mg/dL POC Glucose (mg/dL) 161 H 135 H (75-99) mg/dL Calcium (8.4-10.2) mg/dL AST (14-36) U/L ALT (4-34) U/L Total Protein (6.3-8.2) g/dL Albumin (3.5-5.0) g/dL 04/25/20 04/25/20 Range/Units 09:03 11:41 WBC (3.8-10.6) k/uL Neutrophils # (1.3-7.7) k/uL Carbon Dioxide (22-30) mmol/L BUN (7-17) mg/dL Creatinine (0.52-1.04) mg/dL Glucose (74-99) mg/dL POC Glucose (mg/dL) 126 H 150 H (75-99) mg/dL Calcium (8.4-10.2) mg/dL AST (14-36) U/L ALT (4-34) U/L Total Protein (6.3-8.2) g/dL Albumin (3.5-5.0) g/dL Assessment and Plan Assessment: -Acute hypoxic respiratory failure secondary to pneumonia with extensive consol idation of right lung requiring mechanical ventilation on 04/19/2020 with extubation on 04/25/2020 -Legionella pneumonia as noted on urine culture along with presumptive Legionella preliminary showing in the sputum culture -Covid 19 ruled out, testing 2 was negative -Sepsis secondary to community-acquired pneumonia -Leukocytosis secondary to severe sepsis -hypertension -Elevated blood sugars: Most likely secondary to IV steroids and tube feedings -Hyperlipidemia -Tachycardia secondary to severe sepsis -Full code Recommendations and discussion: Recommend continue current medications, management, and symptomatic treatment. Patient was extubated yesterday and is maintained on 4 L via nasal cannula. She was seen and evaluated by speech therapy for possible diet and will continue with dysphagia to ground with aspiration precautions. Chest x-ray today shows mild worsening of diffuse bilateral lung infiltrates with a small right pleural effusion. Is continued on IV antibiotics in the form of Levaquin. Sputum Legionella showing presumptive positive on preliminary report at this time. Will continue to monitor Accu-Cheks closely and continue sliding scale along with long-acting as patient is maintained on IV steroids along with bronchodilators and breathing inhalational treatments and will continue. Will continue to monitor closely and adjust once diet is resumed. Pulmonary is following closely. Will continue to monitor vital signs and labs closely and repeat a.m. labs. Possible transfer out of the ICU if patient remains stable. PT/OT to evaluate the patient as she continues to be quite weak in all 4 extremities. Due to multiple complex medical issues, prognosis is guarded. Further recommendations to follow.
[2020-04-25 16:43] LABS: Glucose,Whole Blood 111 mg/dL (75-99)
[2020-04-25 19:56] LABS: Glucose,Whole Blood 121 mg/dL (75-99)
[2020-04-25] MEDS: ATORVASTATIN 10 MG TAB PO SCH (19:59)
[2020-04-25] MEDS: MONTELUKAST 10 MG TAB PO SCH (19:59)
[2020-04-26] MEDS: methylPREDNISolone SOD SUCCI 40 MG/ML 1 ML VIAL IV SCH (00:36)
[2020-04-26] MEDS: IPRATROPIUM-ALBUTEROL 3 ML NEB INHALATION SCH ×6 (00:52→20:51)
[2020-04-26 04:18] LABS: ALT 126 U/L (4-34); AST 66 U/L (14-36); African American GFR (CKD) >90 (>60 ml/min/1.73 sqM); Albumin 3.3 g/dL (3.5-5.0); Alkaline Phosphatase 107 U/L (38-126); Anion Gap 3 mmol/L; Blood Urea Nitrogen 27 mg/dL (7-17); Calcium 8.4 mg/dL (8.4-10.2); Carbon Dioxide 35 mmol/L (22-30); Chloride 101 mmol/L (98-107); Glucose 136 mg/dL (74-99); Non-African American GFR(CKD) >90 (>60 ml/min/1.73 sqM); Potassium 4.5 mmol/L (3.5-5.1); Sodium 139 mmol/L (137-145); Total Bilirubin 0.7 mg/dL (0.2-1.3); Total Protein 5.9 g/dL (6.3-8.2)
[2020-04-26 05:32] LABS: Basophils % (A) 0 %; Eosinophils % (A) 0 %; HGB 12.5 gm/dL (11.4-16.0); Lymphocytes # (A) 1.5 k/uL (1.0-4.8); Lymphocytes % (A) 10 %; MCH 31.3 pg (25.0-35.0); MCHC 32.8 g/dL (31.0-37.0); MCV 95.6 fL (80.0-100.0); Monocytes # (A) 0.6 k/uL (0-1.0); Monocytes % (A) 4 %; Neutrophils # (A) 11.9 k/uL (1.3-7.7); Neutrophils % (A) 84 %; Platelet Count 298 k/uL (150-450); RBC 3.98 m/uL (3.80-5.40); WBC 14.2 k/uL (3.8-10.6)
[2020-04-26 06:22] LABS: Glucose,Whole Blood 151 mg/dL (75-99)
[2020-04-26] MEDS: INSULIN DETEMIR (LEVEMIR) 100 UNIT/ML SYR SQ SCH (06:24)
[2020-04-26] MEDS: INSULIN ASPART (NovoLOG) 100 UNIT/ML VIAL SQ SCH ×4 (06:24→20:38)
--- NOTE | 2020-04-26 07:38 | P.PN ---
Subjective Progress Note Date: 04/26/20 On 05/12/2020 I'm seeing this patient in follow-up in the intensive care unit. This patient has been diagnosed having Legionella pneumonia with extensive bilateral consolidation acute hypoxic respiratory failure, requiring intubation mechanical ventilation as of 04/19/2020. The patient currently is on mechanical ventilator on assist control mode at the rate of 34 with a tidal volume of 350 and FiO2 of 40% and a PEEP of 15. The blood gases from today shows a pH of 7.42 with a pCO2 of 42 and pO2 of 92. Chest x-ray continues to show improvement in the right lung consolidation there is also improvement in her left lower lobe consolidation. ET tube is in a good location. White cell count the 19.3 and is down. The patient is hemodynamically stable and the patient is on no pressors. The patient is currently on propofol sedated at the rate of 50 mcg/kg per minute. IV fluids is running at 75 mL an hour. She has a triple-lumen catheter in her left subclavian and she has also an arterial line in her right upper extremity. No signs of any fluid overload. She is receiving enteral feeding for nutritional support and she is currently on vital high protein at the rate of 20 mL an hour. Antibiotic coverage includes a combination of Zithromax and Rocephin. She is also on IV Solu Medrol 40 mg every 8 hours. Fluid balance +1 L, and the COVID 19 testing was negative. Liver function tests are improving and his CPK was 346 and time of admission. The peak airway pressure is around 34 static airway pressure is 29. On 04/23/2020 I'm seeing the patient will follow-up. This patient has a severe Legionella pneumonia the patient is currently on Levaquin. She also has hypoxic respiratory failure and she is on a mechanical ventilator on assist control mode with a tidal volume of 350 and FiO2 of 40% with a PEEP of 13 the follow-up chest x-ray from today is essentially looking stable with some ongoing improvement in the right lower lobe and the left lung consolidation is also improving. ET tube is in a good location. The patient has a peak airway pressure of around 31 anesthetic pressures also 29. The blood gases showed a pH of 7.47 with a pCO2 of 43 and pO2 100.. The neck fluid balance was -1.6 L over the past 24 hours. The patient was given a dose of Lasix 40 mg IV push 1 and the sodium level today is at 147 which is essentially the same as yesterday with a BUN of 38 and a creatinine of 0.58. She is afebrile. She is hemodynamically stable on no pressors. She is receiving enteral feeding for nutritional support in the form of vital high protein at the rate of 26 mL an hour and this is her goal. He is also receiving 200 mL of water flushes and her IV fluids are running at KVO. She is on propofol running at 50 g/kg per minute. On 04/24/2020 I'm seeing the patient for a follow-up. She is doing well. No specific issues overnight. She remains on a mechanical ventilator. On today's evaluation, the patient is an assist-control mode with a rate of 24, tidal volume of 400 with a PEEP of 6 and FiO2 of 40%. The chest x-ray shows some infiltration of the lung bases. There is significant clearing of the vital pulmonary infiltrates. ET tube is in a good location. OG tube is in a good location. The blood gases showed a pH of 7.45 with a pCO2 of 48 and pO2 of 84. White cell count is at 11.3 which is lower compared to yesterday and the patient's renal function test is also within normal limits. The fluid balance over the past 24 hours is -1.6 L as the patient was given diuretics yesterday in the form of Lasix. Currently she is on Levaquin regarding her Legionella pneumonia. She is on IV Solu-Medrol. She is on bronchodilators. She is on h arjun-normal saline at the rate of 10 mL an hour which is running at KVO and this morning she is sedated with propofol running at 40 mcg/kg per minute. The patient has no other issues for now. Note that the sputum analysis also came back positive for Legionella. A sedation holiday will be given to her today and assess her candidacy for further weaning. On 04/25/2020 I'm seeing the patient for a follow-up. Note that the patient was extubated yesterday to a nasal cannula and currently she is on 4 L of oxygen by nasal cannula. She is comfortable laying down comfortably in bed without any major respiratory issues. No significant cough or sputum production pulse ox is around 95% on room air and she remains hemodynamically stable. Note that she was extubated yesterday without any major difficulties. Chest x-ray still showing bilateral pulmonary infiltrates and possibly a developing effusion on the right. The patient is a negative fluid balance patient was given a dose of Lasix yesterday and she is at least 2 L negative over the past 24 hours. Overnight, the patient became quite delirious and restless and agitated. I ordered Haldol however this was not given as the patient's condition gradually settled down.. She is weak and there is global generalized weakness in all 4 extremities. She has a decent cough. She remains nothing by mouth for now. No nausea. No vomiting. No abdominal pain. No chest pain. No focal neurological deficits. She is afebrile. She remains on Levaquin. She remains on systemic steroids. On 04/26/2020 the patient is awake and she is much more oriented and calm on today's evaluation. She is pulse oxing 96% on oxygen at 2 L per minute. Her pulse ox is around 97%. Her chest x-ray showing further clearing of the right lung pulmonary infiltrate and the patient had an ultrasound of the chest that showed no evidence of sizable pleural effusion and for that reason no thoracentesis was attempted. The patient was given Lasix yesterday and she had good diuresis and the fluid balance over the next 24 hours was in the order of 4.5 L. She is getting gradually stronger. She is awake and alert. She is moving all extremities. She has global weakness which is also improving. No agitation. No delirium. No restlessness. Sputum culture was positive for Legionella. Blood cultures were negative, Legionella urine antigen was positive for Legionella and this is a typical legionnaires disease. She remains on steroids and the patient is taken IV Solu-Medrol at a dose of 40 mg every 8 hours. She is on Levemir insulin for blood sugar control at 20 units and she is also on a size kilo coverage. The patient has been advanced to regular diet for now. I'm very happy with her overall progress. She remains on Levaquin. Objective - Vital Signs Vital signs: Vital Signs Temp 98.5 F 04/26/20 04:00 Pulse 73 04/26/20 07:00 Resp 13 04/26/20 07:00 BP 126/80 04/26/20 07:00 Pulse Ox 96 04/26/20 07:00 Intake & Output 04/25/20 04/26/20 04/26/20 18:59 06:59 18:59 Intake Total 306 220 10 Output Total 1800 760 175 Balance -9215 -285 -165 Weight 88.5 kg 86.7 kg Intake: IV 306 120 10 Levofloxacin 750Mg-D5w 150 Pmx 750 mg In Dextrose/ Water 1 150ml.bag @ 100 mls/hr IVPB Q24H [facility] Rx#: [id number] Pressure bag 36 Sodium Chloride 0.45% 1, 120 120 10 000 ml @ 10 mls/hr IV . Q24H [facility] Rx#:[id number] Oral 100 Output: Urine 1800 760 175 Other: Voiding Method Indwelling Catheter Indwelling Catheter ABP, PAP, CO, CI - Last Documented Arterial Blood Pressure 118/59 - Exam No acute distress, the patient is on 2 L of oxygen by nasal cannula. No signs of any respiratory distress. The patient does have some underlying confusion and she remains somewhat delirious. She is not oriented to place Head exam was generally normal. There was no scleral icterus or corneal arcus. Mucous membranes were moist. HEENT examination is grossly unremarkable. Neck supple full range of motion. No adenopathy or thyromegaly. Neck veins are flat. Cardiac exam revealed the PMI to be normally situated and sized. The rhythm was regular and no extrasystoles were noted during several minutes of auscultation. The first and second heart sounds were normal and physiologic splitting of the second heart sound was noted. There were no murmurs, rubs, clicks, or gallops. Pulmonary examination reveals diffuse coarse rhonchi. Breath sounds are equal. No wheezes or crackles. Abdomen soft. Sounds are heard. No masses or tenderness. Extremities are intact. No cyanosis clubbing or edema. Examination of the skin revealed no evidence of significant rashes, suspicious appearing nevi or other concerning lesions. Neurologic , awake and alert, alert and oriented 3 , moving all 4 extremities without any limitation, no cranial nerve deficits, moving all 4 extremities. - Labs CBC & Chem 7: 04/26/20 03:50 04/26/20 03:50 Labs: Abnormal Lab Results - Last 24 Hours (Table) 04/25/20 04/25/20 04/25/20 Range/Units 09:03 11:41 16:41 WBC (3.8-10.6) k/uL Neutrophils # (1.3-7.7) k/uL Carbon Dioxide (22-30) mmol/L BUN (7-17) mg/dL Creatinine (0.52-1.04) mg/dL Glucose (74-99) mg/dL POC Glucose (mg/dL) 126 H 150 H 111 H (75-99) mg/dL AST (14-36) U/L ALT (4-34) U/L Total Protein (6.3-8.2) g/dL Albumin (3.5-5.0) g/dL 04/25/20 04/26/20 04/26/20 Range/Units 19:55 03:50 03:50 WBC 14.2 H (3.8-10.6) k/uL Neutrophils # 11.9 H (1.3-7.7) k/uL Carbon Dioxide 35 H (22-30) mmol/L BUN 27 H (7-17) mg/dL Creatinine 0.48 L (0.52-1.04) mg/dL Glucose 136 H (74-99) mg/dL POC Glucose (mg/dL) 121 H (75-99) mg/dL AST 66 H (14-36) U/L ALT 126 H (4-34) U/L Total Protein 5.9 L (6.3-8.2) g/dL Albumin 3.3 L (3.5-5.0) g/dL 04/26/20 Range/Units 06:20 WBC (3.8-10.6) k/uL Neutrophils # (1.3-7.7) k/uL Carbon Dioxide (22-30) mmol/L BUN (7-17) mg/dL Creatinine (0.52-1.04) mg/dL Glucose (74-99) mg/dL POC Glucose (mg/dL) 151 H (75-99) mg/dL AST (14-36) U/L ALT (4-34) U/L Total Protein (6.3-8.2) g/dL Albumin (3.5-5.0) g/dL Assessment and Plan Plan: 1 Acute hypoxemic respiratory failure, with intubation and mechanical ventilation on 04/19/2020. She was extubated on 04/24/2020 and currently she is on 4 L of oxygen by nasal cannula. Chest x-ray showing improvement in the pulmonary infiltrates and the patient has no pleural effusion on chest x-ray and ultrasound findings. She is currently on 2 L of oxygen by nasal cannula. 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 The patient is afebrile. The patient is hemodynamically stable, the patient is extubated on 2 l by nasal cannula 3 Acute hypoxemic respiratory failure secondary to extensive consolidative pneumonia bilaterally. Improving on 2 by nasal cannula 4 History of asthma. 5 History of hypertension. 6 History of hyperlipidemia. 7 History of chronic tobacco use with nicotine addiction, having smoked for 32 years, rule out COPD. 8 Mild metabolic acidosis, recovered 9 acute kidney injury , recovered 10 acute leukocytosis secondary to above, improved, currently down to 14 and the white cell count has been improving. Plan: continue Levaquin 750 mg by mouth daily to complete a total of 10 day course Swallow evaluationtest and the patient advanced to regular diet IV fluids to KVO Continue monitoring and involve physical therapy for passive range of motion if possible sit up on a chair Monitor the blood sugars This continued IV Solu Medrol start the patient prednisone burst taper Blood sugars are stable and the patient is on Levemir insulin 20 units daily along with slight scale coverage I suggest removing tcenterline and establish a peripheral line Chance for this patient to a medical surgical floor and she will need aggressive physical therapy
[2020-04-26] MEDS: BUDESONIDE 1 MG/2 ML NEBU INHALATION SCH ×2 (08:08→20:51)
[2020-04-26] MEDS: FORMOTEROL FUMARATE 20 MCG/2 ML NEBU INHALATION SCH ×2 (08:08→20:51)
--- NOTE | 2020-04-26 08:17 | XR ---
EXAMINATION TYPE: XR chest 1V portable DATE OF EXAM: 04/26/2020 CLINICAL HISTORY: Difficulty breathing and pneumonia progress study. TECHNIQUE: Single AP portable semiupright view of the chest is obtained. COMPARISON: Chest x-ray from one day earlier and older studies. FINDINGS: Stable left internal jugular central venous catheter. Persistent increased opacities right greater than left bilaterally in the mid to lower lungs remain p resent. Some improved aeration thought present. Improved visualization of right hemidiaphragm. Cardia c silhouette size stable and upper limits of normal. Osseous structures are intact. IMPRESSION: Some improving bilateral multifocal mid to lower lung edema and/or infiltrates particular ly in the left lung from one day earlier.
[2020-04-26] MEDS: ENOXAPARIN 40 MG/0.4 ML SYRINGE SQ SCH (08:41)
[2020-04-26] MEDS: CHOLECALCIFEROL 25 MCG (1000 IU) TABLET PO SCH (08:42)
[2020-04-26] MEDS: ZINC SULFATE 220 MG CAP PO SCH (08:42)
[2020-04-26] MEDS: predniSONE 20 MG TAB PO SCH (08:43)
[2020-04-26] MEDS: ASCORBIC ACID 500 MG TAB PO SCH ×2 (08:43→20:40)
[2020-04-26] MEDS: amLODIPine 5 MG TAB PO SCH (08:44)
[2020-04-26] MEDS: LEVOFLOXACIN 750 MG TAB PO SCH (08:44)
[2020-04-26] MEDS: FAMOTIDINE 20 MG TAB PO SCH (08:48)
[2020-04-26] MEDS: SODIUM CHLORIDE 0.45% 1,000 ML IV SCH (11:22)
[2020-04-26 11:58] LABS: Glucose,Whole Blood 130 mg/dL (75-99)
--- NOTE | 2020-04-26 13:44 | P.CONS ---
History of Present Illness - Chief Complaint Medical debility - History of Present Illness I had the opportunity to see patient for inpatient rehab consultation with regard to medical debility. Patient admitted to [facility] 24 with shortness of breath. History of recent vacation to [facility], on aware of any sick person contacts. Seen in consultation by Dr. Zarco who notes Covid negative. Patient being treated for Legionella pneumonia. Chest x-rays followed for infiltrates and chest ultrasound for thoracentesis. Patient is started therapies. PT reports supervision for bed mobility and minimal assistance for gait 10 feet with roller walker. OT reports maximal assistance for upper dressing and bathing and total assistance for lower dressing and toileting two-person moderate assistance for functional mobility and transfers. Previous functional history as elicited from patient corroborative by : 44-year-old left-handed white female who is lives in one floor home with and son. Patient works full-time. Previously independent indeed including gait without device. PMD Dr. Jenkins. Patient has a history smoking but drinking but not currently. Family history father with diabetes. Review of Systems Review of systems: ENT: Denies sneezes or discharge. Eyes: Denies discharge or photophobia. Cardiac: Denies chest pain or palpitation. Pulmonary: Mild shortness of breath. Breast: Denies discharge or lumps. Gastrointestinal: Denies nausea, emesis, constipation, diarrhea. Genitourinary: Denies discharge or frequency. Musculoskeletal: Denies muscle or bone aches. Neurologic: Mild generalized weakness. Endocrine: Denies shakes or sweats. Oncology: Denies cancers. Dermatologic: Denies rash, itching, pruritus. ALLERGY/immunology: Denies sneezes, rashes. Past Medical History Past Medical History: Hyperlipidemia, Hypertension Additional Past Medical History / Comment(s): PCOS History of Any Multi-Drug Resistant Organisms: None Reported Past Surgical History: Section, Tubal Ligation Additional Past Surgical History / Comment(s): cyst removal, Past Anesthesia/Blood Transfusion Reactions: No Reported Reaction Past Psychological History: No Psychological Hx Reported Smoking Status: Current every day smoker Past Alcohol Use History: Daily Past Drug Use History: None Reported - Past Family History Father Family Medical History: Diabetes Mellitus Mother Additional Family Medical History / Comment(s): Mother of ETOH abuse at the age of 61 yrs. Medications and Allergies Home Medications Medication Instructions Recorded Confirmed Type Ibuprofen [Motrin] 800 mg PO TID PRN 08/15/18 04/17/20 History Montelukast [Singulair] 10 mg PO HS 08/15/18 04/17/20 History Simvastatin [Zocor] 20 mg PO HS 08/15/18 04/17/20 History Albuterol Sulfate [Albuterol 2 puff PO Q4H PRN 04/17/20 04/17/20 History Sulfate Hfa] Fluticasone Nasal [place] [Flonase 1 spray EA NOSTRIL BID 04/17/20 04/17/20 History Nasal [place]] Irbesartan [Avapro] 300 mg PO DAILY 04/17/20 04/17/20 History Triamterene/Hydrochlorothiazid 1 cap PO DAILY 04/17/20 04/17/20 History [Dyazide 37.5-25 Capsule] amLODIPine [Norvasc] 5 mg PO DAILY 04/17/20 04/17/20 History Allergies Allergy/AdvReac Type Severity Reaction Status Date / Time codeine AdvReac night Verified 04/17/20 11:44 sweats Physical Exam Vitals: Vital Signs Temp Pulse Resp BP Pulse Ox 04/26/20 12:00 97.7 F 78 22 112/69 93 L 04/26/20 11:46 80 04/26/20 11:40 89 04/26/20 11:00 80 15 115/75 92 L 04/26/20 10:00 77 15 04/26/20 09:00 75 13 126/86 97 04/26/20 08:25 76 04/26/20 08:21 77 04/26/20 08:10 72 04/26/20 08:00 71 13 125/82 97 04/26/20 07:00 73 13 126/80 96 04/26/20 06:00 78 14 129/85 97 04/26/20 05:00 75 11 L 118/80 96 04/26/20 04:00 98.5 F 76 12 117/71 96 04/26/20 03:00 77 15 111/73 96 04/26/20 02:00 75 16 131/69 97 04/26/20 01:00 76 14 116/73 96 04/26/20 00:00 98.9 F 90 12 111/69 96 04/25/20 23:02 82 13 96 03/04/21 23:00 83 13 102/73 96 04/25/20 22:00 89 14 112/71 97 04/25/20 21:03 86 04/25/20 21:00 84 14 113/78 100 04/25/20 20:48 86 04/25/20 20:35 73 96 04/25/20 20:00 98.8 F 79 12 94/64 96 04/25/20 19:00 85 12 104/60 97 04/25/20 18:00 84 16 116/78 97 04/25/20 17:00 86 15 123/82 97 04/25/20 16:23 78 04/25/20 16:09 74 04/25/20 16:00 98.1 F 78 14 145/103 97 04/25/20 15:00 80 25 H 142/96 97 04/25/20 14:00 85 19 132/86 97 Intake and Output 04/25/20 04/26/20 04/26/20 22:59 06:59 14:59 Intake Total 192 80 70 Output Total 410 570 650 Balance -218 490 -580 Intake: IV 92 80 70 Pressure bag 12 Sodium Chloride 0.45% 1, 80 80 70 000 ml @ 10 mls/hr IV . Q24H [facility] Rx#:[id number] Oral 100 Output: Urine 410 570 650 Other: Voiding Method Indwelling Catheter Indwelling Catheter Indwelling Catheter Weight 86.7 kg Skin: Good color, texture, turgor. General: Medium to overweight build and comfortable appearance. Head: Normocephalic, atraumatic. Eyes: Symmetric. Pupils equal round. Ears: Symmetric. Hearing within normal limits. Mouth: Clear. Neck: Supple. Carotid without bruit. Cardiac: Regular rate and rhythm. Lungs: Clear anteriorly and posteriorly. Abdomen: Soft active nontender. Extremities: Normal tone. Neurological: Mental status: Alert, cooperative, pleasant. Cranial nerves: Symmetric facial tone and trapezius. Motor: Active movement all 4 limbs. Sensation: Intact throughout. DTRs: Symmetric and equal throughout. Mobility: Patient and report standby assist for transfer from bed to Shy chair. Results CBC & Chem 7: 04/26/20 03:50 04/26/20 03:50 Labs: Abnormal Lab Results - Last 24 Hours (Table) 03/06/1204/25/20 04/26/20 Range/Units 16:41 19:55 03:50 WBC (3.8-10.6) k/uL Neutrophils # (1.3-7.7) k/uL Carbon Dioxide 35 H (22-30) mmol/L BUN 27 H (7-17) mg/dL Creatinine 0.48 L (0.52-1.04) mg/dL Glucose 136 H (74-99) mg/dL POC Glucose (mg/dL) 111 H 121 H (75-99) mg/dL AST 66 H (14-36) U/L ALT 126 H (4-34) U/L Total Protein 5.9 L (6.3-8.2) g/dL Albumin 3.3 L (3.5-5.0) g/dL 04/26/20 04/26/20 04/26/20 Range/Units 03:50 06:20 11:56 WBC 14.2 H (3.8-10.6) k/uL Neutrophils # 11.9 H (1.3-7.7) k/uL Carbon Dioxide (22-30) mmol/L BUN (7-17) mg/dL Creatinine (0.52-1.04) mg/dL Glucose (74-99) mg/dL POC Glucose (mg/dL) 151 H 130 H (75-99) mg/dL AST (14-36) U/L ALT (4-34) U/L Total Protein (6.3-8.2) g/dL Albumin (3.5-5.0) g/dL Assessment and Plan (1) Respiratory failure Current Visit: Yes Status: Acute Code(s): J96.90 - RESPIRATORY FAILURE, UNSP, UNSP W HYPOXIA OR HYPERCAPNIA SNOMED Code(s): 885431325 Plan: Impression: 1. Medical debility. 2. Acute hypoxic respiratory failure with Legionella pneumonia. 3. Hypertension. 4. Dyslipidemia. Comments and plan: At this time PT and OT are ongoing. They do document some safety concerns including today. Patient was just extubated anticipate she will do well over weekend. I reviewed case Wednesday a.m. for possible need of inpatient rehab. At this time however anticipate patient will be doing well and should be ready for home early next week.
--- NOTE | 2020-04-26 14:45 | P.PN ---
Subjective Progress Note Date: 04/26/20 This is a 44-year-old the pleasant female came in with compensative for shortness of breath. Generalized body aches and fever chills patient symptoms has been going on for about a week patient recently returned from [place] from [place] patient is a unaware of any exposure to sick people although patient was exposed to many people when she visited a [place]. Patient had a chest x- ray and a computed tomography scan of the chest which showed extensive consolidation of the right lung and some consolidation and infiltrate consistent with on the left side. Covid 19 PCR is still pending. Patient is presently on BiPAP patient is being admitted to intensive care unit 04/22/2020 Patient is seen and evaluated and follow-up continues to be closely monitored in the ICU. Patient is maintained on mechanical ventilation and is sedated. IV antibiotics transitioned to Levaquin and pulmonary is following closely. Chest x-ray today shows persistent bilateral multifocal multilobar infiltrates with no significant change from yesterday. White blood count slowly trending down at 19.3, sodium is 147, potassium is 4.5, current creatinine is 0.59. Blood sugars slightly elevated and will continue with sliding scale along with long-acting as patient is on IV steroids. Patient was positive for Legionella and urine and sputum cultures currently pending. 04/23/2020 Patient continues to be closely monitored in the intensive care unit and continues to be intubated and sedated on mechanical vent. Sedation has been decreased and patient able to follow simple commands although unable to wean at this time as chest x-ray continues to show bilateral airspace disease right greater than left without significant change from previous. Patient blood pressures slightly elevated and maintained on Norvasc and will continue. Blood sugars elevated and increased long-acting and will continue with sliding scale with Accu-Cheks every 4 hours. Patient is maintained on IV Levaquin and will continue. Pulmonary following closely. Patient's urine is positive for Legionella and per nursing staff public [facility] has been informed of this finding. A she sputum culture preliminary showing presumptive Legionella species and per documentation on the microbiology report this was also sent to [facility] for confirmation. Patient has intermittent low-grade 100 fever. Blood count is trending down slowly at 15.6. D-dimer slowly trending down as well at 1.51. Sodium slightly elevated at 147 and patient is maintained on gentle IV hydration of sodium chloride 0.45. 04/24/2020 Patient continues to be on mechanical ventilation and currently receiving sedation holiday to assess mentation and functionality and the possibility of weaning. She is currently off propofol and being closely monitored. Patient continues to be in the ICU. White blood count continues to trend down and is 11.3, hemoglobin is stable at 13.6, sodium is 144, potassium is 4.6, BUN is 34 and a creatinine is 0.45. Blood sugars being closely monitored. Patient is maintained on sliding scale along with long-acting and will continue with current regimen. Tube feedings also on hold in attempts at weaning today. Pulmonary regulatory consultant following closely. 04/25/2020 Patient is seen and evaluated and follow-up in continues to be closely monitored in the ICU. Patient was recently extubated yesterday and is currently on 4 L of oxygen via nasal cannula. Patient is alert and oriented 2-3 and responding appropriately to questions and commands although has brief moments of anxiety and confusion thinking nursing staff was her family out in the [place]. Patient is quite weak and will be having PT/OT therapy evaluate the patient. Tube feedings have been discontinued and patient will be maintained on dysphagia to ground with supervision with meals as she was evaluated by speech therapy with these recommendations. Continue to have the head of the bed elevated 30-45. Patient underwent chest ultrasound for the possibility of thoracentesis and showed tiny right and trace left pleural effusions and patient received a dose of Lasix. Chest x-ray today shows stable to slightly worsening bilateral airspace disease right greater than the left with continued right small effusion. Blood sugars continue to be monitored closely and continue with long-acting along with sliding scale before meals and at bedtime and may adjust once diet is advanced. 04/26/2020 Patient is seen and evaluated this morning and tinnitus to be in the ICU being closely monitored although awaiting a transfer to a [facility] unit. Patient is currently maintained on dysphagia to ground diet with assistance and is abhijeet ating. Patient states she doesn't have much of a taste for anything although denies any nausea or vomiting. Chest x-ray today shows some improvement in the bilateral multifocal mid to lower lung edema and/or infiltrates particularly in the left lung from yesterday's chest x-ray. Patient is currently maintained on 2 L of oxygen via nasal cannula and denies any further worsening shortness of breath. Patient does have occasional cough noted on exam. Patient has been working with physical therapy and was consulted by Dr. Lesa hernandez of inpatient rehab. Patient be reevaluated Wednesday and continue with aggressive physical therapy. White blood count today is 14.2 hemoglobin is stable at 12.5, sodium is 139, potassium is 4.5, creatinine is 0.48 and blood sugars are being closely monitored. Will continue with Accu-Cheks before meals and at bedtime. Patient is maintained on antibiotics in the form of Levaquin and will continue. Patient is showing improvement each day and will continue to monitor closely. Review of systems: Constitutional: No reports of fatigue, fever, or chills Cardiovascular: No reports of chest pain or palpitations Respiratory: No reports of shortness of breath , reports occasional cough GI: No reports of nausea, vomiting, or diarrhea : No reports of dysuria or retention Neurovascular: Reports generalized weakness in all 4 extremities although improving from yesterday All medications have been reviewed Active Medications Acetaminophen (Acetaminophen Tab 325 Mg Tab) 650 mg PO Q4HR PRN PRN Reason: Fever and/or Mild Pain Last Admin: 04/18/20 23:52 Dose: 650 mg Documented by: Albuterol/Ipratropium (Ipratropium-Albuterol 3 Ml Neb) 3 ml INHALATION RT-Q4H [facility] Last Admin: 04/26/20 11:39 Dose: 3 ml Documented by: Albuterol/Ipratropium (Ipratropium-Albuterol 3 Ml Neb) 3 ml INHALATION RT-Q2H PRN PRN Reason: Shortness Of Breath Or Wheezing Amlodipine Besylate (Amlodipine 5 Mg Tab) 5 mg PO DAILY [facility] Last Admin: 04/26/20 08:44 Dose: 5 mg Documented by: Ascorbic Acid (Ascorbic Acid 500 Mg Tab) 500 mg PO BID [facility] Last Admin: 04/26/20 08:43 Dose: 500 mg Documented by: Atorvastatin Calcium (Atorvastatin 10 Mg Tab) 10 mg PO HS [facility] Last Admin: 04/25/20 19:59 Dose: 10 mg Documented by: Budesonide (Budesonide 1 Mg/2 Ml Nebu) 1 mg INHALATION RT-BID [facility] Last Admin: 04/26/20 08:08 Dose: 1 mg Documented by: Cholecalciferol (Cholecalciferol 25 Mcg (1000 Iu) Tablet) 25 mcg PO DAILY [facility] Last Admin: 04/26/20 08:42 Dose: 25 mcg Documented by: Enoxaparin Sodium (Enoxaparin 40 Mg/0.4 Ml Syringe) 40 mg SQ DAILY [facility] Last Admin: 04/26/20 08:41 Dose: 40 mg Documented by: Famotidine (Famotidine 20 Mg Tab) 20 mg PO DAILY [facility] Last Admin: 04/26/20 08:48 Dose: 20 mg Documented by: Formoterol Fumarate (Formoterol Fumarate 20 Mcg/2 Ml Nebu) 20 mcg INHALATION RT-BID [facility] Last Admin: 04/26/20 08:08 Dose: 20 mcg Documented by: Haloperidol Lactate (Haloperidol Lactate 5 Mg/Ml 1 Ml Vial) 1 mg IVP Q1H PRN PRN Reason: Agitation or Acute Psychosis Hydralazine HCl (Hydralazine Hcl 20 Mg/Ml 1 Ml Vial) 10 mg IVP Q6HR PRN PRN Reason: Blood Pressure - High Last Admin: 04/25/20 00:00 Dose: 10 mg Documented by: Hydromorphone HCl (Hydromorphone 1 Mg/Ml 1 Ml Syringe) 1 mg IVP Q2HR PRN PRN Reason: Severe Pain Last Admin: 04/24/20 05:21 Dose: 1 mg Documented by: Hydromorphone HCl (Hydromorphone 0.5 Mg/0.5 Ml Syringe) 0.5 mg IVP Q2HR PRN PRN Reason: Moderate Pain Last Admin: 04/22/20 21:43 Dose: 0.5 mg Documented by: Sodium Chloride (Saline 0.45%) 1,000 mls @ 10 mls/hr IV .Q24H [facility] Last Admin: 04/26/20 11:22 Dose: Not Given Documented by: Insulin Aspart (Insulin Aspart (Novolog) 100 Unit/Ml Vial) 0 unit SQ ACHS [facility]; Protocol Last Admin: 04/26/20 12:30 Dose: Not Given Documented by: Insulin Detemir (Insulin Detemir (Levemir) 100 Unit/Ml Syr) 20 unit SQ DAILY @0700 [facility] Last Admin: 04/26/20 06:24 Dose: 20 unit Documented by: Levofloxacin (Levofloxacin 750 Mg Tab) 750 mg PO DAILY [facility] Last Admin: 04/26/20 08:44 Dose: 750 mg Documented by: Miscellaneous Information (Potassium Replacement Protocol 1 Each Misc) 1 each MISCELLANE DAILY PRN; Protocol PRN Reason: Per Protocol Montelukast Sodium (Montelukast 10 Mg Tab) 10 mg PO HS [facility] Last Admin: 04/25/20 19:59 Dose: 10 mg Documented by: Naloxone HCl (Naloxone 0.4 Mg/Ml 1 Ml Vial) 0.2 mg IV Q2M PRN PRN Reason: Opioid Reversal Prednisone (Prednisone 20 Mg Tab) 40 mg PO DAILY [facility] Last Admin: 04/26/20 08:43 Dose: 40 mg Documented by: Zinc Sulfate (Zinc Sulfate 220 Mg Cap) 220 mg PO DAILY [facility] Last Admin: 04/26/20 08:42 Dose: 220 mg Documented by: Objective - Vital Signs Vital signs: Vital Signs Temp 98.5 F 04/26/20 04:00 Pulse 75 04/26/20 09:00 Resp 13 04/26/20 09:00 BP 126/86 04/26/20 09:00 Pulse Ox 97 04/26/20 09:00 Intake & Output 04/25/20 04/26/20 04/26/20 18:59 06:59 18:59 Intake Total 306 220 40 Output Total 1800 760 425 Balance -1494 -540 -385 Weight 88.5 kg 86.7 kg Intake: IV 306 120 40 Levofloxacin 750Mg-D5w 150 Pmx 750 mg In Dextrose/ Water 1 150ml.bag @ 100 mls/hr IVPB Q24H [facility] Rx#: [id number] Pressure bag 36 Sodium Chloride 0.45% 1, 120 120 40 000 ml @ 10 mls/hr IV . Q24H [facility] Rx#:[id number] Oral 100 Output: Urine 1800 760 425 Other: Voiding Method Indwelling Catheter Indwelling Catheter ABP, PAP, CO, CI - Last Documented Arterial Blood Pressure 118/59 - Exam GENERAL: She was recently extubated and currently on 2 L nasal cannula, well- developed, well-nourished. A she is alert and oriented 3 Temp is 98.5F, pulse is 71, respirations are 14, blood pressure is 125/82, oxygen saturation is 97% on 2 liters via nasal cannula HEENT: Pupils are round and equally reacting to light. EOMI. No scleral icterus. No conjunctival pallor. Normocephalic, atraumatic. No pharyngeal erythema. No thyromegaly. CARDIOVASCULAR: S1 and S2 present. No murmurs, rubs, or gallops. PULMONARY: Diminished breath sounds bilaterally with some scattered rhonchi noted ABDOMEN: Soft, nontender, nondistended, normoactive bowel sounds. No palpable organomegaly. MUSCULOSKELETAL: No joint swelling or deformity. EXTREMITIES: No cyanosis, clubbing, or pedal edema. NEUROLOGICAL: Alert and oriented 3 diffusely weak SKIN: No rashes. - Labs CBC & Chem 7: 04/26/20 03:50 04/26/20 03:50 Labs: Abnormal Lab Results - Last 24 Hours (Table) 04/25/20 04/25/20 04/25/20 Range/Units 11:41 16:41 19:55 WBC (3.8-10.6) k/uL Neutrophils # (1.3-7.7) k/uL Carbon Dioxide (22-30) mmol/L BUN (7-17) mg/dL Creatinine (0.52-1.04) mg/dL Glucose (74-99) mg/dL POC Glucose (mg/dL) 150 H 111 H 121 H (75-99) mg/dL AST (14-36) U/L ALT (4-34) U/L Total Protein (6.3-8.2) g/dL Albumin (3.5-5.0) g/dL 04/26/20 04/26/20 04/26/20 Range/Units 03:50 03:50 06:20 WBC 14.2 H (3.8-10.6) k/uL Neutrophils # 11.9 H (1.3-7.7) k/uL Carbon Dioxide 35 H (22-30) mmol/L BUN 27 H (7-17) mg/dL Creatinine 0.48 L (0.52-1.04) mg/dL Glucose 136 H (74-99) mg/dL POC Glucose (mg/dL) 151 H (75-99) mg/dL AST 66 H (14-36) U/L ALT 126 H (4-34) U/L Total Protein 5.9 L (6.3-8.2) g/dL Albumin 3.3 L (3.5-5.0) g/dL Assessment and Plan Assessment: -Acute hypoxic respiratory failure secondary to pneumonia with extensive consolidation of right lung requiring mechanical ventilation on 04/19/2020 with extubation on 04/25/2020 -Legionella pneumonia as noted on urine culture along with presumptive positive Legionella in the sputum culture -Covid 19 ruled out, testing 2 was negative -Sepsis secondary to community-acquired pneumonia -Leukocytosis secondary to severe sepsis -hypertension -Elevated blood sugars: Most likely secondary to IV steroids and tube feedings -Hyperlipidemia -Tachycardia secondary to severe sepsis -Full code Recommendations and discussion: Recommend continue current medications, management, and symptomatic treatment. Patient was extubated and is maintained on 2 L via nasal cannula. Wean FiO2 as tolerated. Continue with oral antibiotics in the form of Levaquin. Patient has also been transition to oral steroids and will continue with breathing inhalational treatments. Will continue to monitor Accu-Cheks closely and continue sliding scale along with long-acting as patient is maintained on steroids. Will continue to monitor closely and adjust as needed. Pulmonary is following closely. Will continue to monitor vital signs and labs closely and repeat a.m. labs. [facility] out of the ICU.. PT/OT to to continue to aggressively work with patient daily. She was seen by Dr. Mcfadden and is being considered for possible inpatient rehab although will be reevaluated early next week. Case management is following for possibility of home care with rehab in the outpatient setting. Due to multiple complex medical issues, prognosis is guarded. Further recommendations to follow.
[2020-04-26 17:41] LABS: Glucose,Whole Blood 114 mg/dL (75-99)
[2020-04-26 20:39] LABS: Glucose,Whole Blood 113 mg/dL (75-99)
[2020-04-26] MEDS: ATORVASTATIN 10 MG TAB PO SCH (20:40)
[2020-04-26] MEDS: MONTELUKAST 10 MG TAB PO SCH (20:40)
[2020-04-26 21:07] VITALS: RESP 16
[2020-04-27] MEDS: IPRATROPIUM-ALBUTEROL 3 ML NEB INHALATION SCH ×5 (03:08→20:45)
[2020-04-27 07:20] LABS: Glucose,Whole Blood 84 mg/dL (75-99)
[2020-04-27] MEDS: BUDESONIDE 1 MG/2 ML NEBU INHALATION SCH ×2 (08:00→20:45)
[2020-04-27] MEDS: FORMOTEROL FUMARATE 20 MCG/2 ML NEBU INHALATION SCH ×2 (08:00→20:45)
[2020-04-27] MEDS: INSULIN ASPART (NovoLOG) 100 UNIT/ML VIAL SQ SCH ×4 (08:32→21:03)
[2020-04-27] MEDS: INSULIN DETEMIR (LEVEMIR) 100 UNIT/ML SYR SQ SCH (08:32)
[2020-04-27] MEDS: CHOLECALCIFEROL 25 MCG (1000 IU) TABLET PO SCH (08:33)
[2020-04-27] MEDS: FAMOTIDINE 20 MG TAB PO SCH (08:33)
[2020-04-27] MEDS: amLODIPine 5 MG TAB PO SCH (08:33)
[2020-04-27] MEDS: LEVOFLOXACIN 750 MG TAB PO SCH (08:33)
[2020-04-27] MEDS: ASCORBIC ACID 500 MG TAB PO SCH ×2 (08:33→21:03)
[2020-04-27] MEDS: predniSONE 20 MG TAB PO SCH (08:33)
[2020-04-27] MEDS: ZINC SULFATE 220 MG CAP PO SCH (08:34)
[2020-04-27] MEDS: ENOXAPARIN 40 MG/0.4 ML SYRINGE SQ SCH (08:35)
[2020-04-27] MEDS: FAMOTIDINE 20 MG/2 ML VIAL IV SCH (11:19)
[2020-04-27 11:25] LABS: ALT 125 U/L (4-34); AST 69 U/L (14-36); African American GFR (CKD) >90 (>60 ml/min/1.73 sqM); Albumin 3.5 g/dL (3.5-5.0); Albumin/Globulin Ratio 1.3; Alkaline Phosphatase 114 U/L (38-126); Anion Gap 10 mmol/L; Blood Urea Nitrogen 31 mg/dL (7-17); Calcium 8.6 mg/dL (8.4-10.2); Carbon Dioxide 28 mmol/L (22-30); Chloride 101 mmol/L (98-107); Globulin 2.7 g/dL; Glucose 101 mg/dL (74-99); Non-African American GFR(CKD) >90 (>60 ml/min/1.73 sqM); Sodium 139 mmol/L (137-145); Total Bilirubin 0.7 mg/dL (0.2-1.3); Total Protein 6.2 g/dL (6.3-8.2)
[2020-04-27 11:36] LABS: Glucose,Whole Blood 145 mg/dL (75-99)
--- NOTE | 2020-04-27 13:50 | P.PN ---
Subjective Progress Note Date: 04/27/20 On 05/12/2020 I'm seeing this patient in follow-up in the intensive care unit. This patient has been diagnosed having Legionella pneumonia with extensive bilateral consolidation acute hypoxic respiratory failure, requiring intubation mechanical ventilation as of 04/19/2020. The patient currently is on mechanical ventilator on assist control mode at the rate of 34 with a tidal volume of 350 and FiO2 of 40% and a PEEP of 15. The blood gases from today shows a pH of 7.42 with a pCO2 of 42 and pO2 of 92. Chest x-ray continues to show improvement in the right lung consolidation there is also improvement in her left lower lobe consolidation. ET tube is in a good location. White cell count the 19.3 and is down. The patient is hemodynamically stable and the patient is on no pressors. The patient is currently on propofol sedated at the rate of 50 mcg/kg per minute. IV fluids is running at 75 mL an hour. She has a triple-lumen catheter in her left subclavian and she has also an arterial line in her right upper extremity. No signs of any fluid overload. She is receiving enteral feeding for nutritional support and she is currently on vital high protein at the rate of 20 mL an hour. Antibiotic coverage includes a combination of Zithromax and Rocephin. She is also on IV Solu Medrol 40 mg every 8 hours. Fluid balance +1 L, and the COVID 19 testing was negative. Liver function tests are improving and his CPK was 346 and time of admission. The peak airway pressure is around 34 static airway pressure is 29. On 04/23/2020 I'm seeing the patient will follow-up. This patient has a severe Legionella pneumonia the patient is currently on Levaquin. She also has hypoxic respiratory failure and she is on a mechanical ventilator on assist control mode with a tidal volume of 350 and FiO2 of 40% with a PEEP of 13 the follow-up chest x-ray from today is essentially looking stable with some ongoing improvement in the right lower lobe and the left lung consolidation is also improving. ET tube is in a good location. The patient has a peak airway pressure of around 31 anesthetic pressures also 29. The blood gases showed a pH of 7.47 with a pCO2 of 43 and pO2 100.. The neck fluid balance was -1.6 L over the past 24 hours. The patient was given a dose of Lasix 40 mg IV push 1 and the sodium level today is at 147 which is essentially the same as yesterday with a BUN of 38 and a creatinine of 0.58. She is afebrile. She is hemodynamically stable on no pressors. She is receiving enteral feeding for nutritional support in the form of vital high protein at the rate of 26 mL an hour and this is her goal. He is also receiving 200 mL of water flushes and her IV fluids are running at KVO. She is on propofol running at 50 g/kg per minute. On 04/24/2020 I'm seeing the patient for a follow-up. She is doing well. No specific issues overnight. She remains on a mechanical ventilator. On today's evaluation, the patient is an assist-control mode with a rate of 24, tidal volume of 400 with a PEEP of 6 and FiO2 of 40%. The chest x-ray shows some infiltration of the lung bases. There is significant clearing of the vital pulmonary infiltrates. ET tube is in a good location. OG tube is in a good location. The blood gases showed a pH of 7.45 with a pCO2 of 48 and pO2 of 84. White cell count is at 11.3 which is lower compared to yesterday and the patient's renal function test is also within normal limits. The fluid balance over the past 24 hours is -1.6 L as the patient was given diuretics yesterday in the form of Lasix. Currently she is on Levaquin regarding her Legionella pneumonia. She is on IV Solu-Medrol. She is on bronchodilators. She is on h arjun-normal saline at the rate of 10 mL an hour which is running at KVO and this morning she is sedated with propofol running at 40 mcg/kg per minute. The patient has no other issues for now. Note that the sputum analysis also came back positive for Legionella. A sedation holiday will be given to her today and assess her candidacy for further weaning. On 04/25/2020 I'm seeing the patient for a follow-up. Note that the patient was extubated yesterday to a nasal cannula and currently she is on 4 L of oxygen by nasal cannula. She is comfortable laying down comfortably in bed without any major respiratory issues. No significant cough or sputum production pulse ox is around 95% on room air and she remains hemodynamically stable. Note that she was extubated yesterday without any major difficulties. Chest x-ray still showing bilateral pulmonary infiltrates and possibly a developing effusion on the right. The patient is a negative fluid balance patient was given a dose of Lasix yesterday and she is at least 2 L negative over the past 24 hours. Overnight, the patient became quite delirious and restless and agitated. I ordered Haldol however this was not given as the patient's condition gradually settled down.. She is weak and there is global generalized weakness in all 4 extremities. She has a decent cough. She remains nothing by mouth for now. No nausea. No vomiting. No abdominal pain. No chest pain. No focal neurological deficits. She is afebrile. She remains on Levaquin. She remains on systemic steroids. On 04/26/2020 the patient is awake and she is much more oriented and calm on today's evaluation. She is pulse oxing 96% on oxygen at 2 L per minute. Her pulse ox is around 97%. Her chest x-ray showing further clearing of the right lung pulmonary infiltrate and the patient had an ultrasound of the chest that showed no evidence of sizable pleural effusion and for that reason no thoracentesis was attempted. The patient was given Lasix yesterday and she had good diuresis and the fluid balance over the next 24 hours was in the order of 4.5 L. She is getting gradually stronger. She is awake and alert. She is moving all extremities. She has global weakness which is also improving. No agitation. No delirium. No restlessness. Sputum culture was positive for Legionella. Blood cultures were negative, Legionella urine antigen was positive for Legionella and this is a typical legionnaires disease. She remains on steroids and the patient is taken IV Solu-Medrol at a dose of 40 mg every 8 hours. She is on Levemir insulin for blood sugar control at 20 units and she is also on a size kilo coverage. The patient has been advanced to regular diet for now. I'm very happy with her overall progress. She remains on Levaquin. 04/27/2020, the patient is out of the intensive care unit and she is currently on a medical floor on room air oxygen with a pulse ox of 91%. She has legionnaires disease with Legionella pneumonia and she is still completing a course of Levaquin. She is post respiratory failure requiring intubation mechanical ventilation and she has recovered. Hemodynamically stable. She is profoundly weak and she would obviously need rehabilitation. We have services were consulted. White cell count is at 14. Rest of the electrolytes showed no major abnormalities in the renal function is also stable and within normal limits. The patient has global weakness in all 4 extremities. No fever. No chills. No nausea or vomiting. She is able to tolerate diet slowly. Objective - Vital Signs Vital signs: Vital Signs Temp 97.6 F 04/27/20 11:17 Pulse 90 04/27/20 11:17 Resp 16 04/27/20 11:17 BP 106/69 04/27/20 11:17 Pulse Ox 91 L 04/27/20 11:17 Intake & Output 04/26/20 04/27/20 04/27/20 18:59 06:59 18:59 Intake Total 940 Output Total 850 Balance 90 Weight 83.7 kg Intake: IV 220 Levofloxacin 750Mg-D5w 150 Pmx 750 mg In Dextrose/ Water 1 150ml.bag @ 100 mls/hr IVPB Q24H [facility] Rx#: [id number] Sodium Chloride 0.45% 1, 70 000 ml @ 10 mls/hr IV . Q24H [facility] Rx#:[id number] Oral 720 Output: Urine 850 Other: Voiding Method Indwelling Catheter Indwelling Catheter # Voids 3 2 1 # Bowel Movements 1 ABP, PAP, CO, CI - Last Documented Arterial Blood Pressure 118/59 - Exam No acute distress, the patient is on RA. No signs of any respiratory distress. The patient does have some underlying confusion and she remains somewhat delirious. She is not oriented to place Head exam was generally normal. There was no scleral icterus or corneal arcus. Mucous membranes were moist. HEENT examination is grossly unremarkable. Neck supple full range of motion. No adenopathy or thyromegaly. Neck veins are flat. Cardiac exam revealed the PMI to be normally situated and sized. The rhythm was regular and no extrasystoles were noted during several minutes of auscultation. The first and second heart sounds were normal and physiologic splitting of the second heart sound was noted. There were no murmurs, rubs, clicks, or gallops. Pulmonary examination reveals diffuse coarse rhonchi. Breath sounds are equal. No wheezes or crackles. Abdomen soft. Sounds are heard. No masses or tenderness. Extremities are intact. No cyanosis clubbing or edema. Examination of the skin revealed no evidence of significant rashes, suspicious appearing nevi or other concerning lesions. Neurologic , awake and alert, alert and oriented 3 , moving all 4 extremities without any limitation, no cranial nerve deficits, moving all 4 extremities. - Labs CBC & Chem 7: 04/26/20 03:50 04/27/20 09:41 Labs: Abnormal Lab Results - Last 24 Hours (Table) 04/26/20 04/26/20 04/27/20 Range/Units 17:38 20:22 09:41 BUN 31 H (7-17) mg/dL Creatinine 0.49 L (0.52-1.04) mg/dL Glucose 101 H (74-99) mg/dL POC Glucose (mg/dL) 114 H 113 H (75-99) mg/dL AST 69 H (14-36) U/L ALT 125 H (4-34) U/L Total Protein 6.2 L (6.3-8.2) g/dL 04/27/20 Range/Units 11:20 BUN (7-17) mg/dL Creatinine (0.52-1.04) mg/dL Glucose (74-99) mg/dL POC Glucose (mg/dL) 145 H (75-99) mg/dL AST (14-36) U/L ALT (4-34) U/L Total Protein (6.3-8.2) g/dL Assessment and Plan Plan: 1 Acute hypoxemic respiratory failure, with intubation and mechanical ventilation on 04/19/2020. She was extubated on 04/24/2020 and currently she is on 4 L of oxygen by nasal cannula. Chest x-ray showing improvement in the pulmonary infiltrates and the patient has no pleural effusion on chest x-ray and ultrasound findings. She is currently on RA 2 Legionella pneumonia with extensive bilateral, right greater than left, pneumonia, thought to be Legionnaires' disease (Legionella pneumophila pneumonia). The patient is afebrile. The patient is hemodynamically stable, the patient is extubated on RA 3 Acute hypoxemic respiratory failure secondary to extensive consolidative pneumonia bilaterally, recovered 4 History of asthma. 5 History of hypertension. 6 History of hyperlipidemia. 7 History of chronic tobacco use with nicotine addiction, having smoked for 32 years, rule out COPD. 8 Mild metabolic acidosis, recovered 9 acute kidney injury , recovered 10 acute leukocytosis secondary to above, improved, currently down to 14 and the white cell count has been improving. Plan: continue Levaquin 750 mg by mouth daily to complete a total of 10 day course tolerating diet IV fluids to KVO Continue monitoring and involve physical therapy for passive range of motion if possible sit up on a chair Monitor the blood sugars prednisone burst taper Blood sugars are stable and the patient is on Levemir insulin 20 units daily along with slight scale coverage I do not see any issues for her to get released home
[2020-04-27 17:20] LABS: Basophils # (A) 0.03 X 10*3/uL (0.00-0.10); Basophils % (A) 0.2 %; Eosinophils # (A) 0.12 X 10*3/uL (0.04-0.35); Eosinophils % (A) 0.8 %; HCT 38.8 % (37.2-46.3); HGB 12.5 g/dL (12.0-15.0); Lymphocytes # (A) 3.67 X 10*3/uL (0.90-5.00); MCH 30.6 pg (27.0-32.0); MCHC 32.2 g/dL (32.0-37.0); MCV 95.1 fL (80.0-97.0); Mean Platelet Volume 11.7 fL (9.5-12.2); Monocytes # (A) 0.93 X 10*3/uL (0.20-1.00); Monocytes % (A) 6.1 %; Neutrophils # (A) 10.37 X 10*3/uL (1.80-7.70); Neutrophils % (A) 67.9 %; Platelet Count 293 X 10*3/uL (140-440); RBC 4.08 X 10*6/uL (4.10-5.20); RDW 14.6 % (11.5-14.5); WBC 15.28 X 10*3/uL (4.50-10.00)
[2020-04-27 17:24] LABS: Glucose,Whole Blood 126 mg/dL (75-99)
--- NOTE | 2020-04-27 18:01 | PN ---
PROGRESS NOTE DATE OF SERVICE: 04/27/2020. This 44-year-old woman who was admitted with acute hypoxic respiratory failure is being closely monitored. The patient had bilateral pneumonia. Most recent chest x-ray which was done yesterday which I reviewed personally showed significant lesions especially on the right side. Dr. Leon is following the patient closely. No fever. No cough. PAST MEDICAL HISTORY: Reviewed. REVIEW OF SYMPTOMS: CARDIOVASCULAR: As mentioned earlier. RESPIRATORY: As mentioned earlier. GI: No nausea or vomiting. : No dysuria. NERVOUS SYSTEM: No numbness or weakness. CURRENT MEDICATIONS: Reviewed and include: Tylenol, DuoNeb, Norvasc, vitamin C, Pulmicort, Lovenox, Haldol, Levemir, Levaquin, Singulair, prednisone. PHYSICAL EXAM: Patient is alert and oriented times three. Pulse is 90, blood pressure 106/69, respirations 16, temperature 97.6, pulse ox 92% on room air. HEENT: Conjunctivae normal. CARDIOVASCULAR: S1, S2. RESPIRATORY: Breath sounds diminished in the bases. A few scattered rhonchi and crackles. ABDOMEN is soft. Nontender. NERVOUS SYSTEM: No focal deficits. LAB: AST 16, ALT is 125. ASSESSMENT: 1. Acute hypoxic respiratory failure secondary to legionella pneumonia with extensive consolidation in the right lung with mechanical ventilation from April 19 to April 25. 2. Acute Legionella pneumonia noted in the urine antigen. 3. Covid 19 ruled out. 4. Sepsis secondary to community-acquired pneumonia. 5. Leukocytosis. 6. Hypertension. 7. Change in mental status, acute metabolic encephalopathy. 8. Elevated blood glucose, possibly secondary to IV steroids. 9. Hyperlipidemia. 10.Tachycardia. 11.Gait dysfunction. 12.Critical care polyneuropathy. RECOMMENDATIONS AND DISCUSSION: I recommend to continue current medications, management and symptomatic treatment. Otherwise, at this time, I recommend repeat labs. DVT prophylaxis. Prognosis guarded because of multiple complex medical problems. See orders for details. PT/OT evaluation. Tapering dose of steroids. Further recommendations to follow. MMODL / IJN: [id number] /
[2020-04-27 20:32] LABS: Glucose,Whole Blood 134 mg/dL (75-99)
[2020-04-27] MEDS: MONTELUKAST 10 MG TAB PO SCH (21:03)
[2020-04-27] MEDS: ATORVASTATIN 10 MG TAB PO SCH (21:03)
[2020-04-28] MEDS: IPRATROPIUM-ALBUTEROL 3 ML NEB INHALATION SCH ×3 (03:05→12:24)
[2020-04-28 07:00] LABS: Glucose,Whole Blood 92 mg/dL (75-99)
[2020-04-28] MEDS: INSULIN ASPART (NovoLOG) 100 UNIT/ML VIAL SQ SCH (07:28)
[2020-04-28] MEDS: INSULIN DETEMIR (LEVEMIR) 100 UNIT/ML SYR SQ SCH (07:29)
[2020-04-28 09:01] LABS: Basophils # (A) 0.01 X 10*3/uL (0.00-0.10); Basophils % (A) 0.1 %; Eosinophils # (A) 0.11 X 10*3/uL (0.04-0.35); Eosinophils % (A) 1.1 %; HCT 39.1 % (37.2-46.3); Lymphocytes # (A) 3.79 X 10*3/uL (0.90-5.00); Lymphocytes % (A) 37.9 %; MCH 31.3 pg (27.0-32.0); MCHC 33.2 g/dL (32.0-37.0); MCV 94.2 fL (80.0-97.0); Mean Platelet Volume 11.6 fL (9.5-12.2); Monocytes # (A) 0.72 X 10*3/uL (0.20-1.00); Monocytes % (A) 7.2 %; Neutrophils # (A) 5.31 X 10*3/uL (1.80-7.70); Platelet Count 293 X 10*3/uL (140-440); RBC 4.15 X 10*6/uL (4.10-5.20); RDW 14.5 % (11.5-14.5); WBC 10.01 X 10*3/uL (4.50-10.00)
[2020-04-28] MEDS: FORMOTEROL FUMARATE 20 MCG/2 ML NEBU INHALATION SCH (09:12)
[2020-04-28] MEDS: BUDESONIDE 1 MG/2 ML NEBU INHALATION SCH (09:12)
[2020-04-28] MEDS: FAMOTIDINE 20 MG TAB PO SCH (09:14)
[2020-04-28] MEDS: LEVOFLOXACIN 750 MG TAB PO SCH (09:14)
[2020-04-28] MEDS: predniSONE 20 MG TAB PO SCH (09:14)
[2020-04-28] MEDS: CHOLECALCIFEROL 25 MCG (1000 IU) TABLET PO SCH (09:15)
[2020-04-28] MEDS: ENOXAPARIN 40 MG/0.4 ML SYRINGE SQ SCH (09:15)
[2020-04-28] MEDS: amLODIPine 5 MG TAB PO SCH (09:15)
[2020-04-28] MEDS: ASCORBIC ACID 500 MG TAB PO SCH (09:15)
[2020-04-28] MEDS: ZINC SULFATE 220 MG CAP PO SCH (09:15)
[2020-04-28 10:03] LABS: African American GFR (CKD) 126.7 (60.0-200.0); Albumin 4.2 g/dL (3.80-4.90); Albumin/Globulin Ratio 2.1 (1.60-3.17); Non-African American GFR(CKD) 109.3 (60.0-200.0); Potassium 4.4 mmol/L (3.5-5.5); Total Bilirubin 0.7 mg/dL (0.2-1.2); Total Protein 6.2 g/dL (6.2-8.2)
[2020-04-28 11:18] LABS: Glucose,Whole Blood 127 mg/dL (75-99)
[2020-04-28 11:42] VITALS: BP 101/72; PULSE 85; TEMP 97.6
[2020-04-28] MEDS ORDERED: THIAMINE 100 MG TAB PO SCH (12:00)
[2020-04-28] MEDS ORDERED: FOLIC ACID 1 MG TAB PO SCH (12:00)
[2020-04-28] MEDS ORDERED: MULTIVITAMINS, THERA 1 EACH TAB PO SCH (12:00)
--- NOTE | 2020-04-28 23:45 | DS ---
DISCHARGE SUMMARY DATE OF SERVICE: 04/28/2020 FINAL DIAGNOSES: 1. Acute hypoxic respiratory failure secondary to Legionella pneumonia and extensive consolidation of the right lung as well as mechanical ventilation April 19 to April 25. 2. Acute Legionella pneumonia noted in the urine antigen. 3. Covid 19 ruled out. 4. Sepsis secondary to community-acquired pneumonia. 5. Gait dysfunction. 6. Critical care polyneuropathy. 7. Leukocytosis. 8. Hypertension. 9. Change in mental status, acute metabolic encephalopathy, improved. 10.Elevated blood glucose possibly secondary to IV steroids. 11.Hyperlipidemia. 12.Tachycardia. 13.Gait dysfunction. DISCHARGE DISPOSITION: The patient will be discharged in stable condition with guarded prognosis. The patient is extremely keen on going home. Total time taken: 35 minutes. Discharge cleared by multiple consultants. HISTORY OF PRESENT ILLNESS: This 44-year-old woman with past medical history of multiple medical problems admitted with acute Legionella pneumonia, right more than the left and acute hypoxic respiratory failure. The patient apparently had a trip to [place] recently, but the who went with her was not sick. The patient treated in ICU and with prolonged mechanical ventilation as well as listed above. The patient was given antibiotics. Patient improved significantly. Patient had some weakness also. PT/OT evaluated the patient. However, the patient would rather go home rather than go to [facility] at this time. The patient is keen on going home at this time, and multiple cleared the patient for discharge. The patient will be discharged in stable condition with guarded prognosis. EXAM: Vitals are stable. Cardiovascular: S1, S2. Respiration: A few scattered rhonchi. ABDOMEN: Soft, nontender. Nervous system: No focal deficits. DISCHARGE ADVICE AND MEDICATIONS: 1. Diet is cardiac diet. 2. Activity limited until followup. 3. Follow up with Dr. Jenkins in 2-3 days. 4. Follow up with Dr. Krishnamurthy as recommended. 5. Follow up with Dr. Leon in 1 week. 6. Avapro 300 mg daily. 7. Triamterene hydrochlorothiazide 1 p.o. daily. 8. Fluticasone nasal spray as before. 9. Ibuprofen as before. 10.Norvasc 5 mg p.o. daily. 11.Singulair 10 mg q.h.s. 12.Zocor 20 mg q.h.s. 13.Albuterol 2 puffs q.i.d. and p.r.n. 14.Folic acid 1 mg daily. 15.Levaquin 750 mg daily for 10 days. 16.Multivitamins one daily. 17.Prednisone 40 mg daily for 3 days, 30 for 3 days, 20 for 3 days 10 for 3 days. 18.Tylenol p.r.n. 19.Thiamine 100 mg p.o. daily. Home care and home PT/OT is also being arranged. Once again the patient being discharged in stable condition. Guarded prognosis. MMODL / IJN: [id number] /
== END 2020-04-28 12:45 | disposition home or self-care (01) | DRG 870 ==
LOC: EC 10:20 → 2SICU 12:01 → 5NMEDONC 04-26 14:17
PROVIDERS: ADMIT Internal Medicine; ATTEND Internal Medicine
PROC: 5A1955Z Respiratory Ventilation, Greater than 96 Consecutive Hours (ICD-10-PCS; principal; 2020-04-19)
PROC: 4A133B1 Monitoring of Arterial Pressure, Peripheral, Percutaneous Approach (ICD-10-PCS; principal; 2020-04-19)
PROC: 0BH17EZ Insertion of Endotracheal Airway into Trachea, Via Natural or Artificial Opening (ICD-10-PCS; principal; 2020-04-19)
PROC: 02HV33Z Insertion of Infusion Device into Superior Vena Cava, Percutaneous Approach (ICD-10-PCS; principal; 2020-04-19)
PROC: 4A133J1 Monitoring of Arterial Pulse, Peripheral, Percutaneous Approach (ICD-10-PCS; principal; 2020-04-19)
PROC: 03HY32Z Insertion of Monitoring Device into Upper Artery, Percutaneous Approach (ICD-10-PCS; principal; 2020-04-19)
DX: A41.9 Sepsis, unspecified organism (principal); A48.1 Legionnaires' disease; G93.41 Metabolic encephalopathy; J96.01 Acute respiratory failure with hypoxia; J96.02 Acute respiratory failure with hypercapnia; E87.1 Hypo-osmolality and hyponatremia; E87.2 Acidosis; R65.20 Severe sepsis without septic shock; E78.5 Hyperlipidemia, unspecified; F17.210 Nicotine dependence, cigarettes, uncomplicated; Z20.822 Contact with and (suspected) exposure to COVID-19; G62.9 Polyneuropathy, unspecified; I11.0 Hypertensive heart disease with heart failure; I50.9 Heart failure, unspecified; J45.909 Unspecified asthma, uncomplicated; R13.10 Dysphagia, unspecified; T38.0X5A Adverse effect of glucocorticoids and synthetic analogues, initial encounter; R73.9 Hyperglycemia, unspecified; Z79.51 Long term (current) use of inhaled steroids; Z79.52 Long term (current) use of systemic steroids; Z79.899 Other long term (current) drug therapy; Z83.3 Family history of diabetes mellitus; Z88.5 Allergy status to narcotic agent; Z98.51 Tubal ligation status; R26.9 Unspecified abnormalities of gait and mobility; Z81.1 Family history of alcohol abuse and dependence
CPT/HCPCS: 36415; 36600; 71045; 71275; 76604; 80048; 80053; 82550; 82728; 82805; 83036; 83605; 83615; 83735; 83880; 84145; 84484; 85025; 85379; 85610; 85730; 86140; 86738; 87040; 87070; 87086; 87205; 87449; 87635; 93005; 94002; 94003; 94640; 94660; 96361; 96365; 96375; 99291

== ENCOUNTER → 2024-08-15 | Outpatient (CLI) | payer BC ==
--- NOTE | 2024-08-15 17:18 | CT ---
EXAMINATION TYPE: CT sinus wo con DATE OF EXAM: 08/15/2024 4:38 PM COMPARISON: None. CLINICAL INDICATION: Female, 48 years old with history of J32.0 SINUSITIS; , Chronic sinusitis TECHNIQUE: Multiple thin axial images were obtained through the paranasal sinuses without the use of IV contrast. Additional coronal and sagittal reformatted images were submitted for evaluation. CT DLP: 590.1 mGycm, Automated exposure control for dose reduction was used. FINDINGS: Frontal sinuses: Mucosal thickening along the floor of the bilateral frontal sinuses and opacificatio n of the bilateral frontoethmoidal recesses. Maxillary Sinuses: Mucosal retention cyst in involving the floor the left maxillary sinus. Left maxil david molar partially protruding superiorly into the maxillary sinus. Maxillary Infundibula([facility]): Mild mucosal thickening but otherwise patent. Ethmoid sinuses: Mild scattered ethmoid air cell mucosal thickening. Sphenoid sinuses: Trace mucosal thickening along the floors of the sphenoid sinuses. Additionally, th ere is opacification of the right sphenoethmoidal recess and partial past medication of the left sphe noethmoidal recess. Nasal septum: Rightward nasal septal deviation with osseous spur formation. Nasal Turbinates: Within normal limits. Mastoid air cells & middle ears: The air cells are clear. The middle ears are grossly unremarkable. Modified Soft tissues & Brain: Partially seen without gross abnormality. Globes are intact. Other: Left-sided infraorbital hilar cell noted. Partially visualized came septum pellucidum IMPRESSION: 1. Chronic paranasal sinus disease as described above. 2. Opacification of the frontoethmoidal and sphenoethmoidal recesses secondary to mucosal thickening . 3. Rightward nasal septal radiation with osseous spur formation [facility], , 08/15/2024 5:15 PM
== END | disposition home or self-care (01) ==
LOC: RADCTMAIN 16:12
PROVIDERS: ATTEND Family Medicine
DX: J32.0 Chronic maxillary sinusitis (principal); J34.89 Other specified disorders of nose and nasal sinuses
CPT/HCPCS: 70486